=== PATIENT | female | born 1960 | race Caucasian/White ===

== ENCOUNTER → 2018-01-31 07:45 | Outpatient (CLI) | payer OTHER, SELFPAY ==
[2018-01-31 10:21] LABS: Alanine Aminotransferase 40 IU/L (9-52); Albumin 4.5 g/dL (3.5-5.0); Albumin Globulin Ratio 1.6 (1.0-2.8); Alkaline Phosphatase 101 U/L (38-126); Aspartate Aminotransferase 35 IU/L (14-36); BUN Creatinine Ratio 24.3 (6-22); Bilirubin Total 0.7 mg/dL (0.2-1.3); Blood Urea Nitrogen 17 mg/dL (7-17); Calcium 9.4 mg/dL (8.4-10.2); Carbon Dioxide 29 mmol/L (22-32); Chloride 104 mmol/L (98-107); Cholesterol 221 mg/dL (140-199); Estimated Glomerular Filt Rate > 60.0 mL/min (>60); Globulin 2.9 g/dL (1.7-4.1); Glucose 98 mg/dL (70-100); HDL Cholesterol 52 mg/dL (40-60); HEMOLYSIS < 15 (0-50); LDL Cholesterol Calculated 141 mg/dL (<100); Potassium 4.2 mmol/L (3.4-5.1); Sodium 144 mmol/L (137-145); Total Protein 7.4 g/dL (6.3-8.2); Triglycerides 140 mg/dL (35-150)
[2018-01-31 10:30] LABS: Free T4, Direct Thyroxine 1.08 ng/dL (0.78-2.19)
[2018-01-31 10:44] LABS: Thyroid Stimulating Hormone 2.18 uIU/mL (0.47-4.68)
== END ==
PROVIDERS: PCP Physician Assistant; Visit Provider Physician Assistant
DX: E78.2 Mixed hyperlipidemia (principal); I89.0 Lymphedema, not elsewhere classified; R53.83 Other fatigue
CPT/HCPCS: 36415; 80053; 80061; 84439; 84443

== ENCOUNTER → 2018-03-16 08:40 | Outpatient (CLI) | payer OTHER, SELFPAY | PROVIDERS: PCP Physician Assistant; Visit Provider Physician Assistant | DX: N30.91 Cystitis, unspecified with hematuria (principal) | CPT/HCPCS: 87077; 87086; 87186 ==

== ENCOUNTER → 2018-06-29 14:58 | Outpatient (CLI) | payer OTHER, SELFPAY ==
--- NOTE | 2018-06-29 15:00 | DI.MG.S_ITS ---
BILATERAL DIGITAL SCREENING MAMMOGRAM 3D/2D WITH CAD: 06/29/2018 CLINICAL: Routine screening. Comparison is made to exams dated: 01/31/2017 mammogram - [facility], 12/23/2014 mammogram, and 12/02/2013 mammogram - [facility]. There are scattered fibroglandular elements in both breasts. Current study was also evaluated with a Computer Aided Detection (CAD) system. There is a benign biopsy clip in the right breast. No significant masses, calcifications, or other findings are seen in either breast. There has been no significant interval change. IMPRESSION: NEGATIVE There is no mammographic evidence of malignancy. A 1 year screening mammogram is recommended. This exam was interpreted at Station ID: [id number]. NOTE: For mammograms, a report in lay terms will be sent to the patient. Approximately 15% of breast malignancies will not be visualized mammographically. In the management of a palpable breast mass, a negative mammogram must not discourage biopsy of a clinically suspicious lesion. Electronically Signed By: Simon oconnell/pro:06/29/2018 17:21:21 letter sent: Normal Exam ACR BI-RADS Category 1: Negative 3341F
== END ==
PROVIDERS: PCP Physician Assistant; Visit Provider Physician Assistant
DX: Z12.31 Encounter for screening mammogram for malignant neoplasm of breast (principal); M85.851 Other specified disorders of bone density and structure, right thigh; Z78.0 Asymptomatic menopausal state; Z82.62 Family history of osteoporosis
CPT/HCPCS: 77063; 77067; 77080

== ENCOUNTER → 2019-04-14 15:45 | Outpatient (CLI) | payer OTHER, SELFPAY ==
[2019-04-14 16:07] LABS: Bacteria Urine None Seen
[2019-04-14 16:19] LABS: Add Manual Diff / Slide Review NO; Basophils Absolute Auto 0 /uL (0-100); Basophils Percent Auto 0.5 % (0-2); Eosinophils Absolute Auto 100 /uL (0-450); Eosinophils Percent Auto 1.6 % (2-4); Hematocrit 44.7 % (36-46); Hemoglobin 15.3 g/dL (12.0-16.0); Lymphocytes Absolute Auto 1400 /uL (1100-4500); Lymphocytes Percent Auto 28.4 % (25-40); Mean Corpuscular HGB Conc 34.3 % (30-36); Mean Corpuscular Hemoglobin 31.1 PG (26-34); Mean Corpuscular Volume 90.6 fL (80-100); Monocytes Absolute Auto 400 /uL (0-900); Monocytes Percent Auto 8.2 % (3-14); Neutrophils Absolute Auto 3100 /uL (1500-7000); Neutrophils Percent Auto 61.3 % (50-75); Platelet Count 208 X10^3/uL (150-400); Red Blood Cell Count 4.93 X10^6/uL (4.0-5.2); Red Cell Distribution Width 12.5 % (11.6-14.8)
[2019-04-14 16:38] LABS: C-Reactive Protein Quant 0.8 mg/dL (<1.0)
[2019-04-14 16:49] LABS: Appearance Urine UA CLEAR; Bilirubin Urine UA NEGATIVE (NEGATIVE); Color Urine UA YELLOW; Glucose Urine UA NEGATIVE (Negative); Ketones Urine UA NEGATIVE (NEGATIVE); Leukocyte Esterase Urine UA TRACE (NEGATIVE); Nitrite Urine UA NEGATIVE (Negative); Occult Blood Urine UA NEGATIVE (Negative); Protein Urine UA NEGATIVE (Negative); Specific Gravity Urine UA <=1.005 (1.000-1.035); Urobilinogen Urine UA 0.2 E.U./dL (0.2)
[2019-04-14 17:04] LABS: TSH w/ Reflex to FT4 2.31 uIU/mL (0.47-4.68)
[2019-04-14 17:33] LABS: Culture Indicated Urine Cult Not Indicated; RBC Urine 0-1/HPF (0-5/HPF); Squamous Epithelial Cell Urine 0-1 /HPF (0-5/HPF); WBC Urine 0-1/HPF (0-5/HPF)
== END ==
PROVIDERS: Family Provider Physician Assistant; PCP Physician Assistant; Visit Provider Nurse Practitioner Family
DX: R19.7 Diarrhea, unspecified (principal); K52.9 Noninfective gastroenteritis and colitis, unspecified
CPT/HCPCS: 36415; 81001; 84443; 85025; 86140

== ENCOUNTER → 2019-04-17 11:30 | Outpatient (CLI) | payer OTHER, SELFPAY ==
[2019-04-17 13:40] LABS: Clostridium Difficile Tox PCR Negative for C. diff
[2019-04-22 22:30] LABS: Calprotectin, Stool < 15.6 mcg/g
== END ==
PROVIDERS: Family Provider Physician Assistant; PCP Physician Assistant; Visit Provider Nurse Practitioner Family
DX: R19.7 Diarrhea, unspecified (principal)
CPT/HCPCS: 83993; 87045; 87177; 87493; 87899

== ENCOUNTER → 2019-08-24 15:22 | Outpatient (CLI) | payer OTHER, SELFPAY ==
[2019-08-24 16:52] LABS: Add Manual Diff / Slide Review NO; Basophils Absolute Auto 0 /uL (0-100); Basophils Percent Auto 0.7 % (0-2); Eosinophils Absolute Auto 100 /uL (0-450); Hematocrit 44.4 % (36-46); Hemoglobin 15.4 g/dL (12.0-16.0); Lymphocytes Absolute Auto 1300 /uL (1100-4500); Lymphocytes Percent Auto 22.4 % (25-40); Mean Corpuscular HGB Conc 34.6 % (30-36); Mean Corpuscular Hemoglobin 31.6 PG (26-34); Mean Corpuscular Volume 91.2 fL (80-100); Monocytes Absolute Auto 400 /uL (0-900); Monocytes Percent Auto 7.8 % (3-14); Neutrophils Absolute Auto 3900 /uL (1500-7000); Neutrophils Percent Auto 68.1 % (50-75); Platelet Count 203 X10^3/uL (150-400); Red Blood Cell Count 4.87 X10^6/uL (4.0-5.2); Red Cell Distribution Width 12.6 % (11.6-14.8); White Blood Cell Count 5.7 X10^3/uL (4.5-11.0)
[2019-08-24 18:09] LABS: Alanine Aminotransferase 28 IU/L (<35); Albumin 4.7 g/dL (3.5-5.0); Albumin Globulin Ratio 1.5 (1.0-2.8); Alkaline Phosphatase 92 U/L (38-126); Aspartate Aminotransferase 33 IU/L (14-36); BUN Creatinine Ratio 18.5 (6-22); Bilirubin Total 0.6 mg/dL (0.2-1.3); Bilirubin Unconjugated 0.5 mg/dL (0.0-1.1); Blood Urea Nitrogen 17 mg/dL (7-17); Calcium 9.6 mg/dL (8.4-10.2); Carbon Dioxide 28 mmol/L (22-32); Chloride 102 mmol/L (98-107); Estimated Glomerular Filt Rate > 60.0 mL/min (>60); Globulin 3.1 g/dL (1.7-4.1); Glucose 80 mg/dL (80-110); HEMOLYSIS < 15 (0-50); Potassium 4.4 mmol/L (3.4-5.1); Sodium 140 mmol/L (137-145); Total Protein 7.8 g/dL (6.3-8.2)
== END ==
PROVIDERS: Family Provider Physician Assistant; PCP Physician Assistant; Referring Provider Podiatrist; Visit Provider Podiatrist
DX: B35.3 Tinea pedis (principal)
CPT/HCPCS: 36415; 80048; 80076; 85025

== ENCOUNTER → 2019-11-29 14:25 | Outpatient (CLI) | payer OTHER, SELFPAY ==
--- NOTE | 2019-12-23 09:31 | P.HOLT.S_ITS ---
Cat Scanner Operator Report Referral & Results Date Patient Seen: 11/29/19 Requesting provider: Avelino Rhodes Indication: Bradycardia Duration of monitoring (days): 14 Diary information: There were 10 patient triggered events and 10 patient diary entries Patient triggered events were variably associated (within 45 seconds of triggered event) with sinus rhythm, PACs, PVCs, and SVT Patient's recorded diary events were associated with sinus rhythm only Data: Minimum heart rate identified was 40 beats per minute at 12:10 on 12/09/2019 Maximum sinus heart rate was 91 beats per minute at 20:03 on 12/05/2019 Maximum overall heart rate was 160 beats per minute at 20:52 on 12/08/2019 during a 10 beat run of SVT Less than 1% of identified beats or either ventricular or supraventricular ectopic in origin Patient had 13 runs of SVT/atrial tachycardia the longest being 14 beats at a rate of 106 beats per minute which suggest atrial tachycardia. Overall patient was minimally bradycardic with heart rate between 50 and 60 a large % of the time Patient's overall minimum heart rate was relatively bradycardic as well as above Impression: This 14 day monitoring and evaluation advisor demonstrates perhaps mild bradycardia with absolute slowest heart rate being rather bradycardic at 40 beats per minute However patient's symptoms did not seem to correlate with any specific dysrhythmia Clinical correlation suggested
== END ==
PROVIDERS: Family Provider Family Medicine; PCP Family Medicine; Referring Provider Family Medicine; Visit Provider Family Medicine
DX: R00.1 Bradycardia, unspecified (principal)
CPT/HCPCS: 0296T; 0298T

== ENCOUNTER → 2019-12-30 09:53 | Outpatient (CLI) | payer OTHER, SELFPAY ==
[2019-12-30 10:28] LABS: Add Manual Diff / Slide Review NO; Basophils Absolute Auto 0 /uL (0-100); Basophils Percent Auto 0.7 % (0-2); Eosinophils Absolute Auto 0 /uL (0-450); Eosinophils Percent Auto 1.1 % (2-4); Hematocrit 42.2 % (36-46); Hemoglobin 14.4 g/dL (12.0-16.0); Lymphocytes Absolute Auto 900 /uL (1100-4500); Lymphocytes Percent Auto 21.2 % (25-40); Monocytes Absolute Auto 400 /uL (0-900); Monocytes Percent Auto 8.7 % (3-14); Neutrophils Absolute Auto 2900 /uL (1500-7000); Neutrophils Percent Auto 68.3 % (50-75); Platelet Count 167 X10^3/uL (150-400); Red Blood Cell Count 4.64 X10^6/uL (4.0-5.2); Red Cell Distribution Width 13.2 % (11.6-14.8); White Blood Cell Count 4.3 X10^3/uL (4.5-11.0)
[2019-12-30 10:34] LABS: Alanine Aminotransferase 34 IU/L (<35); Albumin 4.5 g/dL (3.5-5.0); Albumin Globulin Ratio 1.7 (1.0-2.8); Alkaline Phosphatase 111 U/L (38-126); Aspartate Aminotransferase 36 IU/L (14-36); BUN Creatinine Ratio 27.6 (6-22); Bilirubin Total 0.4 mg/dL (0.2-1.3); Bilirubin Unconjugated 0.3 mg/dL (0.0-1.1); Blood Urea Nitrogen 16 mg/dL (7-17); Estimated Glomerular Filt Rate > 60.0 mL/min (>60); Globulin 2.7 g/dL (1.7-4.1); HEMOLYSIS < 15 (0-50); Total Protein 7.2 g/dL (6.3-8.2)
== END ==
PROVIDERS: Family Provider Family Medicine; PCP Family Medicine; Referring Provider Podiatrist; Visit Provider Podiatrist
DX: B35.1 Tinea unguium (principal); B35.3 Tinea pedis
CPT/HCPCS: 36415; 80076; 82565; 84520; 85025

== ENCOUNTER → 2020-01-15 07:59 | Outpatient (CLI) | payer OTHER, SELFPAY ==
[2020-01-15 09:41] LABS: Cholesterol 227 mg/dL (140-199); HDL Cholesterol 45 mg/dL (40-60); LDL Cholesterol Calculated 149 mg/dL (<100); Triglycerides 165 mg/dL (35-150)
== END ==
PROVIDERS: Family Provider Family Medicine; PCP Family Medicine; Referring Provider Family Medicine; Visit Provider Family Medicine
DX: E78.5 Hyperlipidemia, unspecified (principal)
CPT/HCPCS: 36415; 80061

== ENCOUNTER → 2020-01-17 11:12 | Outpatient (CLI) | payer OTHER, SELFPAY ==
[2020-01-18 07:28] LABS: COVID19 Sendout Not Detected (Not Detect)
== END ==
PROVIDERS: Family Provider Family Medicine; PCP Family Medicine; Visit Provider Physician Assistant
DX: Z11.59 Encounter for screening for other viral diseases (principal)
CPT/HCPCS: 87635

== ENCOUNTER → 2020-01-20 13:12 | Outpatient (CLI) | payer OTHER, SELFPAY ==
--- NOTE | 2020-01-20 14:29 | PM.TREADMILL ---
Cardiac Stress Test Report Referral & Results Date Patient Seen: 01/20/20 Time Patient Seen: 14:15 Requesting provider: Avelino Rhodes Indication: Ischemia, sustained ventricular tachycardia Rest ECG: Normal sinus rhythm Procedure Note: Today following both written and verbal informed consent the patient was exercised according to a modified Jean protocol in which stage II was continued until the end of the test. Patient went for a total of 7 minutes 16 seconds achieving a maximum heart rate of 117 maximum systolic blood pressure of 170. This is approximately 7.0 METs. Exercise was terminated at this point because of fatigue. Patient was also given Cardiolite through a previously started Hep-Lock IV by the nuclear medicine pet ct technologist approximately 1 minute prior to the cessation of exercise. Slow hemodynamic response to exercise. Nadolol was held last night. Right leg pain and weakness limited exercise. Subjectively reduced exercise capacity, but not assessed with standard protocol. Diffuse ST changes that resolved rapidly with rest. No changes in rhythm. Presenting shortness of breath and atypical angina only minimally reproduced on exercise. Impression: Intermediate probability for ischemia. Will await perfusion imaging. Please note: Actual ECG tracings can be found in the PACS system.
--- NOTE | 2020-01-21 16:22 | DI.NM.S_ITS ---
DATE OF SERVICE: 01/20/2020 PROCEDURE PERFORMED: Exercise treadmill stress and rest myocardial perfusion imaging with gating to assess ejection fraction and regional wall motion. INDICATIONS: The patient is a 59-year-old female with palpitations and atypical chest pain. ORDERING PROVIDER: Dr. Juan Rhodes EXERCISE TREADMILL TESTING: The patient was able to complete 5 minutes of a Jean protocol with continued exercise at stage II for a total duration of 7 minutes 16 seconds, suggesting probable average exercise capacity. She had a somewhat blunted heart rate response to exercise, achieving a maximum heart rate of 117 BPM (73% of her predicted maximum). She had a normal blood pressure response. She apparently had dyspnea and atypical chest discomfort at rest that only slightly worsened with exercise. Her resting ECG showed sinus rhythm with normal ST segments. With exercise, there was minimal upsloping ST depression, but no concerning ST abnormalities. There were no arrhythmias. At 6 minutes 20 seconds of exercise at a heart rate of 115 BPM, 26.0 millicuries of technetium-99m Myoview was injected and the patient imaged 30 minutes later using a gated SPECT acquisition protocol. She returned the following day and was reinjected with an additional 25.4 millicuries of technetium-99m Myoview and was imaged 30 minutes later, again with a gated SPECT acquisition algorithm. FINDINGS: 1. Raw data: There are moderate breast shadows noted which could produce some attenuation. Lung/heart ratio was normal at 0.28. TID ratio is normal at 0.71. 2. Quantitated gated SPECT: Post-stress ejection fraction is estimated at 86% without any focal wall motion abnormality and, specifically, the anterior wall appears to have normal contractility. Resting ejection fraction is estimated at 80% with a normal end-diastolic volume of 98 mL. 3. Myocardial perfusion imaging: Post-stress supine images show a mild perfusion defect throughout the base of the left ventricle and in the mid to distal anterior wall in a pattern that would be consistent with breast attenuation artifact, supported by its complete resolution on the prone images, although a very slight distal anteroseptal defect is noted. The resting images show a similar perfusion pattern, although the base of the left ventricle has somewhat more tracer activity, but the defect is predominantly fixed. IMPRESSION: 1. Probable normal myocardial perfusion study although with reduced sensitivity because of a marginal heart rate response to exercise. 2. Mild fixed mid and distal anterior and anteroseptal defect that resolves on prone imaging, most consistent with breast attenuation artifact. While previous nontransmural myocardial infarction cannot be entirely excluded, it is unlikely given the vigorous left ventricular systolic function in this area. 3. Normal left ventricular systolic function without focal wall motion abnormality. 4. Probable fair exercise capacity apparently with atypical chest discomfort, present at rest with minimal worsening with stress but no ECG evidence of ischemia. Joan Drummond - TONY/crystal/siva doc#: [id number]/job#: [id number] dd: 01/21/2020 13:01:00 dt: 01/21/2020 16:08:00 DICTATING MD/COPIES TO: Andrew Coppola MD; Juan Rhodes M.D. COPIES MNE: KIERSTEN;
== END ==
PROVIDERS: Family Provider Family Medicine; PCP Family Medicine; Referring Provider Family Medicine; Visit Provider Family Medicine
DX: R00.2 Palpitations (principal); R07.89 Other chest pain; I47.1 Supraventricular tachycardia; I99.8 Other disorder of circulatory system; Z87.898 Personal history of other specified conditions
CPT/HCPCS: 78452; 93016; 93017; 93018; A9502

== ENCOUNTER → 2021-02-10 16:01 | Outpatient (CLI) | payer OTHER, SELFPAY ==
--- NOTE | 2021-02-10 16:02 | DI.MG.S_ITS ---
BILATERAL DIGITAL SCREENING MAMMOGRAM 3D/2D WITH CAD: 02/10/2021 CLINICAL: Routine screening. Comparison is made to exams dated: 06/29/2018 mammogram, 01/31/2017 mammogram - [facility], and 12/23/2014 mammogram - [facility]. There are scattered fibroglandular elements in both breasts. Current study was also evaluated with a Computer Aided Detection (CAD) system. There is a biopsy clip in the right breast. No significant masses, calcifications, or other findings are seen in either breast. There has been no significant interval change. IMPRESSION: NEGATIVE There is no mammographic evidence of malignancy. A 1 year screening mammogram is recommended. This exam was interpreted at Station ID: [id number]. NOTE: For mammograms, a report in lay terms will be sent to the patient. Approximately 15% of breast malignancies will not be visualized mammographically. In the management of a palpable breast mass, a negative mammogram must not discourage biopsy of a clinically suspicious lesion. Electronically Signed By: Johnathon mansfield/pro:02/13/2021 08:36:01 letter sent: Normal Exam ACR BI-RADS Category 1: Negative 3341F
== END ==
PROVIDERS: Family Provider Family Medicine; PCP Family Medicine; Referring Provider Family Medicine; Visit Provider Family Medicine
DX: Z12.31 Encounter for screening mammogram for malignant neoplasm of breast (principal)
CPT/HCPCS: 77063; 77067

== ENCOUNTER → 2021-02-16 15:02 | Outpatient (CLI) | payer OTHER, SELFPAY ==
--- NOTE | 2021-02-16 15:03 | DI.ECHO.S_ITS ---
[facility] +---------+ : : [address] : : : : [id number] : : : : Phone: [phone]+ Echocardiogram Report + + :Name: SONY MAGDALENO Study Date: 02/16/2021 Height: 67 in : :[facility] ReadingLocation: Weight: 240 lb : : Gender: Female BSA: 2.2 m2 : :: 1960 Age: 60 yrs BP: 130/78 mmHg: :Reason For Study: Palpitations : :Ordering Physician: NAY, : :MOOK Performed By: Jamal Beaver : :Referring: MOOK TEE : + + Interpretation Summary The left ventricle is normal in size and wall thickness. The ejection fraction is estimated to be 55-60%. The right ventricle is normal in size and function. There is mild aortic regurgitation. The IVC is of normal diameter and collapses greater than 50% with a sniff. This suggests a low right atrial pressure of 3 mm Hg. Procedure: A two-dimensional transthoracic echocardiogram with color flow and Doppler was performed. The study quality was technically adequate. There is no prior echocardiogram noted for this patient. The patient was in sinus bradycardia with heart rates between 50-57 bpm during the exam. Left Ventricle: The left ventricle is normal in size and wall thickness. There is no thrombus. A false chord is noted (normal variant). Left ventricular systolic function is normal. The ejection fraction is estimated to be 55-60%. There are no focal wall motion abnormalities. Diastolic function was not assessed however septal E velocity 9.4 cm/s within normal limit. Right Ventricle: The right ventricle is normal in size and function. Atria: Both atria are normal in size. There is no Doppler evidence for an interatrial shunt. Mitral Valve: The mitral valve is normal in structure and function. There is trace mitral regurgitation. Aortic Valve: The aortic valve is not well visualized. There is no aortic valve stenosis. There is mild aortic regurgitation. Tricuspid Valve: The tricuspid valve is normal in structure and function. Pulmonary artery pressures cannot be estimated because of the lack of a measurable TR jet velocity but the IVC suggests a CVP of around 3 mmHg. There is trace tricuspid regurgitation. Pulmonic Valve: The pulmonic valve is not well visualized. There is no pulmonic valvular regurgitation. Great Vessels: The aortic root is normal size. The dimensions of the ascending aorta are normal. The IVC is of normal diameter and collapses greater than 50% with a sniff. This suggests a low right atrial pressure of 3 mm Hg. Pericardium/ Pleura There is no pericardial effusion. There is an anterior echo-free space consistent with a fat pad. There is no pleural effusion. MMode/2D Measurements & Calculations LVIDd: 4.4 cm LVOT diam: 2.1 cm LVIDs: 2.8 cm Ao root diam: 3.2 cm FS: 35.8 % asc Aorta Diam: 3.6 cm IVSd: 0.90 cm LVPWd: 0.93 cm LV carranza. diameter/BSA (cm/m^2): 2.0 LV sys. diameter/BSA (cm/m^2): 1.3 LA A2 area: 18.7 cm2 RA long axis: 5.3 cm LA A4 area: 19.1 cm2 RA area: 15.9 cm2 LA length (vol): 5.5 cm RA vol: 40.8 ml LA vol: 54.6 ml RA : 18.7 ml/m2 LA vol index: 25.0 ml/m2 TAPSE: 2.4 cm Doppler Measurements & Calculations Ao V2 max: 171.1 cm/sec LVOT Max Christopher: 142.3 cm/sec Ao V2 mean: 115.7 cm/sec LV V1 max P.1 mmHg Ao max P.7 mmHg LV V1 VTI: 32.0 cm Ao mean P.1 mmHg MARTIN(I,D): 2.9 cm2 Ao V2 VTI: 39.4 cm MARTIN(V,D): 2.9 cm2 sev ratio: 0.81 MARTIN indexed to BSA (cm^2/m^2): 1.3 Med Peak E' Christopher: 9.4 cm/sec PA pr(Accel): 36.2 mmHg Lat Peak E' Christopher: 12.2 cm/sec SV(LVOT): 113.5 ml Reading Physician:05:20 PM
== END ==
PROVIDERS: Family Provider Family Medicine; PCP Family Medicine; Referring Provider Family Medicine; Visit Provider Family Medicine
DX: R00.2 Palpitations (principal); I20.1 Angina pectoris with documented spasm; I47.1 Supraventricular tachycardia; I35.1 Nonrheumatic aortic (valve) insufficiency; Z87.898 Personal history of other specified conditions
CPT/HCPCS: 93306

== ENCOUNTER → 2021-04-28 08:22 | Outpatient (CLI) | payer OTHER, SELFPAY ==
[2021-04-28 10:44] LABS: Cholesterol 254 mg/dL (140-199); HDL Cholesterol 55 mg/dL (40-60); LDL Cholesterol Calculated 171 mg/dL (<100); Triglycerides 142 mg/dL (35-150)
== END ==
PROVIDERS: Family Provider Family Medicine; PCP Family Medicine; Referring Provider Internal Medicine Cardiovascular Disease; Visit Provider Internal Medicine Cardiovascular Disease
DX: Z00.00 Encounter for general adult medical examination without abnormal findings (principal)
CPT/HCPCS: 36415; 80061

== ENCOUNTER → 2021-05-11 15:59 | Outpatient (CLI) | payer OTHER, SELFPAY ==
[2021-05-11 16:25] LABS: COVID19 -Nasal RAPID Negative (Negative)
== END ==
PROVIDERS: Family Provider Family Medicine; PCP Family Medicine; Visit Provider Nurse Practitioner Family
DX: Z20.822 Contact with and (suspected) exposure to COVID-19 (principal)
CPT/HCPCS: 87635

== ENCOUNTER → 2021-05-14 15:00 | Outpatient (CLI) | payer OTHER, SELFPAY ==
--- NOTE | 2021-05-15 18:10 | DI.NM.S_ITS ---
DATE OF SERVICE: PROCEDURE: Exercise stress test. DATE OF STUDY: May 14, 2021 INDICATIONS: Palpitation. EXERCISE STRESS TESTING: The patient underwent exercise stress test under the supervision of an attending staff. She walked on Jean protocol for 6 minutes and 05 seconds, achieved 79 percent of target heart rate with maximum heart rate of 126 beats per minute. Baseline blood pressure 120/68. Maximum blood pressure 152/64 with normal blood pressure response. Baseline rhythm was sinus with sinus bradycardia, rate about 52 beats per minute. During exercise, there was nonspecific upsloping depression, which was less than 1 mm in inferolateral leads with resolution in recovery. No convincing ischemic changes. In recovery, the patient has some isolated PVCs without any sustained ventricular tachycardia. Oxygen saturation 97 percent on room air. During peak exercise, the patient felt chest tightness, which was on a scale of 1-10, 5 in intensity and improved in recovery. CONCLUSION: Submaximal exercise stress test did not reveal any obvious convincing ischemic changes. Diminished exercise tolerance. CORINNE positive 10 percent and 7 METs of workload. Normal blood pressure response. Nonspecific EKG changes. Some isolated PVCs in recovery. Chest tightness at peak exercise, which got resolved during recovery. Consider repeating exercise stress test with imaging modality like exercise stress echo or exercise perfusion study. Joan Drummond - STEPHANIE/crystal/ellen doc#: [id number]/job#: [id number] dd: 05/15/2021 17:37:00 dt: 05/15/2021 17:59:00 DICTATING /COPIES TO: Ramona Judge MD COPIES MNE: MOISES;
== END ==
PROVIDERS: Family Provider Family Medicine; PCP Family Medicine; Referring Provider Internal Medicine Cardiovascular Disease; Visit Provider Internal Medicine Cardiovascular Disease
DX: R07.9 Chest pain, unspecified (principal); R00.2 Palpitations
CPT/HCPCS: 93017

== ENCOUNTER → 2021-06-22 11:55 | Outpatient (CLI) | payer OTHER, SELFPAY ==
[2021-06-22 19:39] LABS: COVID19 -Nasal RAPID Negative (Negative)
== END ==
PROVIDERS: Family Provider Family Medicine; PCP Family Medicine; Visit Provider Nurse Practitioner Family
DX: Z01.812 Encounter for preprocedural laboratory examination (principal); Z20.822 Contact with and (suspected) exposure to COVID-19
CPT/HCPCS: 87635

== ENCOUNTER → 2021-06-25 09:52 | Outpatient (CLI) | payer OTHER, SELFPAY ==
--- NOTE | 2021-06-26 11:57 | PM.TREADMILL ---
Cardiac Stress Test Report Referral & Results Date Patient Seen: 06/26/21 Time Patient Seen: 11:58 Requesting provider: Cece Delaney Indication: Chest pain Rest ECG: Sinus rhythm Procedure Note: Standard Jean protocol, 6:54, 6.9 MEtS Fair exercise capacity, CORINNE -2% Normal hemodynamic response to exercise No chest pain or anginal symptoms No significant ST changes at peak exercise Ocassional PVc Impression: Normal exercise stress test Please note: Actual ECG tracings can be found in the PACS system.
--- NOTE | 2021-06-26 18:07 | DI.NM.S_ITS ---
DATE OF SERVICE: 06/25/2021 PROCEDURE PERFORMED: Exercise treadmill stress and rest myocardial perfusion imaging study with gating to assess ejection fraction and regional wall motion. INDICATIONS: The patient is a 60-year-old female with atypical chest discomfort. EXERCISE TREADMILL TESTING: The patient was able to exercise for 6 minutes 54 seconds on a standard Jean protocol suggesting average exercise capacity with an CORINNE of -2%. She had a normal hemodynamic response to exercise, achieving a maximum heart rate of 144 BPM (91% of her predicted maximum). She had no chest pain or anginal symptoms with stress. Her resting ECG shows sinus rhythm with normal ST segments. There were no significant ST-segment shifts or arrhythmias with stress. At 6 minutes, 10 seconds of exercise at a heart rate of 139 BPM, 24.8 mCi of technetium-99m Myoview was injected and she was imaged 20 minutes later using a gated SPECT acquisition protocol. The day prior, she had been injected with 24.5 mCi of technetium-99m Myoview while at rest and was imaged 30 minutes later using a gated SPECT acquisition protocol. FINDINGS: 1. Raw Data: There appears to be fairly good myocardial tracer uptake with only slight breast attenuation artifact. The lung/heart ratio is normal at 0.32 with a normal TID ratio of 0.92. 2. Quantitated Gated SPECT: Post-stress ejection fraction is estimated at 89% without any focal wall motion abnormality and is likely an overestimate because of relatively small left ventricular volumes. Resting ejection fraction is estimated at 86%, again likely an overestimate, with a resting end-diastolic volume of 105 mL. 3. Myocardial perfusion imaging: Post-stress supine images show a fairly normal myocardial perfusion pattern with a very mild defect in the mid to distal anteroseptal segment that is consistent with breast attenuation artifact, supported by its complete resolution on the prone images. There are no other perfusion defects. The resting images show an identical perfusion pattern without any obvious areas of improvement. IMPRESSION: 1. Normal myocardial perfusion study. 2. Mild fixed mid to distal anteroseptal defect that resolves on prone imaging, consistent with breast attenuation artifact. There is no evidence for any myocardial ischemia or previous myocardial infarction. 3. High-normal left ventricular systolic function without any focal wall motion abnormality. 4. Average exercise capacity without angina or ECG evidence of ischemia. 5. Compared to her previous myocardial perfusion imaging study on 01/20/2020, an identical perfusion pattern was seen previously with a mild fixed defect in the mid to distal anterior septum that resolved on prone imaging. Previous ejection fraction was estimated in the 80-86% range as well. There has been no significant change since the previous study. Joan Drummond - TONY/crystal/SAPPHIRE doc#: [id number]/job#: [id number] dd: 06/26/2021 15:09:00 dt: 06/26/2021 17:19:00 DICTATING MD/COPIES TO: Andrew Coppola MD; Cece Delaney MD COPIES MNE: KIERSTEN;
== END ==
PROVIDERS: Family Provider Family Medicine; PCP Family Medicine; Referring Provider Internal Medicine Cardiovascular Disease; Visit Provider Internal Medicine Cardiovascular Disease
DX: R07.9 Chest pain, unspecified (principal); R94.39 Abnormal result of other cardiovascular function study
CPT/HCPCS: 78452; 93017; A9502

== ENCOUNTER 2021-11-19 08:36 | Observation (INO) | payer OTHER, SELFPAY ==
[2021-11-19] VITALS (25 sets, daily range): BP systolic 105–145; BP diastolic 56–92; PULSE 48–56; RESP 17–32; TEMP 36.3–36.6; O2SAT 95–99; BMI 37.5
--- NOTE | 2021-11-19 08:54 | DI.RAD.S_ITS ---
PROCEDURE: XR CHEST 1V INDICATIONS: chest pain TECHNIQUE: One view of the chest was acquired. COMPARISON: None. FINDINGS: Surgical changes and devices: None. Lungs and pleura: Lungs are clear. No pleural effusions or pneumothorax. Mediastinum: Mediastinal contours appear normal. Heart size is normal. Bones and chest wall: No suspicious bony lesions. Overlying soft tissues appear unremarkable. IMPRESSION: No acute cardiopulmonary disease process. Dictated by: Lucero Foley MD, PhD on 11/19/2021 at 9:34 Approved by: Lucero Foley MD, PhD on 11/19/2021 at 9:45
[2021-11-19 09:11] LABS: Add Manual Diff / Slide Review NO; Basophils Absolute Auto 100 /uL (0-100); Basophils Percent Auto 0.9 % (0-2); Eosinophils Absolute Auto 100 /uL (0-450); Eosinophils Percent Auto 1.1 % (2-4); Hematocrit 41.7 % (36-46); Hemoglobin 14.7 g/dL (12.0-16.0); Lymphocytes Absolute Auto 1200 /uL (1100-4500); Lymphocytes Percent Auto 17.1 % (25-40); Mean Corpuscular HGB Conc 35.2 % (30-36); Mean Corpuscular Hemoglobin 31.8 PG (26-34); Mean Corpuscular Volume 90.6 fL (80-100); Monocytes Absolute Auto 600 /uL (0-900); Monocytes Percent Auto 7.9 % (3-14); Neutrophils Absolute Auto 5300 /uL (1500-7000); Platelet Count 187 X10^3/uL (150-400); White Blood Cell Count 7.2 X10^3/uL (4.5-11.0)
[2021-11-19 09:23] LABS: Alanine Aminotransferase 30 IU/L (<35); Albumin 4.5 g/dL (3.5-5.0); Albumin Globulin Ratio 1.4 (1.0-2.8); Alkaline Phosphatase 88 U/L (38-126); Aspartate Aminotransferase 34 IU/L (14-36); BUN Creatinine Ratio 23.4 (6-22); Bilirubin Total 0.4 mg/dL (0.2-1.3); Blood Urea Nitrogen 22 mg/dL (7-17); Calcium 9.1 mg/dL (8.4-10.2); Carbon Dioxide 32 mmol/L (22-32); Chloride 103 mmol/L (98-107); Creatine Kinase 32 U/L (30-135); Estimated Glomerular Filt Rate > 60 mL/min (>60); Globulin 3.3 g/dL (1.7-4.1); Glucose 109 mg/dL (80-110); HEMOLYSIS < 15 (0-50); Lipase 111 U/L (23-300); Magnesium 1.9 mg/dL (1.6-2.3); Potassium 3.9 mmol/L (3.4-5.1); Sodium 141 mmol/L (137-145); Total Protein 7.8 g/dL (6.3-8.2)
[2021-11-19 09:34] LABS: Troponin I < 0.012 ng/mL (0.01-0.034)
[2021-11-19] MEDS: ASPIRIN 81 MG CHEW TAB 162 MG PO (10:07)
[2021-11-19] MEDS: NITROGLYCERIN 0.4 MG SL TAB SL (10:08)
--- NOTE | 2021-11-19 11:07 | ED.CHESTPAIN ---
HPI - Chest Pain General Chief Complaint: Chest Pain Stated Complaint: chest pains earlier Time Seen by Provider: 11/19/21 10:04 Source: patient Mode of arrival: Family Vehicle Limitations: no limitations History of Present Illness HPI narrative: This is a 62-year-old female with history of migraines, bradycardia, chronic peripheral edema. Patient had chest pain that was substernal radiated to her neck and went to her back about 6:00 a.m. this morning. She took a nitro sublingual 06/14/2039 it resolved, patient states he does not have any currently. She has had a couple prior episodes the last was about a year ago. She was short of breath with this episode. She was not diaphoretic. No nausea or vomiting. She did feel lightheaded. No passing out. She has chronic swelling in her lower extremities but was worse about 2 days ago. She has had a cardiac workup in the past had stress testing in May of 2021 which was nonspecific and recommended to consider repeat, a normal echo in February of 2021 and Holter in December of 2019 which showed bradycardia but no acute arrhythmias. Patient is on nadolol for migraines, oral progesterone and trazodone as well as a Lasix daily for chronic peripheral edema. She has had prior knee surgery and appendectomy. She does not use tobacco, rare alcohol, no illicit. She is unsure family history she does not have direct contact with her biological family but dad may have of heart attack unknown age, she has a half sister that is healthy as far she is aware. Related Data Home Medications Medication Instructions Recorded Confirmed magnesium oxide 400 mg PO BID 09/01/18 02/17/21 melatonin 10 mg capsule 25 mg PO BEDTIME 06/11/19 02/17/21 terbinafine HCl 250 mg tablet 250 mg PO DAILY 12/30/19 02/17/21 Previous Rx's Medication Instructions Recorded albuterol sulfate 90 mcg/actuation 2 puff inhalation Q4-6H PRN 02/03/19 aerosol inhaler shortness of breath or wheezing #18 grams Progesterone 75mg 75 mg PO .HS #90 caplets 01/31/20 nitroglycerin 0.4 mg sublingual 0.4 mg sublingual Q5M PRN chest 02/04/20 tablet (Nitrostat) pain #10 tabs nadolol 40 mg tablet See Rx Instructions .Route 02/02/21 .COMPLEX #90 tabs amlodipine 5 mg tablet See Rx Instructions .Route 05/01/21 .COMPLEX #90 tabs furosemide 20 mg tablet See Rx Instructions .Route 09/03/21 .COMPLEX #120 tabs trazodone 50 mg tablet See Rx Instructions .Route 11/08/21 .COMPLEX #180 tabs Allergies Allergy/AdvReac Type Severity Reaction Status Date / Time nickel [NICKEL] Allergy Severe SEVERE PAIN Verified 11/19/21 08:53 amoxicillin [AMOXICILLIN] Allergy Intermediate HIVES Verified 11/19/21 08:53 FROM HEAD TO TOE AND EVERY IN BETWEEN bupivacaine [From MARCAINE] Allergy Intermediate HIVES Verified 11/19/21 08:53 FROM HEAD TO TOE AND EVERYWHERE IN BETWEEN neomycin [NEOMYCIN] Allergy Intermediate HIVES Verified 11/19/21 08:53 FROM HEAD TO TOE AND EVERYWHERE IN BETWEEN hydroxyzine [HYDROXYZINE] AdvReac Intermediate dystonia Verified 11/19/21 08:53 Review of Systems Review of Systems ROS Unobtainable: All systems reviewed & are unremarkable except as noted in HPI and below Patient History Medical History Actinic keratosis of right side of forehead Acute pain of left shoulder Bilateral carpal tunnel syndrome Bilateral hand numbness Bilateral lower extremity edema BMI 38.0-38.9,adult Cervical somatic dysfunction Chronic diarrhea Cranial somatic dysfunction Greater trochanteric bursitis of left hip History of exertional chest pain Hot flashes Hyperlipidemia Iliotibial band syndrome of both sides Insomnia Left shoulder strain Lumbar region somatic dysfunction Migraines (Unknown) Neck stiffness Neurogenic thoracic outlet syndrome of both brachial plexuses Nocturnal hypoxia (Unknown) Nonsustained paroxysmal supraventricular tachycardia Osteopenia (04/2016) Palpitations with regular cardiac rhythm Pelvic somatic dysfunction Postmenopausal Prinzmetal angina Right knee pain Rosacea Seborrheic keratoses Segmental and somatic dysfunction of abdomen and other regions Segmental and somatic dysfunction of lumbar region Segmental and somatic dysfunction of rib cage Segmental and somatic dysfunction of sacral region Segmental and somatic dysfunction of upper extremity Strain of gluteus medius of right lower extremity Superficial laceration Thoracic region somatic dysfunction Thoracic region somatic dysfunction Vasomotor flushing Surgical History History of appendectomy History of loop electrical excision procedure (LEEP) S/P ACL reconstruction (1987) Status post cholecystectomy Family History Brother Age: 67 Diabetes mellitus Mother Smoker Social History household members: spouse Smoking Status: Never smoker second hand exposure: No alcohol intake: current substance use type: does not use Smoking Status: Never smoker alcohol intake frequency: 0-2 drinks per day Substance Use Type: does not use Exam Narrative Exam Narrative: GENERAL: Alert and oriented x three, female mild distress. HEENT: Head normocephalic, atraumatic, EOMI, pupils reactive, face symmetric, moist mucous membranes NECK: Supple, full range of motion CARDIOVASCULAR: Regular rate and rhythm without murmurs, rubs or gallops. No JVD. Bilateral lower extremity swelling. No rash or skin changes appreciated on the chest. RESPIRATORY: Breath sounds equal bilaterally, no wheezes rales or rhonchi. ABDOMEN: Soft, nontender. Normoactive bowel sounds all 4 quadrants. No guarding or rebound, rigidity, no mass : No CVA tenderness EXTREMITIES: Normal range of motion, no clubbing or edema. Neurovascularly intact NEUROLOGICAL: Cranial nerves II through XII grossly intact. Moving all extremities SKIN: Warm, dry, no petechiae, no rashes or lesions. Initial Vital Signs Initial Vital Signs: Vital Signs Temperature 97.3 F L 11/19/21 08:44 Pulse Rate 48 L 11/19/21 08:44 Respiratory Rate 11/19/21 08:44 Blood Pressure 117/92 H 11/19/21 08:44 Course Orders Ordered: ED Orders 11/19/21 11:11 Troponin I Stat 11/19/21 11:43 COVID19 -Nasal RAPID/Pre-Proc Stat 11/19/21 11:58 CT angio chest PE protocol Stat 11/19/21 14:12 Urine Culture Stat Urine Microscopic Stat Acetaminophen (Acetaminophen 325 Mg Tablet) 975 mg PO Q8HR PRN PRN Reason: Fever > 100.4 Aspirin (Aspirin Ec 81 Mg Tablet) 81 mg PO DAILY NANDO Atorvastatin Calcium (Atorvastatin 20 Mg Tablet) 40 mg PO BEDTIME NANDO Nitroglycerin (Nitroglycerin 0.4 Mg Sl Tab) 0.4 mg SL [id number] PRN PRN Reason: Chest Pain Last Admin: 11/19/21 10:08 Dose: 0.4 mg Documented By: ERICK Ondansetron HCl (Ondansetron 4 Mg/2 Ml Inj) 4 mg IV Q8HR PRN PRN Reason: Nausea And Vomiting Discontinued Medications Aspirin (Aspirin 81 Mg Chew Tab) 162 mg PO NOW ONE Stop: 11/19/21 09:47 Last Admin: 11/19/21 10:07 Dose: 162 mg Documented By: RLS Consultations Consultation #1: Dr. Reyes, note patient had a recent stress echo in June 6 months ago. 2 negative troponins. Consultation #2: Dr. Delaney, cardiology if patient highly suspicious on her history he would recommend repeat stress testing at this time. He is aware of the patient she is his own personal patient. Patient does not have active chest pain at this time. Consultation #3: Re-contacted Dr. Reyes, hospitalist, he kindly accepts with plan for repeat stress/echo and cardiology recommendations shared. Vital Signs Vital signs: Vital Signs - 8 hr 11/19/21 12:24 11/19/21 12:24 11/19/21 12:30 Pulse Rate 53 L 52 L Respiratory Rate 30 H 27 H Blood Pressure 145/63 H Pulse Oximetry 96 95 11/19/21 13:00 11/19/21 13:30 11/19/21 14:00 Pulse Rate 50 L 50 L 53 L Respiratory Rate 26 H 23 28 H Blood Pressure Pulse Oximetry 97 95 98 11/19/21 14:15 11/19/21 14:15 11/19/21 14:30 Pulse Rate 49 L Respiratory Rate 24 Blood Pressure 125/64 121/60 Pulse Oximetry 95 11/19/21 14:30 Pulse Rate 50 L Respiratory Rate 24 Blood Pressure Pulse Oximetry 96 MDM - Chest Pain Lab Data Result diagrams: 11/19/21 09:00 11/19/21 09:00 Labs: Lab Results 11/19/21 11/19/21 11/19/21 Range/Units 09:00 09:00 09:00 WBC 7.2 (4.5-11.0) X10^3/uL RBC 4.60 (4.0-5.2) X10^6/uL Hgb 14.7 (12.0-16.0) g/dL Hct 41.7 (36-46) % MCV 90.6 (80-100) fL MCH 31.8 (26-34) PG MCHC 35.2 (30-36) % RDW 13.0 (11.6-14.8) % Plt Count 187 (150-400) X10^3/uL Neut % (Auto) 73.0 (50-75) % Lymph % (Auto) 17.1 L (25-40) % [place] % (Auto) 7.9 (3-14) % Eos % (Auto) 1.1 L (2-4) % Baso % (Auto) 0.9 (0-2) % Neut # (Auto) 5300 (8654-3290) /uL Lymph # (Auto) 1200 (4171-5019) /uL [place] # (Auto) 600 (0-900) /uL Eos # (Auto) 100 (0-450) /uL Baso # (Auto) 100 (0-100) /uL D-Dimer 402 H (<230) ng/mL Sodium 141 (137-145) mmol/L Potassium 3.9 (3.4-5.1) mmol/L Chloride 103 (98-107) mmol/L Carbon Dioxide 32 (22-32) mmol/L BUN 22 H (7-17) mg/dL Creatinine 0.94 (0.52-1.04) mg/dL Estimated GFR > 60 (>60) mL/min BUN/Creatinine Ratio 23.4 H (6-22) Glucose 109 (80-110) mg/dL Calcium 9.1 (8.4-10.2) mg/dL Magnesium 1.9 (1.6-2.3) mg/dL Total Bilirubin 0.4 (0.2-1.3) mg/dL AST 34 (14-36) IU/L ALT 30 (<35) IU/L Alkaline Phosphatase 88 (38-126) U/L Total Creatine Kinase 32 (30-135) U/L CK-MB (CK-2) TNP CK-MB (CK-2) Rel Index TNP Troponin I < 0.012 (0.01-0.034) ng/mL Total Protein 7.8 (6.3-8.2) g/dL Albumin 4.5 (3.5-5.0) g/dL Globulin 3.3 (1.7-4.1) g/dL Albumin/Globulin Ratio 1.4 (1.0-2.8) Lipase 111 (23-300) U/L Urine RBC (0-5/HPF) Urine WBC (0-5/HPF) Ur Squamous Epith Cells (0-5/HPF) Urine Bacteria (None) Ur Culture Indicated? SARS-CoV-2 (PCR) (Negative) 11/19/21 11/19/21 11/19/21 Range/Units 11:11 11:43 14:12 WBC (4.5-11.0) X10^3/uL RBC (4.0-5.2) X10^6/uL Hgb (12.0-16.0) g/dL Hct (36-46) % MCV (80-100) fL MCH (26-34) PG MCHC (30-36) % RDW (11.6-14.8) % Plt Count (150-400) X10^3/uL Neut % (Auto) (50-75) % Lymph % (Auto) (25-40) % [place] % (Auto) (3-14) % Eos % (Auto) (2-4) % Baso % (Auto) (0-2) % Neut # (Auto) (4179-7242) /uL Lymph # (Auto) (2610-1454) /uL [place] # (Auto) (0-900) /uL Eos # (Auto) (0-450) /uL Baso # (Auto) (0-100) /uL D-Dimer (<230) ng/mL Sodium (137-145) mmol/L Potassium (3.4-5.1) mmol/L Chloride (98-107) mmol/L Carbon Dioxide (22-32) mmol/L BUN (7-17) mg/dL Creatinine (0.52-1.04) mg/dL Estimated GFR (>60) mL/min BUN/Creatinine Ratio (6-22) Glucose (80-110) mg/dL Calcium (8.4-10.2) mg/dL Magnesium (1.6-2.3) mg/dL Total Bilirubin (0.2-1.3) mg/dL AST (14-36) IU/L ALT (<35) IU/L Alkaline Phosphatase (38-126) U/L Total Creatine Kinase (30-135) U/L CK-MB (CK-2) CK-MB (CK-2) Rel Index Troponin I < 0.012 (0.01-0.034) ng/mL Total Protein (6.3-8.2) g/dL Albumin (3.5-5.0) g/dL Globulin (1.7-4.1) g/dL Albumin/Globulin Ratio (1.0-2.8) Lipase (23-300) U/L Urine RBC 5-10/hpf H (0-5/HPF) Urine WBC 5-10/hpf H (0-5/HPF) Ur Squamous Epith Cells 5-10 /hpf H (0-5/HPF) Urine Bacteria Few (2-10) H (None) Ur Culture Indicated? Culture not indicate SARS-CoV-2 (PCR) Negative (Negative) Urine Dip Bedside Urine Glucose Negative Bedside Urine Bilirubin - Negative Bedside Urine Ketone - Negative Urine Specific [place] 1.020 Bedside Urine Occult Blood - Negative Bedside Urine pH 5.5 Bedside Urine Protein - Negative Bedside Urine Urobilinogen - Negative Bedside Urine Nitrite - Negative Bedside Urine Leukocytes + 70 Esterase Imaging Data Chest x-ray: Radiologist's Impression: [place] [address] XRay Report Signed Patient: Joan Drummond MR#: [id number] : 1960 Acct:[id number] Age/Sex: 61 / F Date of Service: 11/19/21 Loc: Accession Number: [id number] ?? Procedure: XR chest 1V Ordering Provider: Michell Jackson D.O. PROCEDURE:? XR CHEST 1V ? INDICATIONS:? chest pain ? TECHNIQUE:? One view of the chest was acquired.? ? COMPARISON:? None. ? FINDINGS:? ? Surgical changes and devices:? None.? ? Lungs and pleura:? Lungs are clear.? No pleural effusions or pneumothorax.? ? Mediastinum:? Mediastinal contours appear normal.? Heart size is normal.? ? Bones and chest wall:? No suspicious bony lesions.? Overlying soft tissues appear unremarkable.? ? IMPRESSION:? No acute cardiopulmonary disease process. ? ? Dictated by: Lucero Foley MD, PhD on 11/19/2021 at 9:34 ? ? Approved by: Lucero Foley MD, PhD on 11/19/2021 at 9:45?? CT scan - chest: Radiologist's Impression: [address] [address] [address] Scan Report Signed Patient: Joan Drummond MR#: [id number] : 1960 Acct:[id number] Age/Sex: 61 / F Date of Service: 11/19/21 Loc: ED Accession Number: [id number] ?? Procedure: CT angio chest PE protocol Ordering Provider: Michell Jackson D.O. PROCEDURE:? CT ANGIO CHEST PE PROTOCOL ? INDICATIONS:? chest pain, sob, on esterogen. ? TECHNIQUE:? After the administration of intravenous contrast, 2 mm thick sections acquired from the pulmonary apices to the posterior costophrenic angles.? 3-dimensional maximum intensity projection (MIP) coronal and sagittal reformats were then acquired through the thorax.? For radiation dose reduction, the following was used:? automated exposure control, adjustment of mA and/or kV according to patient size.? ? COMPARISON:? [facility], CT, PE STUDY (CTA CHEST), 06/26/2017, 17:07.? [facility], CR, XR CHEST 1V, 11/19/2021, 9:01. ? FINDINGS:? Image quality:? Excellent.? ? Pulmonary arteries:? Pulmonary arteries are normal in size, and demonstrate no intraluminal filling defects to suggest central pulmonary embolism.? ? Lungs and pleura:? Linear subsegmental scarring or atelectasis is seen in both lungs.? No acute consolidation.? No pleural effusions or pneumothorax.? Central and peripheral airways are patent.? ? Mediastinum:? Heart size is mildly enlarged, without pericardial effusion.? No mediastinal or hilar adenopathy.? Thoracic aorta is normal in caliber and enhancement.? Esophagus is normal in caliber, without hiatal hernia.? ? Bones and chest wall:? No suspicious bony lesions.? Ribs and thoracic spine appear intact throughout.? Thyroid is unremarkable.? No axillary or supraclavicular adenopathy.? ? Abdomen:? Visualized upper abdominal solid organs appear normal in the early arterial phase of enhancement.? ? IMPRESSION:? 1. No acute pulmonary embolism.? No acute abnormality is seen in the chest. 2. Mild cardiomegaly.? ? ? Dictated by: Johnathon Castro M.D. on 11/19/2021 at 12:32 ? ? Approved by: Johnathon Castro M.D. on 11/19/2021 at 12:42?? ECG Data Attestation: I personally reviewed and interpreted this ECG as follows: Prior ECG tracings: available for review Interpretation: EKG 1 sinus bradycardia first-degree AV block, rate of 47 AK 218 QRS 88 QTC 430. Patient does not have any other acute EKG changes appreciated. Patient has prior from 01/13/2017 with no acute changes. EKG 2 shows sinus bradycardia first-degree AV block rate of 48 AK 210, QRS 86 and QTC 432. Patient prior EKG has AK interval of 192 from 2017. No acute changes ST segments for today or from prior. MDM Narrative Medical decision making narrative: This is a 61-year-old female comes in complaint of chest pain with typical symptoms with shortness of breath radiation to the jaw and back. Patient took a sublingual nitro which resolved. She has had stress testing over year and half ago which was recommended to consider repeat as it was nonspecific. Patient's initial EKG showed AV block and bradycardia but no acute ST changes no noted on repeat initial troponin and lab work is otherwise negative. Repeat troponin and D-dimer show negative troponin, D-dimer elevated, CT PE shows some cardiomegaly but no other acute changes or causes of her symptoms. Patient was offered observation and stress testing, hospitalist noted she had repeat stress testing in June which was negative. At this time they would defer hospitalization here, spoke with cardiology who recommends repeat stress testing. We discussed she is currently on her aspirin, statin but is not on amlodipine she is on naldolol migraines. Patient is not felt to necessitate transfer but discussed she does seem high risk based on her recent episode of symptoms. Discussed recommendations from Cardiology and Dr. Reyes kindly accepts with current plan from Cardiology. We did discuss trying to transfer the patient to some placement in house Cardiology but there is no bed available regionally at this time and would likely take several days with so far negative EKGs and troponins and no active chest pain. Discharge Plan Departure Patient Disposition: Admitted as Observation Clinical Impression: Chest pain Admit Date/Time: 11/19/21 14:35 Admit Provider: Armando Reyes
[2021-11-19 11:40] LABS: Troponin I < 0.012 ng/mL (0.01-0.034)
[2021-11-19 11:41] LABS: D Dimer 402 ng/mL (<230)
--- NOTE | 2021-11-19 11:58 | DI.CT.S_ITS ---
PROCEDURE: CT ANGIO CHEST PE PROTOCOL INDICATIONS: chest pain, sob, on esterogen. TECHNIQUE: After the administration of intravenous contrast, 2 mm thick sections acquired from the pulmonary apices to the posterior costophrenic angles. 3-dimensional maximum intensity projection (MIP) coronal and sagittal reformats were then acquired through the thorax. For radiation dose reduction, the following was used: automated exposure control, adjustment of mA and/or kV according to patient size. COMPARISON: [facility], CT, PE STUDY (CTA CHEST), 06/26/2017, 17:07. [facility], CR, XR CHEST 1V, 11/19/2021, 9:01. FINDINGS: Image quality: Excellent. Pulmonary arteries: Pulmonary arteries are normal in size, and demonstrate no intraluminal filling defects to suggest central pulmonary embolism. Lungs and pleura: Linear subsegmental scarring or atelectasis is seen in both lungs. No acute consolidation. No pleural effusions or pneumothorax. Central and peripheral airways are patent. Mediastinum: Heart size is mildly enlarged, without pericardial effusion. No mediastinal or hilar adenopathy. Thoracic aorta is normal in caliber and enhancement. Esophagus is normal in caliber, without hiatal hernia. Bones and chest wall: No suspicious bony lesions. Ribs and thoracic spine appear intact throughout. Thyroid is unremarkable. No axillary or supraclavicular adenopathy. Abdomen: Visualized upper abdominal solid organs appear normal in the early arterial phase of enhancement. IMPRESSION: 1. No acute pulmonary embolism. No acute abnormality is seen in the chest. 2. Mild cardiomegaly. Dictated by: Johnathon Castro M.D. on 11/19/2021 at 12:32 Approved by: Johnathon Castro M.D. on 11/19/2021 at 12:42
[2021-11-19 12:03] LABS: COVID19 -Nasal RAPID Negative (Negative)
[2021-11-19 14:38] LABS: Bacteria Urine Few (2-10); RBC Urine 5-10/HPF (0-5/HPF); Squamous Epithelial Cell Urine 5-10 /HPF (0-5/HPF); WBC Urine 5-10/HPF (0-5/HPF)
--- NOTE | 2021-11-19 15:41 | PC.NURSE ---
Pt sent her wallet and her rings (that were in specimen cup) home with her .
--- NOTE | 2021-11-19 16:43 | P.HP_ITS ---
History of Present Illness History of Present Illness Date Patient Seen: 11/19/21 Chief complaint: chest pains earlier Narrative: This is a 61-year-old female with a past medical history hypertension, hyperlipidemia, obesity, [place], insomnia who presented to the ER with chest pain 10/10, substernal, pressure like radiation into her neck and back. She states this started at 6:10 a.m. this morning suddenly, where she felt severe chest pressure that radiated into her neck and back. It was associated with some mild confusion but she thinks this was due to the pain. There was someone with her and she did not have any slurred speech or unilateral weakness. She did note some visual changes but these resolved. This lasted for about 30 minutes before she realized that she had some nitroglycerin her purse. This helped her pain but did not fully alleviated so she came to the emergency room. He received another dose of nitroglycerin in the emergency room with improvement. She lelo es any recent fevers, chills, cough, nausea, vomiting, abdominal pain, or diarrhea. She does report right leg pain with ambulation that lasts for anywhere between 3-10 minutes that improves with rest. She has not had any evaluation for claudication as an outpatient that she is aware of. She has c hronic dyspnea on exertion that is unchanged recently, but the patient is unable to go up a flight of stairs without shortness of breath, struggles with inclines, and cannot walk flat for more than may be 50 ft without getting short of breath. In the emergency room, the patient's vital signs were unremarkable other than a sinus bradycardia. EKG showed no evidence of acute ischemia. Initial labo ratory evaluation reveal an unremarkable CBC, D-dimer was mildly elevated at 402, though given the patient's history CT angiogram was performed which did not show any evidence of acute dissection, pulmonary embolus, or acute pulmonary pathologies. Chemistry panel was unremarkable, and troponins were negative x2. Urinalysis was contaminated with squamous cells, but the patient denies any urinary symptoms. COVID-19 testing was negative. The patient had recent stress testing in June of 2021 which was deemed low risk at that time. The ER provider reviewed the case with Cardiology, and given her concerning story she was recommended for repeat stress testing and echocardiogram. She was admitted for further management to the hospitalist service. Patient History Medical History Actinic keratosis of right side of forehead Acute pain of left shoulder Bilateral carpal tunnel syndrome Bilateral hand numbness Bilateral lower extremity edema BMI 38.0-38.9,adult Cervical somatic dysfunction Chronic diarrhea Cranial somatic dysfunction Greater trochanteric bursitis of left hip History of exertional chest pain Hot flashes Hyperlipidemia Iliotibial band syndrome of both sides Insomnia Left shoulder strain Lumbar region somatic dysfunction Migraines (Unknown) Neck stiffness Neurogenic thoracic outlet syndrome of both brachial plexuses Nocturnal hypoxia (Unknown) Nonsustained paroxysmal supraventricular tachycardia Osteopenia (04/2016) Palpitations with regular cardiac rhythm Pelvic somatic dysfunction Postmenopausal Prinzmetal angina Right knee pain Rosacea Seborrheic keratoses Segmental and somatic dysfunction of abdomen and other regions Segmental and somatic dysfunction of lumbar region Segmental and somatic dysfunction of rib cage Segmental and somatic dysfunction of sacral region Segmental and somatic dysfunction of upper extremity Strain of gluteus medius of right lower extremity Superficial laceration Thoracic region somatic dysfunction Thoracic region somatic dysfunction Vasomotor flushing Surgical History History of appendectomy History of loop electrical excision procedure (LEEP) S/P ACL reconstruction (1987) Status post cholecystectomy Family & Social History Family History Brother Age: 67 Diabetes mellitus Mother Smoker Social History: household members spouse Prior Living Arrangements House Safety & Behavioral: Feels Safe in Current Yes Environment Been Physically Hurt or No Threatened By a Person Tobacco & Substance use: Smoking Status Never smoker alcohol intake current alcohol intake frequency 0-2 drinks per day Substance Use Type does not use Meds Home Medications and Allergies Home Medications Medication Instructions Recorded Confirmed Type magnesium oxide 400 mg PO BID 09/01/18 02/17/21 History albuterol sulfate 90 mcg/actuation 2 puff inhalation Q4-6H PRN 02/03/19 02/17/21 Rx aerosol inhaler shortness of breath or wheezing #18 grams melatonin 10 mg capsule 25 mg PO BEDTIME 06/11/19 02/17/21 History terbinafine HCl 250 mg tablet 250 mg PO DAILY 12/30/19 02/17/21 History Progesterone 75mg 75 mg PO .HS #90 caplets 01/31/20 02/17/21 Rx nitroglycerin 0.4 mg sublingual 0.4 mg sublingual Q5M PRN chest 02/04/20 02/17/21 Rx tablet (Nitrostat) pain #10 tabs nadolol 40 mg tablet See Rx Instructions .Route 02/02/21 02/17/21 Rx .COMPLEX #90 tabs amlodipine 5 mg tablet See Rx Instructions .Route 05/01/21 Rx .COMPLEX #90 tabs furosemide 20 mg tablet See Rx Instructions .Route 09/03/21 Rx .COMPLEX #120 tabs trazodone 50 mg tablet See Rx Instructions .Route 11/08/21 Rx .COMPLEX #180 tabs Allergies Allergy/AdvReac Type Severity Reaction Status Date / Time nickel [NICKEL] Allergy Severe SEVERE PAIN Verified 11/19/21 08:53 amoxicillin [AMOXICILLIN] Allergy Intermediate HIVES Verified 11/19/21 08:53 FROM HEAD TO TOE AND EVERY IN BETWEEN bupivacaine [From MARCAINE] Allergy Intermediate HIVES Verified 11/19/21 08:53 FROM HEAD TO TOE AND EVERYWHERE IN BETWEEN neomycin [NEOMYCIN] Allergy Intermediate HIVES Verified 11/19/21 08:53 FROM HEAD TO TOE AND EVERYWHERE IN BETWEEN hydroxyzine [HYDROXYZINE] AdvReac Intermediate dystonia Verified 11/19/21 08:53 Review of Systems Review of Systems Narrative: All other systems reviewed with the patient and are negative unless otherwise stated. Exam Vital Signs (past 8 hours): - 11/19/21 08:44 11/19/21 08:50 11/19/21 09:00 Temperature 97.3 F L Pulse Rate 48 L 48 L Respiratory Rate 22 26 H Blood Pressure 117/92 H 113/59 L Pulse Oximetry Oxygen Flow Rate 11/19/21 09:00 11/19/21 09:30 11/19/21 09:31 Temperature Pulse Rate 49 L 52 L Respiratory Rate 25 H 23 Blood Pressure 110/56 L Pulse Oximetry 98 97 Oxygen Flow Rate 11/19/21 09:31 11/19/21 10:08 11/19/21 10:00 Temperature Pulse Rate 50 L 51 L Respiratory Rate 23 Blood Pressure 110/56 L 110/56 L Pulse Oximetry 97 Oxygen Flow Rate 11/19/21 10:00 11/19/21 10:30 11/19/21 10:30 Temperature Pulse Rate 49 L 51 L Respiratory Rate 24 22 Blood Pressure 108/58 L Pulse Oximetry 96 95 Oxygen Flow Rate 11/19/21 11:00 11/19/21 11:00 11/19/21 11:30 Temperature Pulse Rate 52 L Respiratory Rate 22 Blood Pressure 106/56 L 112/58 L Pulse Oximetry 95 Oxygen Flow Rate 11/19/21 11:30 11/19/21 12:00 11/19/21 12:24 Temperature Pulse Rate 50 L 52 L Respiratory Rate 27 H 32 H Blood Pressure 145/63 H Pulse Oximetry 95 96 Oxygen Flow Rate 11/19/21 12:24 11/19/21 12:30 11/19/21 13:00 Temperature Pulse Rate 53 L 52 L 50 L Respiratory Rate 30 H 27 H 26 H Blood Pressure Pulse Oximetry 96 95 97 Oxygen Flow Rate 11/19/21 13:30 11/19/21 14:00 11/19/21 14:15 Temperature Pulse Rate 50 L 53 L Respiratory Rate 23 28 H Blood Pressure 125/64 Pulse Oximetry 95 98 Oxygen Flow Rate 11/19/21 14:15 11/19/21 14:30 11/19/21 14:30 Temperature Pulse Rate 49 L 50 L Respiratory Rate 24 24 Blood Pressure 121/60 Pulse Oximetry 95 96 Oxygen Flow Rate 11/19/21 15:00 11/19/21 15:00 11/19/21 15:30 Temperature 97.3 F L Pulse Rate 49 L 49 L Respiratory Rate 22 17 Blood Pressure 120/58 L 135/70 Pulse Oximetry 95 99 Oxygen Flow Rate 0 Oxygen Flow Rate 0 Narrative Exam Narrative: General:? Patient is well developed and well nourished, in no distress at this time. HEENT:? Normocephalic, atraumatic, extraocular muscles intact, oral pharynx is clear and mucous membranes are moist. Neck: supple and symmetric, trachea is midline, no cervical adenopathy. Negative for JVD Chest:? Normal AP diameter and contour without kyphoscoliosis, no tachypnea, equal chest rise bilaterally. Lungs:? CTA b/l no wheezing rhonchi or rales. Cardio:?RRR no m/r/g. Abdomen: S NT ND. No CVA tenderness. Musculoskeletal:? Muscle strength and tone are equal within normal limits, no deformity. Extremities: No edema or joint effusions. No cyanosis or clubbing. Skin:? Pale,? Warm to touch,dry and intact without rashes, ulcerations or petechiae.? Neuro:? Alert and orientated x3,? sensation to touch intact in all extremities, no gross deficits noted of cranial nerves. Psych:? Patient has a well-kept appearance, appropriate affect, mental status attitude thought context and judgment are appropriate for age. Objective ECG Impression: Sinus bradycardia with 1st degree AV block, no evidence of acute ischemia as interpreted by me Labs Result Diagrams: 11/19/21 09:00 11/19/21 09:00 Labs: Laboratory Results - last 24 hr 11/19/21 11/19/21 11/19/21 09:00 09:00 09:00 WBC 7.2 RBC 4.60 Hgb 14.7 Hct 41.7 MCV 90.6 MCH 31.8 MCHC 35.2 RDW 13.0 Plt Count 187 Neut % (Auto) 73.0 Lymph % (Auto) 17.1 L Jennings % (Auto) 7.9 Eos % (Auto) 1.1 L Baso % (Auto) 0.9 Neut # (Auto) 5300 Lymph # (Auto) 1200 Jennings # (Auto) 600 Eos # (Auto) 100 Baso # (Auto) 100 D-Dimer 402 H Sodium 141 Potassium 3.9 Chloride 103 Carbon Dioxide 32 BUN 22 H Creatinine 0.94 Estimated GFR > 60 BUN/Creatinine Ratio 23.4 H Glucose 109 Calcium 9.1 Magnesium 1.9 Total Bilirubin 0.4 AST 34 ALT 30 Alkaline Phosphatase 88 Total Creatine Kinase 32 CK-MB (CK-2) TNP CK-MB (CK-2) Rel Index TNP Troponin I < 0.012 Total Protein 7.8 Albumin 4.5 Globulin 3.3 Albumin/Globulin Ratio 1.4 Lipase 111 Urine RBC Urine WBC Ur Squamous Epith Cells Urine Bacteria Ur Culture Indicated? SARS-CoV-2 (PCR) 11/19/21 11/19/21 11/19/21 11:11 11:43 14:12 WBC RBC Hgb Hct MCV MCH MCHC RDW Plt Count Neut % (Auto) Lymph % (Auto) Jennings % (Auto) Eos % (Auto) Baso % (Auto) Neut # (Auto) Lymph # (Auto) Jennings # (Auto) Eos # (Auto) Baso # (Auto) D-Dimer Sodium Potassium Chloride Carbon Dioxide BUN Creatinine Estimated GFR BUN/Creatinine Ratio Glucose Calcium Magnesium Total Bilirubin AST ALT Alkaline Phosphatase Total Creatine Kinase CK-MB (CK-2) CK-MB (CK-2) Rel Index Troponin I < 0.012 Total Protein Albumin Globulin Albumin/Globulin Ratio Lipase Urine RBC 5-10/hpf H Urine WBC 5-10/hpf H Ur Squamous Epith Cells 5-10 /hpf H Urine Bacteria Few (2-10) H Ur Culture Indicated? Culture not indicate SARS-CoV-2 (PCR) Negative Assessment & Plan Assessment & Plan narrative: 1. Chest pain - concerning for possible ACS, will continue to follow troponins. - stress testing recommended by cardiology. Negative stress 06/2021. Will obtain echocardiogram as well. - continue telemetry. - start asa and statin - TSH, A1c, lipids for risk stratification - hold beta wally prior to stress testing. 2. Claudication, possible PAD - check ARINA, would recommmend follow up with PCP for further management. - depending on results consider cilostazol or referral to vascular surgery. 3. HTN - continue home medications 4. Insomnia - can continue home trazodone. Code: Full, surrogate decision maker is her . DVT: low risk patient, ambulatory will hold chemical prophylaxis. Dispo: observation admission, probable discharge home tomorrow if stress testing negative. I have utilized all available immediate resources to obtain, update, or review the patient's current medications. Time Spent With Patient Critical Care time: I spent a total of [] minutes of critical care time on this patient's care today; this time is exclusive of procedural time. Quality VTE Deep Vein Thrombosis/Pulmonary Embolism Present on Admission: No MIPS - Admit I confirm the patient?s Advance Care Plan is present, Code status is documented, Surrogate decision maker is in patient?s record [If Yes, STOP here]: Yes
--- NOTE | 2021-11-19 17:14 | PC.NURSE ---
Pt arrived to unit at approx 1530 from ED. A&O x3, Independant in room. Pt is in no distress and denies any pain. She is resting comfortably. TELE shows bradycardia. SPO2 96% on RA. Pt is NPO at Midnight as stress test tomorrow morning, no caffeine or chocolate. Her spouse is bringing in her CPAP for this evening. Heart Healthy Diet. Elevated d-dimer at 402, pt advised physician of intermittent claudication in right LE, Arterial duplex study of right leg will be ordered.
[2021-11-19 21:02] LABS: Troponin I < 0.012 ng/mL (0.01-0.034)
[2021-11-19] MEDS: ATORVASTATIN 20 MG TABLET 40 MG PO (21:04)
[2021-11-19] MEDS: MELATONIN 3 MG TABLET 12 MG PO (22:46)
[2021-11-19] MEDS: TRAZODONE 100 MG TABLET PO (22:46)
[2021-11-20] VITALS (9 sets, daily range): BP systolic 109–130; BP diastolic 53–62; PULSE 54–61; RESP 16–18; TEMP 36.1–36.6; O2SAT 94–98
[2021-11-20 06:37] LABS: Add Manual Diff / Slide Review NO; Basophils Absolute Auto 0 /uL (0-100); Basophils Percent Auto 0.6 % (0-2); Eosinophils Absolute Auto 100 /uL (0-450); Eosinophils Percent Auto 1.8 % (2-4); Hemoglobin 14.3 g/dL (12.0-16.0); Lymphocytes Absolute Auto 1000 /uL (1100-4500); Lymphocytes Percent Auto 20.5 % (25-40); Mean Corpuscular Hemoglobin 31.5 PG (26-34); Monocytes Absolute Auto 400 /uL (0-900); Monocytes Percent Auto 8.8 % (3-14); Neutrophils Absolute Auto 3300 /uL (1500-7000); Neutrophils Percent Auto 68.3 % (50-75); Platelet Count 169 X10^3/uL (150-400); Red Blood Cell Count 4.55 X10^6/uL (4.0-5.2); Red Cell Distribution Width 12.7 % (11.6-14.8); White Blood Cell Count 4.8 X10^3/uL (4.5-11.0)
[2021-11-20 06:39] LABS: BUN Creatinine Ratio 27.1 (6-22); Blood Urea Nitrogen 16 mg/dL (7-17); Carbon Dioxide 26 mmol/L (22-32); Chloride 105 mmol/L (98-107); Estimated Glomerular Filt Rate > 60 mL/min (>60); Glucose 126 mg/dL (80-110); HEMOLYSIS < 15 (0-50); Magnesium 1.9 mg/dL (1.6-2.3); Potassium 4.1 mmol/L (3.4-5.1); Sodium 139 mmol/L (137-145)
[2021-11-20 06:48] LABS: Hemoglobin A1C% w Est Avg Glu 5.7 % (4.0-6.0)
[2021-11-20 07:06] LABS: Cholesterol 172 mg/dL (140-199); HDL Cholesterol 51 mg/dL (40-60); LDL Cholesterol Calculated 87 mg/dL (<100); Triglycerides 172 mg/dL (35-150)
[2021-11-20 07:09] LABS: TSH w/ Reflex to FT4 2.87 uIU/mL (0.47-4.68)
[2021-11-20] MEDS: ASPIRIN EC 81 MG TABLET PO (08:13)
--- NOTE | 2021-11-20 10:21 | CM.DANOTE ---
Initial Discharge Plan Assessment: Case received, EMR reviewed and met with patient. Introduced self and role. 61 year old female Admitted yesterday afternoon to care of hospitalist team. PCP: Dr Avelino Rhodes Payer: [facility] and self pay Patient admitted with chest pain and bradycardia. Stress test pending, LE doppler pending. Patient lives in her own home with supportive . Works for [employer]. P: When stable patient diesires to return home with her previous home arrangement. Spouse will transport. Stefanie Babin RN/BOZENAP Discharge Planning/Care Management Advanced directive, confirm from FAMILY Start: 11/19/21 16:36 Freq: Q24H Status: Active Protocol: Document 11/19/21 19:25 AGW (Rec: 11/19/21 19:50 AGW [id number]) Advance Directive, confirm on record Time 19:25 Person contacted spouse Copy received No CM Discharge Assessment Start: 11/20/21 10:19 Freq: Status: Active Protocol: Document 11/20/21 10:20 (Rec: 11/20/21 10:21 [id number]) Discharge Planning Assessment Assigned Parts Advisor Stefanie Babin RN/BOZENAP Advance Directives? No Advance Directives on File No History Provided By Patient Prior Living Arrangements House Household Members spouse Type of transporation used prior to Drives own vehicle admit Independent with ADL's Yes Is patient alert and oriented? Yes Caregiver for Another No Transportation Arrangement Spouse to transport home via private vehicle. Referrals Initiated None needed Whiteboard Updated in Patient Room with Yes name and ext. # of Parts Advisor Review Status In Process Next Review Type Continued Stay Review
--- NOTE | 2021-11-20 10:30 | DI.US.S_ITS ---
PROCEDURE: US ARTERIAL DUPLEX LE RT INDICATIONS: PAIN TECHNIQUE: Color and pulse Doppler interrogation was performed of the right lower extremity arterial system, with image documentation. COMPARISON: None. FINDINGS: Common femoral artery: 116 cm/sec, with triphasic flow. Deep femoral artery: 64 cm/sec, with triphasic flow. Proximal superficial femoral artery: 98 cm/sec, with triphasic flow. Mid superficial femoral artery: 81 cm/sec, with triphasic flow. Distal superficial femoral artery: 60 cm/sec, with triphasic flow. Popliteal artery: 70 cm/sec, with triphasic flow. Posterior tibial artery: 93 cm/sec, with biphasic flow. Anterior tibial artery/dorsalis pedis: 83 cm/sec, with biphasic flow. Batres-scale imaging description: No hemodynamically significant stenosis. IMPRESSION: No hemodynamically significant stenosis. Dictated by: Felicita Rosenbaum M.D. on 11/20/2021 at 12:16 Approved by: Felicita Rosenbaum M.D. on 11/20/2021 at 12:18
--- NOTE | 2021-11-20 17:52 | P.DS_ITS ---
History of Present Illness History of Present Illness Date Patient Seen: 11/20/21 Chief complaint: chest pains earlier Narrative: This is a 61-year-old female with a past medical history hypertension, hyperlipidemia, obesity, [place], insomnia who presented to the ER with chest pain 10/10, substernal, pressure like radiation into her neck and back. She states this started at 6:10 a.m. this morning suddenly, where she felt severe chest pressure that radiated into her neck and back. It was associated with some mild confusion but she thinks this was due to the pain. There was someone with her and she did not have any slurred speech or unilateral weakness. She did note some visual changes but these resolved. This lasted for about 30 minutes before she realized that she had some nitroglycerin her purse. This helped her pain but did not fully alleviated so she came to the emergency room. He received another dose of nitroglycerin in the emergency room with improvement. She lelo es any recent fevers, chills, cough, nausea, vomiting, abdominal pain, or diarrhea. She does report right leg pain with ambulation that lasts for anywhere between 3-10 minutes that improves with rest. She has not had any evaluation for claudication as an outpatient that she is aware of. She has c hronic dyspnea on exertion that is unchanged recently, but the patient is unable to go up a flight of stairs without shortness of breath, struggles with inclines, and cannot walk flat for more than may be 50 ft without getting short of breath. In the emergency room, the patient's vital signs were unremarkable other than a sinus bradycardia. EKG showed no evidence of acute ischemia. Initial labo ratory evaluation reveal an unremarkable CBC, D-dimer was mildly elevated at 402, though given the patient's history CT angiogram was performed which did not show any evidence of acute dissection, pulmonary embolus, or acute pulmonary pathologies. Chemistry panel was unremarkable, and troponins were negative x2. Urinalysis was contaminated with squamous cells, but the patient denies any urinary symptoms. COVID-19 testing was negative. The patient had recent stress testing in June of 2021 which was deemed low risk at that time. The ER provider reviewed the case with Cardiology, and given her concerning story she was recommended for repeat stress testing and echocardiogram. She was admitted for further management to the hospitalist service. Discharge Providers Provider Date of admission: 11/19/21 14:35 Discharge Date: 11/20/21 Primary care physician: Avelino Rhodes DO Discharge provider: Armando Reyes DO Summary Hospital Course Discharge Diagnosis: 1. Chest pain 2. Claudication, possible PAD 3. HTN 4. Insomnia 5. Obesity, BMI 37.6 6. Pre-diabetes, A1c 5.7% Hospital Course: Patient is a 61-year-old female that was admitted for further evaluation of chest pain/pressure. She had negative troponins and a reassuring EKG. Stress testing had been performed 5 months ago, but given her clinical story, and consultation with Cardiology in the emergency room, she was recommended for stress testing. She also related symptoms of unilateral claudication of her right leg. She had arterial duplex testing, as no ARINA is available at [facility], which was unremarkable. Stress testing was also performed and the stress portion was deemed a low risk study by Cardiology. Over the phone, the hostess cashier recommended initiation of a PPI given her symptoms. Given this low risk study, and negative troponins, the patient was discharged home. I do recommend medical management for possible mild coronary artery disease with an aspirin and a statin. Her A1c was also slightly elevated from prior and consistent with prediabetes, lifestyle changes are recommended at this time. The patient has a follow-up planned with her primary care provider next week for further discussion of her symptoms and for possible further evaluation. I would recommend that she also follow up with Cardiology as an outpatient if her symptoms continue despite initiation of the above medications. Other considerations as an outpatient would be a sleep study given her obesity Exam Vital Signs (past 8 hours): - 11/20/21 11:00 11/20/21 12:25 11/20/21 15:00 Temperature 97.7 F Pulse Rate 61 Respiratory Rate 16 Blood Pressure 127/58 L Pulse Oximetry 98 94 94 Oxygen Delivery Method Room Air Room Air 11/20/21 16:14 Temperature 96.9 F L Pulse Rate 57 L Respiratory Rate 16 Blood Pressure 130/62 Pulse Oximetry 98 Oxygen Delivery Method Oxygen Delivery Method Room Air Oxygen Flow Rate 0 Narrative Exam Narrative: General:? Patient is well developed and well nourished, in no distress at this time. HEENT:? Normocephalic, atraumatic, extraocular muscles intact, oral pharynx is clear and mucous membranes are moist. Neck: supple and symmetric, trachea is midline, no cervical adenopathy. Negative for JVD Chest:? Normal AP diameter and contour without kyphoscoliosis, no tachypnea, equal chest rise bilaterally. Lungs:? CTA b/l no wheezing rhonchi or rales. Cardio:?RRR no m/r/g. Abdomen: S NT ND. No CVA tenderness. Musculoskeletal:? Muscle strength and tone are equal within normal limits, no deformity. Extremities: No edema or joint effusions. No cyanosis or clubbing. Skin:? Pale,? Warm to touch,dry and intact without rashes, ulcerations or petechiae.? Neuro:? Alert and orientated x3,? sensation to touch intact in all extremities, no gross deficits noted of cranial nerves. Psych:? Patient has a well-kept appearance, appropriate affect, mental status attitude thought context and judgment are appropriate for age. Objective Labs Result Diagrams: 11/20/21 06:02 11/20/21 06:02 Labs: Laboratory Results - last 24 hr 11/19/21 11/20/21 11/20/21 20:07 06:02 06:02 WBC RBC Hgb Hct MCV MCH MCHC RDW Plt Count Neut % (Auto) Lymph % (Auto) Newton % (Auto) Eos % (Auto) Baso % (Auto) Neut # (Auto) Lymph # (Auto) Newton # (Auto) Eos # (Auto) Baso # (Auto) Sodium Potassium Chloride Carbon Dioxide BUN Creatinine Estimated GFR BUN/Creatinine Ratio Glucose Hemoglobin A1c 5.7 Calcium Magnesium Troponin I < 0.012 Triglycerides 172 H Cholesterol 172 LDL Cholesterol, Calc 87 HDL Cholesterol 51 TSH 11/20/21 11/20/21 11/20/21 06:02 06:02 06:02 WBC 4.8 RBC 4.55 Hgb 14.3 Hct 41.0 MCV 90.0 MCH 31.5 MCHC 35.0 RDW 12.7 Plt Count 169 Neut % (Auto) 68.3 Lymph % (Auto) 20.5 L Newton % (Auto) 8.8 Eos % (Auto) 1.8 L Baso % (Auto) 0.6 Neut # (Auto) 3300 Lymph # (Auto) 1000 L Newton # (Auto) 400 Eos # (Auto) 100 Baso # (Auto) 0 Sodium 139 Potassium 4.1 Chloride 105 Carbon Dioxide 26 BUN 16 Creatinine 0.59 Estimated GFR > 60 BUN/Creatinine Ratio 27.1 H Glucose 126 H Hemoglobin A1c Calcium 9.0 Magnesium 1.9 Troponin I Triglycerides Cholesterol LDL Cholesterol, Calc HDL Cholesterol TSH 2.87 [facility] Medical History Actinic keratosis of right side of forehead Acute pain of left shoulder Bilateral carpal tunnel syndrome Bilateral hand numbness Bilateral lower extremity edema BMI 38.0-38.9,adult Cervical somatic dysfunction Chronic diarrhea Cranial somatic dysfunction Greater trochanteric bursitis of left hip History of exertional chest pain Hot flashes Hyperlipidemia Iliotibial band syndrome of both sides Insomnia Left shoulder strain Lumbar region somatic dysfunction Migraines (Unknown) Neck stiffness Neurogenic thoracic outlet syndrome of both brachial plexuses Nocturnal hypoxia (Unknown) Nonsustained paroxysmal supraventricular tachycardia Osteopenia (04/2016) Palpitations with regular cardiac rhythm Pelvic somatic dysfunction Postmenopausal Prinzmetal angina Right knee pain Rosacea Seborrheic keratoses Segmental and somatic dysfunction of abdomen and other regions Segmental and somatic dysfunction of lumbar region Segmental and somatic dysfunction of rib cage Segmental and somatic dysfunction of sacral region Segmental and somatic dysfunction of upper extremity Strain of gluteus medius of right lower extremity Superficial laceration Thoracic region somatic dysfunction Thoracic region somatic dysfunction Vasomotor flushing Surgical History History of appendectomy History of loop electrical excision procedure (LEEP) S/P ACL reconstruction (1987) Status post cholecystectomy Family History Brother Age: 67 Diabetes mellitus Mother Smoker Social History household members: spouse Smoking Status: Never smoker second hand exposure: No alcohol intake: current substance use type: does not use Discharge Plan Discharge Plan Patient Disposition: Home Provider Discharge Comment: You were admitted to the hospital with chest pain. Your stress testing was reassuring. You also had arterial studies of your legs which were also normal. I recommend medical management of your symptoms currently with aspirin, statin. Cardiology recommended starting a PPI for possible reflux. Please follow up with Dr. Rhodes, if no improvement consider outpatient evaluation with hostess cashier. Discharge orders & Medications Prescriptions: New aspirin 81 mg Tablet,Delayed Release (Dr/Ec) 81 mg PO DAILY 30 Days Qty: 30 0RF pantoprazole 20 mg tablet,delayed release (DR/EC) 20 mg PO DAILY 14 Days Qty: 14 0RF atorvastatin 40 mg tablet 40 mg PO BEDTIME 30 Days Qty: 30 0RF Continued magnesium oxide 400 mg capsule 750 mg PO BEDTIME amlodipine 5 mg tablet See Rx Instructions .ROUTE .COMPLEX Qty: 90 0RF Dose Instruction: TAKE 1 TABLET BY MOUTH DAILY Rx Instructions: TAKE 1 TABLET BY MOUTH DAILY furosemide 20 mg tablet See Rx Instructions .ROUTE .COMPLEX Qty: 120 0RF Dose Instruction: TAKE 1 TABLET BY MOUTH BY MOUTH DAILY-- MAY TAKE ONE ADDITONAL TABLET NEEDED Rx Instructions: TAKE 1 TABLET BY MOUTH BY MOUTH DAILY-- MAY TAKE ONE ADDITONAL TABLET NEEDED trazodone 50 mg tablet See Rx Instructions .ROUTE .COMPLEX Qty: 180 3RF Dose Instruction: TAKE 1 TO 2 TABLETS BY MOUTH DAILY AT BEDTIME NEEDED FOR SLEEP Rx Instructions: TAKE 1 TO 2 TABLETS BY MOUTH DAILY AT BEDTIME NEEDED FOR SLEEP albuterol sulfate 90 mcg/actuation HFA aerosol inhaler 2 puff INHALATION Q4-6H PRN (Reason: shortness of breath or wheezing) Qty: 18 0RF Rx Instructions: Dispense with spacer terbinafine HCl 250 mg tablet 250 mg PO DAILY nitroglycerin [Nitrostat] 0.4 mg tablet, sublingual 0.4 mg SL Q5M PRN (Reason: chest pain) Qty: 10 4RF Rx Instructions: do not exceed 3 doses per episode nadolol 40 mg tablet 40 mg PO BEDTIME Progesterone 75mg capsule 75 mg PO .HS melatonin 10 mg capsule 25 mg PO BEDTIME Discontinued rosuvastatin 5 mg tablet 5 mg PO BEDTIME Follow up/Referrals: Avelino Rhodes DO [Primary Care Provider] - Diet/Activity/Treatments Diet: Diet as Tolerated Diet comment: As tolerated Activity: As tolerated Discharge Data Primary Care Provider: Avelino Rhodes Attending Provider: Armando Reyes VTE Deep Vein Thrombosis/Pulmonary Embolism Present on Admission: No
--- NOTE | 2021-11-20 18:14 | PC.NURSE ---
Pt discharged in stable condition via wheelchair with all belongings including CPAP machine at 1812. VSS, pt understood discharge instructions and to follow up with primary care physician and cardiology referral. Tele was stable with Sinus bradycardia. Pt agreed to return if chest pain symptoms return. New medications sent to [facility] in [place].
--- NOTE | 2021-11-20 18:56 | DI.NM.S_ITS ---
DATE OF SERVICE: PROCEDURE: Perfusion scan. INDICATION: Chest pain with underlying hypertension hyperlipidemia, obesity, and sleep apnea. RADIOPHARMACEUTICAL: 25.4 mCi technetium-99m Myoview IV was injected at stress. This is a stress test study only. CARDIAC STRESS: Initially, the patient walked on Jean protocol under the supervision of an attending staff. She walked on Jean protocol for 6 minutes and achieved 75 percent of target heart rate. Baseline blood pressure 122/72 mmHg. Maximum blood pressure 182/96 mmHg. As she could not keep up with treadmill and achieved only 75 percent of target heart rate, exercise stress test was discontinued. Intravenous Lexiscan was given as per protocol. During stress test, as well as during Lexiscan infusion, there were no convincing ischemic changes. Baseline rhythm was sinus. The patient developed chest tightness, on a scale of 1-10, four in intensity during exercise as well as during Lexiscan. No significant arrhythmias seen.-the patient achieved 7 METs of workload. Functional aerobic impairment positive 9 percent. RAW DATA: Breast shadow was seen. GATED STUDY: The stress left ventricular ejection fraction was 94 percent without any obvious wall motion abnormalities. Transient ischemic dilation ratio 1.05. Lung/heart ratio 0.28, which is within normal limits. MYOCARDIAL PERFUSION SCAN: The stress supine images revealed a small- to moderate-size, mildly decreased perfusion of mid to distal anterior wall and mid to distal anterior septum which got resolved during stress prone images, suggestive of breast tissue attenuation artifact. No convincing ischemia or infarction. The patient had an exercise perfusion study in June,; at that time also, she had similar perfusion defect. No convincing ischemia or infarction. CONCLUSION: I will call this study likely a normal myocardial perfusion study with evidence of breast tissue attenuation artifact which got resolved during the stress prone images. Breast shadow seen during raw images. Poor exercise tolerance. Mild chest discomfort during exercise and Lexiscan. However, no ischemic electrocardiographic changes. Preserved left ventricular function. As far as perfusion scan is concerned, this is a low-risk myocardial perfusion scan. Consider alternative etiology of chest pain like gastrointestinal etiologies. Joan Drummond - Rachel/SAPPHIRE doc#: [id number]/job#: [id number] dd: 11/20/2021 17:36:00 dt: 11/20/2021 18:34:00 DICTATING MD/COPIES TO: Ramona Judge MD COPIES MNE: MOISES;
== END 2021-11-20 18:15 | disposition home or self-care (01) ==
LOC: ED 14:23 → AC 14:35
PROVIDERS: Admitting Provider Internal Medicine; Emergency Provider Emergency Medicine; Family Provider Family Medicine; PCP Family Medicine; Referring Provider Emergency Medicine; Visit Provider Internal Medicine
DX: R07.9 Chest pain, unspecified (principal); I10 Essential (primary) hypertension; G47.00 Insomnia, unspecified; I73.9 Peripheral vascular disease, unspecified; E66.9 Obesity, unspecified; Z68.37 Body mass index [BMI] 37.0-37.9, adult; R73.03 Prediabetes; Z20.822 Contact with and (suspected) exposure to COVID-19
CPT/HCPCS: 36415; 71045; 71275; 78451; 80048; 80053; 80061; 81003; 81015; 82550; 83036; 83690; 83735; 84443; 84484; 85025; 85379; 87086; 87635; 93005; 93010; 93017; 93926; 94760; 99284; C9803; G0378; A9502; Q9967

== ENCOUNTER 2022-01-15 21:01 | Emergency (ER) | payer OTHER, SELFPAY ==
[2021-11-19 16:03] VITALS: BMI 37.5
[2022-01-15 21:51] VITALS: BP 140/80; PULSE 62; RESP 18; TEMP 36.6; O2SAT 97
--- NOTE | 2022-01-15 21:57 | DI.RAD.S_ITS ---
PROCEDURE: XR SHOULDER LT MIN 2V INDICATIONS: fell injuring shoulder TECHNIQUE: 3 views of the shoulder were acquired. COMPARISON: None. FINDINGS: Bones: No fractures or dislocations. There is mild acromioclavicular joint degeneration. No suspicious bony lesions. Visualized ribs appear intact. Soft tissues: No suspicious soft tissue calcifications. Multiple external punctate densities are demonstrated projecting over the left chest wall. IMPRESSION: 1. No fracture or dislocation. Dictated by: Simon Bro M.D. on 01/15/2022 at 23:51 Approved by: Simon Bro M.D. on 01/15/2022 at 23:54
--- NOTE | 2022-01-15 21:58 | DI.RAD.S_ITS ---
PROCEDURE: XR WRIST LT MIN 3V INDICATIONS: fall TECHNIQUE: 4 views of the wrist were acquired. COMPARISON: None. FINDINGS: Bones: No fractures or dislocations. No suspicious bony lesions. Scaphoid view: The scaphoid appears intact. Soft tissues: No suspicious soft tissue calcifications. IMPRESSION: 1. No fracture or dislocation. Dictated by: Simon Bro M.D. on 01/15/2022 at 23:49 Approved by: Simon Bro M.D. on 01/15/2022 at 23:51
--- NOTE | 2022-01-16 01:14 | ED_ITS ---
HPI - Extremity Injury (Upper) General Chief Complaint: Extremity Injury, Upper Stated Complaint: left shoulder and wrist injury s/p fall Time Seen by Provider: 01/16/22 01:04 Source: patient Mode of arrival: Ambulatory History of Present Illness HPI narrative: Patient here with . 6 hours ago she was trying to take pictures for family outside, she stumbled on some rocks and fell forward fell on outstretched hand on the left. Complains of left wrist and left shoulder pain. Denies any other injury. Has not taken any medication for pain. Ice pack given to patient. No skin injury Related Data Home Medications Medication Instructions Recorded Confirmed magnesium oxide 750 mg PO BEDTIME 09/01/18 11/20/21 melatonin 10 mg capsule 25 mg PO BEDTIME 06/11/19 11/20/21 terbinafine HCl 250 mg tablet 250 mg PO DAILY 12/30/19 11/20/21 Progesterone 75mg 75 mg PO .HS 11/20/21 11/20/21 Previous Rx's Medication Instructions Recorded albuterol sulfate 90 mcg/actuation 2 puff inhalation Q4-6H PRN 02/03/19 aerosol inhaler shortness of breath or wheezing #18 grams amlodipine 5 mg tablet See Rx Instructions .Route 05/01/21 .COMPLEX #90 tabs furosemide 20 mg tablet See Rx Instructions .Route 09/03/21 .COMPLEX #120 tabs trazodone 50 mg tablet See Rx Instructions .Route 11/08/21 .COMPLEX #180 tabs nitroglycerin 0.4 mg sublingual 0.4 mg sublingual Q5M PRN chest 11/30/21 tablet (Nitrostat) pain #10 tabs nadolol 40 mg tablet See Rx Instructions .Route 12/03/21 .COMPLEX #90 tabs Allergies Allergy/AdvReac Type Severity Reaction Status Date / Time nickel [NICKEL] Allergy Severe SEVERE PAIN Verified 11/19/21 08:53 amoxicillin [AMOXICILLIN] Allergy Intermediate HIVES Verified 11/19/21 08:53 FROM HEAD TO TOE AND EVERY IN BETWEEN bupivacaine [From MARCAINE] Allergy Intermediate HIVES Verified 11/19/21 08:53 FROM HEAD TO TOE AND EVERYWHERE IN BETWEEN neomycin [NEOMYCIN] Allergy Intermediate HIVES Verified 11/19/21 08:53 FROM HEAD TO TOE AND EVERYWHERE IN BETWEEN hydroxyzine [HYDROXYZINE] AdvReac Intermediate dystonia Verified 11/19/21 08:53 Review of Systems Review of Systems Narrative: GENERAL: Denies chills, fatigue, malaise, fever, sweats. HEENT: Denies sinus pain, ear pain, sore throat RESPIRATORY: Denies dyspnea, cough CARDIOVASCULAR: Denies chest pain, palpitations GASTROINTESTINAL: Denies nausea, vomiting, abdominal pain : Denies dysuria, frequency, hematuria MUSCULOSKELETAL: Positive for muscle or bony pain SKIN: Denies rash, skin lesions NEUROLOGIC: Denies weakness, numbness ROS Unobtainable: All systems reviewed & are unremarkable except as noted in HPI and below Patient History Medical History Actinic keratosis of right side of forehead Acute pain of left shoulder Bilateral carpal tunnel syndrome Bilateral hand numbness Bilateral lower extremity edema BMI 38.0-38.9,adult Body posture problem Cervical radiculopathy Cervical somatic dysfunction Chronic diarrhea Cranial somatic dysfunction Greater trochanteric bursitis of left hip History of exertional chest pain Hot flashes Hyperlipidemia Iliotibial band syndrome of both sides Insomnia Left shoulder strain Lumbar region somatic dysfunction Migraines (Unknown) Neck stiffness Neurogenic thoracic outlet syndrome of both brachial plexuses Nocturnal hypoxia (Unknown) Nonsustained paroxysmal supraventricular tachycardia Osteopenia (04/2016) Palpitations with regular cardiac rhythm Pelvic somatic dysfunction Postmenopausal Prinzmetal angina Right knee pain Rosacea Seborrheic keratoses Segmental and somatic dysfunction of abdomen and other regions Segmental and somatic dysfunction of lumbar region Segmental and somatic dysfunction of rib cage Segmental and somatic dysfunction of sacral region Segmental and somatic dysfunction of upper extremity Strain of gluteus medius of right lower extremity Superficial laceration Thoracic region somatic dysfunction Thoracic region somatic dysfunction Vasomotor flushing Surgical History History of appendectomy History of loop electrical excision procedure (LEEP) S/P ACL reconstruction (1987) Status post cholecystectomy Family History Brother Age: 67 Diabetes mellitus Mother Smoker Social History household members: spouse Smoking Status: Never smoker second hand exposure: No alcohol intake: current substance use type: does not use Smoking Status: Never smoker alcohol intake frequency: 0-2 drinks per day Substance Use Type: does not use Exam Narrative Exam Narrative: GENERAL: in no distress, not toxic not dyspneic HEAD: Normocephalic. EYES: Pupils equal round No scleral icterus. EXTREMITIES: No gross deformities. Left shoulder and wrist and hand exposed. No gross deformity of the left shoulder or wrist. Elbow is nontender. There is tenderness to the anterior shoulder. Able to abduct adduct forward flex of the shoulder. Pain with attempted raised hand above the head. Hand is warm soft and pink. Strong radial pulse with light touch intact to thumb and fingers. Able to make a pound keeper. Able to supinate pronate flex and extend and ulnar deviate and radial deviate with the wrist. No gross deformities of the wrist. No snuffbox tenderness. NEURO: AOx4. SKIN: Warm and dry PSYCH: Not anxious, is cooperative Initial Vital Signs Initial Vital Signs: Vital Signs Temperature 98 F 01/15/22 21:51 Pulse Rate 62 01/15/22 21:51 Respiratory Rate 18 01/15/22 21:51 Blood Pressure 140/80 01/15/22 21:51 Pulse Oximetry 97 01/15/22 21:51 Oxygen Delivery Method 01/15/22 21:51 Procedures Orthopedic Splinting/Casting Injury #1: Time of procedure: 01:19 Side: left Upper Extremity Injury Location: wrist Upper Extremity Immobilizer: wrist splint Post splinting neuro exam: no change Post splinting vascular exam: no change Placed by: Nursing Course Course Course Narrative: No new issues during course of stay Orders Ordered: ED Orders 01/15/22 21:57 XR shoulder LT min 2V Stat 01/15/22 21:58 XR wrist LT min 3V Stat Discontinued Medications Hydrocodone Bitart/Acetaminophen (Hydrocodone/Acet 5/325 Tablet) 2 tab PO NOW ONE Stop: 01/16/22 01:14 Last Admin: 01/16/22 01:20 Dose: 2 tab Documented By: THERNO Ondansetron HCl (Ondansetron 4 Mg Odt) 4 mg SL NOW ONE Stop: 01/16/22 01:14 Last Admin: 01/16/22 01:20 Dose: 4 mg Documented By: THERON Reevaluation(s) Reevaluation #1: Reviewed results with patient and . At this time could be a occult fracture however if not improving in 7-10 days may need repeat x-ray or MRI. They do understand on day 1 May not show x-ray evidence of fracture. They do agree with splinting and sling. Time: 01:22 Vital Signs Vital signs: Vital Signs - 8 hr 01/15/22 21:51 Temperature 98 F Pulse Rate 62 Respiratory Rate 18 Blood Pressure 140/80 Pulse Oximetry 97 Oxygen Delivery Method Room Air MDM - Extremity Injury (Upper) Differential Diagnosis Differential diagnosis: Likely sprain and strain of wrist, fracture of wrist, dislocation of shoulder and fracture of humerus Imaging Data Extremity x-ray #1: Radiologist's Impression: [address] [id number] XRay Report Signed Patient: Joan Drummond MR#: [id number] : 1960 Acct:[id number] Age/Sex: 61 / F Date of Service: 01/15/22 Loc: ED Accession Number: [id number] ?? Procedure: XR shoulder LT min 2V Ordering Provider: Jhonny Casarez MD PROCEDURE:? XR SHOULDER LT MIN 2V ? INDICATIONS:? fell injuring shoulder ? TECHNIQUE:? 3 views of the shoulder were acquired.? ? COMPARISON:? None. ? FINDINGS:? ? Bones:? No fractures or dislocations.? There is mild acromioclavicular joint degeneration.? No suspicious bony lesions.? Visualized ribs appear intact.? ? Soft tissues:? No suspicious soft tissue calcifications.? Multiple external punctate densities are demonstrated projecting over the left chest wall. ? IMPRESSION:? ? 1. No fracture or dislocation.? ? ? Dictated by: Simon Bro M.D. on 01/15/2022 at 23:51 ? ? Approved by: Simon Bro M.D. on 01/15/2022 at 23:54 ? Extremity x-ray #2: Radiologist's Impression: [address] [id number] XRay Report Signed Patient: Joan Drummond MR#: [id number] : 1960 Acct:[id number] Age/Sex: 61 / F Date of Service: 01/15/22 Loc: ED Accession Number: [id number] ?? Procedure: XR wrist LT min 3V Ordering Provider: Jhonny Casarez MD PROCEDURE:? XR WRIST LT MIN 3V ? INDICATIONS: fall ? TECHNIQUE:? 4 views of the wrist were acquired.? ? COMPARISON:? None. ? FINDINGS:? ? Bones:? No fractures or dislocations.? No suspicious bony lesions.? ? Scaphoid view:? The scaphoid appears intact. ? Soft tissues:? No suspicious soft tissue calcifications.? ? IMPRESSION:? ? 1. No fracture or dislocation.? ? ? Dictated by: Simon Bro M.D. on 01/15/2022 at 23:49 ? ? Approved by: Simon Bro M.D. on 01/15/2022 at 23:51 ? MDM Narrative Medical decision making narrative: Appropriate for discharge home. Exam and imaging otherwise reassuring. Could be occult fracture of the wrist or shoulder and return precautions reviewed with patient and . Tolerated splinting very well. Pain control at time of discharge. Referral for Orthopedics given. They desire discharge home. Discharge Plan Departure Patient Disposition: Home Clinical Impression: Left wrist sprain, Left shoulder strain Instructions: DI for Wrist Sprain, DI for Shoulder Sprain Activity Restrictions/Additional Instructions: Call provided orthopedic office tomorrow for office recheck in a week. You may need repeat x-ray or imaging or MRI if pain not improving 7 or 10 days. Use wrist splint and sling for comfort. No driving or operating machinery tonight. May continue tomorrow with Tylenol or ibuprofen for pain. Use provided ice pack 20 minutes at a time for pain or swelling. Return if worse if any questions or concerns Prescriptions: No Action magnesium oxide 400 mg capsule 750 mg PO BEDTIME amlodipine 5 mg tablet See Rx Instructions .ROUTE .COMPLEX Qty: 90 0RF Dose Instruction: TAKE 1 TABLET BY MOUTH DAILY Rx Instructions: TAKE 1 TABLET BY MOUTH DAILY furosemide 20 mg tablet See Rx Instructions .ROUTE .COMPLEX Qty: 120 0RF Dose Instruction: TAKE 1 TABLET BY MOUTH BY MOUTH DAILY-- MAY TAKE ONE ADDITONAL TABLET NEEDED Rx Instructions: TAKE 1 TABLET BY MOUTH BY MOUTH DAILY-- MAY TAKE ONE ADDITONAL TABLET NEEDED trazodone 50 mg tablet See Rx Instructions .ROUTE .COMPLEX Qty: 180 3RF Dose Instruction: TAKE 1 TO 2 TABLETS BY MOUTH DAILY AT BEDTIME NEEDED FOR SLEEP Rx Instructions: TAKE 1 TO 2 TABLETS BY MOUTH DAILY AT BEDTIME NEEDED FOR SLEEP nitroglycerin [Nitrostat] 0.4 mg tablet, sublingual 0.4 mg SL Q5M PRN (Reason: chest pain) Qty: 10 4RF Rx Instructions: do not exceed 3 doses per episode nadolol 40 mg tablet See Rx Instructions .ROUTE .COMPLEX Qty: 90 3RF Dose Instruction: TAKE 1 TABLET BY MOUTH DAILY Rx Instructions: TAKE 1 TABLET BY MOUTH DAILY albuterol sulfate 90 mcg/actuation HFA aerosol inhaler 2 puff INHALATION Q4-6H PRN (Reason: shortness of breath or wheezing) Qty: 18 0RF Rx Instructions: Dispense with spacer terbinafine HCl 250 mg tablet 250 mg PO DAILY Progesterone 75mg capsule 75 mg PO .HS melatonin 10 mg capsule 25 mg PO BEDTIME Referrals: Donnie Douglas MD [Physician] - Avelino Rhodes DO [Primary Care Provider] - Visit Report Forms: Patient Portal/API
[2022-01-16] MEDS: HYDROCODONE/ACET 5/325 TABLET 2 TAB PO (01:20)
[2022-01-16] MEDS: ONDANSETRON 4 MG ODT SL (01:20)
== END 2022-01-16 01:34 | disposition home or self-care (01) ==
PROVIDERS: Emergency Provider Emergency Medicine; Family Provider Family Medicine; PCP Family Medicine
DX: S63.502A Unspecified sprain of left wrist, initial encounter (principal); S46.912A Strain of unspecified muscle, fascia and tendon at shoulder and upper arm level, left arm, initial encounter; W19.XXXA Unspecified fall, initial encounter
CPT/HCPCS: 73030; 73110; 99283

== ENCOUNTER 2022-04-23 13:01 | Emergency (ER) | payer OTHER, SELFPAY ==
[2021-11-19 16:03] VITALS: BMI 37.5
[2022-04-23] VITALS (9 sets, daily range): BP systolic 121–146; BP diastolic 56–71; PULSE 49–56; RESP 15–21; TEMP 35.9–37.2; O2SAT 96–99; BMI 41.1
--- NOTE | 2022-04-23 14:47 | DI.RAD.S_ITS ---
PROCEDURE: XR CHEST 1V INDICATIONS: chest pain TECHNIQUE: One view of the chest was acquired. COMPARISON: [facility], CR, XR CHEST 1V, 11/19/2021, 9:01. FINDINGS: Surgical changes and devices: None. Lungs and pleura: Lungs are clear. No pleural effusions or pneumothorax. Mediastinum: Mediastinal contours appear normal. Heart size is normal. Bones and chest wall: No suspicious bony lesions. Overlying soft tissues appear unremarkable. Postsurgical changes involving the distal right clavicle are stable. IMPRESSION: No acute cardiopulmonary disease process. Dictated by: Lucero Foley MD, PhD on 04/23/2022 at 15:26 Approved by: Lucero Foley MD, PhD on 04/23/2022 at 15:26
[2022-04-23 14:59] LABS: Alanine Aminotransferase 38 IU/L (<35); Albumin 4.3 g/dL (3.5-5.0); Albumin Globulin Ratio 1.3 (1.0-2.8); Alkaline Phosphatase 94 U/L (38-126); Aspartate Aminotransferase 33 IU/L (14-36); BUN Creatinine Ratio 18.8 (6-22); Bilirubin Total 0.7 mg/dL (0.2-1.3); Blood Urea Nitrogen 13 mg/dL (7-17); Calcium 8.7 mg/dL (8.4-10.2); Carbon Dioxide 30 mmol/L (22-32); Chloride 100 mmol/L (98-107); Creatine Kinase 40 U/L (30-135); Estimated Glomerular Filt Rate > 60 mL/min (>60); Globulin 3.2 g/dL (1.7-4.1); Glucose 105 mg/dL (80-110); HEMOLYSIS < 15 (0-50); Lipase 111 U/L (23-300); Magnesium 2.4 mg/dL (1.6-2.3); Potassium 3.8 mmol/L (3.4-5.1); Sodium 137 mmol/L (137-145); Total Protein 7.5 g/dL (6.3-8.2)
[2022-04-23 15:01] LABS: Add Manual Diff / Slide Review NO; Basophils Absolute Auto 0 /uL (0-100); Basophils Percent Auto 0.4 % (0-2); Eosinophils Absolute Auto 100 /uL (0-450); Eosinophils Percent Auto 1.8 % (2-4); Hematocrit 43.2 % (36-46); Hemoglobin 14.5 g/dL (12.0-16.0); Lymphocytes Absolute Auto 1000 /uL (1100-4500); Lymphocytes Percent Auto 18.1 % (25-40); Mean Corpuscular HGB Conc 33.7 % (30-36); Mean Corpuscular Hemoglobin 30.8 PG (26-34); Mean Corpuscular Volume 91.4 fL (80-100); Monocytes Absolute Auto 500 /uL (0-900); Monocytes Percent Auto 8.4 % (3-14); Neutrophils Absolute Auto 4100 /uL (1500-7000); Neutrophils Percent Auto 71.3 % (50-75); Platelet Count 176 X10^3/uL (150-400); Red Blood Cell Count 4.72 X10^6/uL (4.0-5.2); Red Cell Distribution Width 13.1 % (11.6-14.8); White Blood Cell Count 5.8 X10^3/uL (4.5-11.0)
[2022-04-23 15:10] LABS: Troponin I < 0.012 ng/mL (0.01-0.034)
--- NOTE | 2022-04-23 18:19 | ED.CHESTPAIN ---
HPI - Chest Pain General Chief Complaint: Chest Pain Stated Complaint: chest pain 11:30am Time Seen by Provider: 04/23/22 18:11 History of Present Illness HPI narrative: Sara Medina is a 61-year-old woman with chest pain today. 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 She said it radiated to her neck and jaw and lasted about 30 minutes. About 15 minutes after the onset of the symptoms she took some nitroglycerin which dramatically improved the symptoms until they were resolved. She also had nausea and some breathlessness but no sweats. She does not have coronary disease as far she knows. In November of this year she had a negative myocardial perfusion test. She does not smoke cigarettes. Her older brother suddenly of apparent cardiac disease at 67 years old. She does not have hypertension or diabetes but she does take cholesterol medication. She has no other lung disease or cancer history or pulmonary embolism or DVT history. No recent URI, no cough or fever or congestion. Related Data Home Medications Medication Instructions Recorded Confirmed magnesium oxide 750 mg PO BEDTIME 09/01/18 03/10/22 melatonin 10 mg capsule 25 mg PO BEDTIME 06/11/19 03/10/22 terbinafine HCl 250 mg tablet 250 mg PO DAILY 12/30/19 03/10/22 Progesterone 75mg 75 mg PO .HS 11/20/21 03/10/22 Previous Rx's Medication Instructions Recorded albuterol sulfate 90 mcg/actuation 2 puff inhalation Q4-6H PRN 02/03/19 aerosol inhaler shortness of breath or wheezing #18 grams amlodipine 5 mg tablet See Rx Instructions .Route 05/01/21 .COMPLEX #90 tabs trazodone 50 mg tablet See Rx Instructions .Route 11/08/21 .COMPLEX #180 tabs nitroglycerin 0.4 mg sublingual 0.4 mg sublingual Q5M PRN chest 11/30/21 tablet (Nitrostat) pain #10 tabs nadolol 40 mg tablet See Rx Instructions .Route 12/03/21 .COMPLEX #90 tabs hydroxyzine HCl 10 mg tablet See Rx Instructions PO BEDTIME #60 02/05/22 tabs furosemide 20 mg tablet See Rx Instructions .Route 02/12/22 .COMPLEX #120 tabs tacrolimus 0.1 % topical ointment 1 applic topical DAILY #30 grams 03/10/22 triamcinolone acetonide 0.1 % 1 applic topical DAILY #80 grams 03/10/22 topical ointment gabapentin 100 mg capsule 300 mg PO TID #90 caps 04/05/22 Allergies Allergy/AdvReac Type Severity Reaction Status Date / Time nickel [NICKEL] Allergy Severe SEVERE PAIN Verified 03/10/22 09:11 amoxicillin [AMOXICILLIN] Allergy Intermediate HIVES Verified 03/10/22 09:11 FROM HEAD TO TOE AND EVERY IN BETWEEN bupivacaine [From MARCAINE] Allergy Intermediate HIVES Verified 03/10/22 09:11 FROM HEAD TO TOE AND EVERYWHERE IN BETWEEN neomycin [NEOMYCIN] Allergy Intermediate HIVES Verified 03/10/22 09:11 FROM HEAD TO TOE AND EVERYWHERE IN BETWEEN hydroxyzine [HYDROXYZINE] AdvReac Intermediate dystonia Verified 03/10/22 09:11 Review of Systems Review of Systems Narrative: Complete review of systems is negative other than as noted above. Patient History Medical History Actinic keratosis of right side of forehead Acute pain of left shoulder Bilateral carpal tunnel syndrome Bilateral hand numbness Bilateral lower extremity edema BMI 38.0-38.9,adult Body posture problem Cervical radiculopathy Cervical somatic dysfunction Chronic diarrhea Cranial somatic dysfunction Facial eczema Greater trochanteric bursitis of left hip History of exertional chest pain Hot flashes Hyperlipidemia Iliotibial band syndrome of both sides Insomnia Left shoulder strain Lumbar region somatic dysfunction Migraines (Unknown) Neck stiffness Neurogenic thoracic outlet syndrome of both brachial plexuses Nocturnal hypoxia (Unknown) Nonsustained paroxysmal supraventricular tachycardia Osteopenia (04/2016) Palpitations with regular cardiac rhythm Pelvic somatic dysfunction Postmenopausal Prinzmetal angina Right knee pain Rosacea Seborrheic keratoses Segmental and somatic dysfunction of abdomen and other regions Segmental and somatic dysfunction of lumbar region Segmental and somatic dysfunction of rib cage Segmental and somatic dysfunction of sacral region Segmental and somatic dysfunction of upper extremity Strain of gluteus medius of right lower extremity Superficial laceration Thoracic region somatic dysfunction Thoracic region somatic dysfunction Vasomotor flushing Surgical History History of appendectomy History of loop electrical excision procedure (LEEP) S/P ACL reconstruction (1987) Status post cholecystectomy Family History Brother Age: 68 Diabetes mellitus Mother Smoker Social History household members: spouse Smoking Status: Never smoker second hand exposure: No alcohol intake: current substance use type: does not use Smoking Status: Never smoker alcohol intake frequency: 0-2 drinks per day Substance Use Type: does not use Exam Narrative Exam Narrative: GENERAL: Alert, cooperative and in no distress. HEAD: Atraumatic. Normocephalic. EYES: Sclera are clear without icterus. Extraocular movements are full. ENT: No rhinorrhea. Oropharynx is moist. Mouth exam is benign. NECK: Supple. Full range of motion. CARDIOVASCULAR: Normal rate and rhythm without murmur gallop or rub. RESPIRATORY: Clear to auscultation. Breath sounds equal bilaterally. No wheezes, rales, or rhonchi. GASTROINTESTINAL: Abdomen soft, non-tender, nondistended. EXTREMITIES: Minimal edema, full range of motion. No obvious trauma. BACK: Normal inspection, no CVA tenderness. NEURO: Nonfocal examination, normal speech, normal gait. SKIN: No rash or erythema of visible areas PSYCH: Normally oriented. Normal range of affect. Appropriate behavior Initial Vital Signs Initial Vital Signs: Vital Signs Temperature 96.7 F L 04/23/22 13:12 Pulse Rate 50 L 04/23/22 13:12 Respiratory Rate 15 04/23/22 13:12 Blood Pressure 133/68 04/23/22 13:12 Pulse Oximetry 97 04/23/22 13:12 Oxygen Delivery Method 04/23/22 13:12 Scores HEART Score Heart Score history: Moderately Suspicious Heart Score EKG: Normal Heart Score Age: 45-64 years old Heart Score risk factors: > 3 risk factors or hx of atherosclerotic disease Heart Score troponin: < or = to normal limit Heart Score Total: 4 Course Orders Ordered: ED Orders 04/23/22 13:24 Complete Blood Count AUTO DIFF Stat Comprehensive Metabolic Panel Stat Lipase Stat Magnesium Stat Troponin & CK Cardiac Panel Stat 04/23/22 14:47 XR chest 1V Stat EKG-12 Lead Stat 04/23/22 18:29 Trop I [Troponin I] Stat Vital Signs Vital signs: Vital Signs - 8 hr 04/23/22 13:12 11/15/22 15:42 04/23/22 18:00 Temperature 96.7 F L 99.0 F Pulse Rate 50 L 53 L 52 L Respiratory Rate 15 21 Blood Pressure 133/68 128/64 Pulse Oximetry 97 99 96 Oxygen Delivery Method Room Air Room Air 04/23/22 18:15 04/23/22 18:15 04/23/22 18:30 Temperature Pulse Rate 56 L Respiratory Rate 21 Blood Pressure 146/66 H 135/71 Pulse Oximetry 97 Oxygen Delivery Method 04/23/22 18:30 04/23/22 18:45 04/23/22 18:45 Temperature Pulse Rate 52 L 49 L Respiratory Rate Blood Pressure 128/61 Pulse Oximetry 98 97 Oxygen Delivery Method MDM - Chest Pain Lab Data Result diagrams: 04/23/22 13:24 04/23/22 13:24 Labs: Lab Results 04/23/22 04/23/22 04/23/22 Range/Units 13:24 13:24 18:29 WBC 5.8 (4.5-11.0) X10^3/uL RBC 4.72 (4.0-5.2) X10^6/uL Hgb 14.5 (12.0-16.0) g/dL Hct 43.2 (36-46) % MCV 91.4 (80-100) fL MCH 30.8 (26-34) PG MCHC 33.7 (30-36) % RDW 13.1 (11.6-14.8) % Plt Count 176 (150-400) X10^3/uL Neut % (Auto) 71.3 (50-75) % Lymph % (Auto) 18.1 L (25-40) % Garvin % (Auto) 8.4 (3-14) % Eos % (Auto) 1.8 L (2-4) % Baso % (Auto) 0.4 (0-2) % Neut # (Auto) 4100 (2624-4863) /uL Lymph # (Auto) 1000 L (9757-5094) /uL Garvin # (Auto) 500 (0-900) /uL Eos # (Auto) 100 (0-450) /uL Baso # (Auto) 0 (0-100) /uL Sodium 137 (137-145) mmol/L Potassium 3.8 (3.4-5.1) mmol/L Chloride 100 (98-107) mmol/L Carbon Dioxide 30 (22-32) mmol/L BUN 13 (7-17) mg/dL Creatinine 0.69 (0.52-1.04) mg/dL Estimated GFR > 60 (>60) mL/min BUN/Creatinine Ratio 18.8 (6-22) Glucose 105 (80-110) mg/dL Calcium 8.7 (8.4-10.2) mg/dL Magnesium 2.4 H (1.6-2.3) mg/dL Total Bilirubin 0.7 (0.2-1.3) mg/dL AST 33 (14-36) IU/L ALT 38 H (<35) IU/L Alkaline Phosphatase 94 (38-126) U/L Total Creatine Kinase 40 (30-135) U/L CK-MB (CK-2) TNP CK-MB (CK-2) Rel Index TNP Troponin I < 0.012 < 0.012 (0.01-0.034) ng/mL Total Protein 7.5 (6.3-8.2) g/dL Albumin 4.3 (3.5-5.0) g/dL Globulin 3.2 (1.7-4.1) g/dL Albumin/Globulin Ratio 1.3 (1.0-2.8) Lipase 111 (23-300) U/L Imaging Data Chest x-ray: Radiologist's Impression: IMPRESSION:? No acute cardiopulmonary disease process. ? ? Dictated by: Lucero Foley MD, PhD on 04/23/2022 at 15:26 ? ? Approved by: Lucero Foley MD, PhD on 04/23/2022 at 15:26 ? ECG Data Interpretation: ECG obtained at 1:09 p.m. reveals a sinus rhythm at a rate of 51. No acute ST or T-wave changes seen. QTC is 440. MDM Narrative Medical decision making narrative: Patient had complete resolution of her symptoms prior to arrival. She has had no recurrence since then. Will check a 2nd troponin but initial workup is completely reassuring. Heart score is 4. Shared decision-making with the patient regarding the risks of going home versus staying in the hospital for further evaluation is detailed. I told him that the risk of major cardiac event in the next 30 days is approximately 15%. Given the recent workup and recent similar symptoms with no specific or definitive coronary artery disease diagnosis made, they choose to go home understanding that there is some risk with doing so. They have arranged for outpatient follow-up with her hose inspector and patcher in the coming days. I do not believe this woman has pulmonary embolism, aortic dissection or acute coronary ischemia. Second troponin now is normal. Discharge Plan Departure Patient Disposition: Home Clinical Impression: Chest pain Activity Restrictions/Additional Instructions: No immediately dangerous cause for your chest pain is identified. However, I definitely think that follow-up with your hose inspector and patcher as warranted. There is some small chance that this does represent acute coronary syndrome and so if you develop any recurrent chest pain I strongly encouraged her to come back to the ER right away. We also talked about the possibility of hospitalization which you have declined and I believe is reasonable at this time. All the tests we have done to this point are reassuring though your symptoms are moderately concerning. Prescriptions: No Action magnesium oxide 400 mg capsule 750 mg PO BEDTIME triamcinolone acetonide 0.1 % ointment 1 applic topical DAILY Qty: 80 0RF Rx Instructions: Daily for 5 days and take a holiday for the weekend tacrolimus 0.1 % ointment 1 applic topical DAILY Qty: 30 0RF Rx Instructions: For around the eyes, use on week days for longer-term as needed amlodipine 5 mg tablet See Rx Instructions .ROUTE .COMPLEX Qty: 90 0RF Dose Instruction: TAKE 1 TABLET BY MOUTH DAILY Rx Instructions: TAKE 1 TABLET BY MOUTH DAILY trazodone 50 mg tablet See Rx Instructions .ROUTE .COMPLEX Qty: 180 3RF Dose Instruction: TAKE 1 TO 2 TABLETS BY MOUTH DAILY AT BEDTIME NEEDED FOR SLEEP Rx Instructions: TAKE 1 TO 2 TABLETS BY MOUTH DAILY AT BEDTIME NEEDED FOR SLEEP nitroglycerin [Nitrostat] 0.4 mg tablet, sublingual 0.4 mg SL Q5M PRN (Reason: chest pain) Qty: 10 4RF Rx Instructions: do not exceed 3 doses per episode nadolol 40 mg tablet See Rx Instructions .ROUTE .COMPLEX Qty: 90 3RF Dose Instruction: TAKE 1 TABLET BY MOUTH DAILY Rx Instructions: TAKE 1 TABLET BY MOUTH DAILY furosemide 20 mg tablet See Rx Instructions .ROUTE .COMPLEX Qty: 120 1RF Dose Instruction: TAKE 1 TABLET BY MOUTH BY MOUTH DAILY-- MAY TAKE ONE ADDITONAL TABLET NEEDED Rx Instructions: TAKE 1 TABLET BY MOUTH BY MOUTH DAILY-- MAY TAKE ONE ADDITONAL TABLET NEEDED gabapentin 100 mg capsule 300 mg PO TID Qty: 90 5RF Rx Instructions: Start with 100 mg daily and add another capsule every day up to the highest tolerated dose with maximum of 300 mg 3 times a day albuterol sulfate 90 mcg/actuation HFA aerosol inhaler 2 puff INHALATION Q4-6H PRN (Reason: shortness of breath or wheezing) Qty: 18 0RF Rx Instructions: Dispense with spacer terbinafine HCl 250 mg tablet 250 mg PO DAILY hydroxyzine HCl 10 mg tablet See Rx Instructions PO BEDTIME Qty: 60 1RF Rx Instructions: Take 1/2, 1, or 2 tablets as best tolerated orally at bedtime; Progesterone 75mg capsule 75 mg PO .HS melatonin 10 mg capsule 25 mg PO BEDTIME Referrals: Juan Rhodes DO [Primary Care Provider] -
[2022-04-23 19:11] LABS: Troponin I < 0.012 ng/mL (0.01-0.034)
== END 2022-04-23 19:48 | disposition home or self-care (01) ==
PROVIDERS: Emergency Medicine; Emergency Provider Family Medicine Addiction Medicine; Family Provider Family Medicine; PCP Family Medicine
DX: R07.9 Chest pain, unspecified (principal)
CPT/HCPCS: 36415; 71045; 80053; 82550; 83690; 83735; 84484; 85025; 93005; 99283; 99284

== ENCOUNTER → 2022-06-15 08:17 | Outpatient (CLI) | payer OTHER, SELFPAY ==
[2021-11-19 16:03] VITALS: BMI 37.5
--- NOTE | 2022-06-15 08:19 | DI.MG.S_ITS ---
BILATERAL DIGITAL SCREENING MAMMOGRAM 3D/2D WITH CAD: 06/15/2022 CLINICAL: Routine screening. Comparison is made to exams dated: 02/10/2021 mammogram, 06/29/2018 mammogram, and 01/31/2017 mammogram - [facility]. There are scattered areas of fibroglandular density in both breasts (category b / 25%-50% glandular tissue). Current study was also evaluated with a Computer Aided Detection (CAD) system. There is a biopsy clip in the right breast. No significant masses, calcifications, or other findings are seen in either breast. There has been no significant interval change. IMPRESSION: BENIGN There is no mammographic evidence of malignancy. A 1 year screening mammogram is recommended. Based on the Tyrer Cuzick model (a risk assessment model) the patient's lifetime risk is 6.4% and her 10 year risk is 2.7%. According to the ACR, ACS, and NCCN guidelines, an annual breast MRI exam along with mammogram is recommended if the patient's lifetime risk is 20% or greater. This exam was interpreted at Station ID: [id number]. NOTE: For mammograms, a report in lay terms will be sent to the patient. Approximately 15% of breast malignancies will not be visualized mammographically. In the management of a palpable breast mass, a negative mammogram must not discourage biopsy of a clinically suspicious lesion. Electronically Signed By: Benja paniagua/pro:06/17/2022 08:13:30 letter sent: Normal Exam ACR BI-RADS Category 2: Benign Finding(s) 3342F
== END ==
PROVIDERS: Family Provider Family Medicine; PCP Family Medicine; Referring Provider Family Medicine; Visit Provider Family Medicine
DX: Z12.31 Encounter for screening mammogram for malignant neoplasm of breast (principal)
CPT/HCPCS: 77063; 77067

== ENCOUNTER → 2022-06-21 15:27 | Outpatient (CLI) | payer OTHER, SELFPAY ==
[2021-11-19 16:03] VITALS: BMI 37.5
--- NOTE | 2022-06-21 15:29 | DI.RAD.S_ITS ---
PROCEDURE: XR CERVICAL SPINE 2V OR 3V INDICATIONS: pain TECHNIQUE: Three view(s) of the cervical spine were acquired. COMPARISON: None. FINDINGS: Bones: No fractures or dislocations to the T1 level. There is severe disc degeneration and moderate anterior endplate spurring at C4-5 and moderate degenerative disc height loss and endplate changes at C5-6 and C6-7. There is straightening of the normal cervical lordosis. The lateral masses of C1 appear intact on the odontoid view. No suspicious bony lesions. Soft tissues: No prevertebral soft tissue swelling. IMPRESSION: 1. Moderate to severe disc and endplate degeneration, most significant at C4-5. Dictated by: Margarita Aviles M.D. on 06/23/2022 at 20:08 Approved by: Margarita Aviles M.D. on 06/23/2022 at 20:12
--- NOTE | 2022-06-21 15:29 | DI.RAD.S_ITS ---
PROCEDURE: XR HIP W PEL IF DONE ALFONSO MIN 4V INDICATIONS: pain TECHNIQUE: AP pelvis with lateral view(s) of the bilateral hip(s). COMPARISON: None. FINDINGS: Bones: No fractures or dislocations. Mild symmetric hip joint degeneration. Pelvic ring appears intact. No suspicious bony lesions. Soft tissues: The visualized bowel gas pattern is normal. Small amorphous calcification adjacent to the left ischial tuberosity may be calcific tendinitis of the hamstrings tendon. No other unusual soft tissue calcifications. IMPRESSION: 1. Mild, symmetric and joint degeneration. 2. Small calcification suggesting possible left hamstrings calcific tendinitis. Dictated by: Margarita Aviles M.D. on 06/23/2022 at 20:31 Approved by: Margartia vAiles M.D. on 06/23/2022 at 20:35
--- NOTE | 2022-06-21 15:29 | DI.RAD.S_ITS ---
PROCEDURE: XR LUMBAR SPINE 2-3V INDICATIONS: pain TECHNIQUE: 3 views of the lumbar spine were acquired. COMPARISON: None. FINDINGS: Bones: 5 [id number] vertebrae are present. There is normal bony alignment. There is severe, near complete disc height loss at L5-S1. No significant degenerative endplate changes. No vertebral body compression fractures. No suspicious bony lesions. Soft tissues: Overlying bowel gas pattern is normal. No suspicious soft tissue calcifications. Cholecystectomy clips. IMPRESSION: 1. Severe L5-S1 disc height loss without significant endplate spurring. Dictated by: Margarita Aviles M.D. on 06/23/2022 at 20:26 Approved by: Margarita Aviles M.D. on 06/23/2022 at 20:30
--- NOTE | 2022-06-21 15:29 | DI.RAD.S_ITS ---
PROCEDURE: XR THORACIC SPINE 2V INDICATIONS: pain TECHNIQUE: 2 views of the thoracic spine were acquired. COMPARISON: None. FINDINGS: Bones: No fractures or dislocations. No suspicious bony lesions. 12 pairs of ribs are noted, and appear intact where visualized. Soft tissues: No paravertebral stripe thickening. Cholecystectomy clips. IMPRESSION: Normal thoracic spine. Dictated by: Margarita Aviles M.D. on 06/23/2022 at 20:12 Approved by: Margarita Aviles M.D. on 06/23/2022 at 20:25
== END ==
PROVIDERS: Family Provider Family Medicine; PCP Family Medicine; Referring Provider Family Medicine; Visit Provider Family Medicine
DX: M50.121 Cervical disc disorder at C4-C5 level with radiculopathy (principal); M43.6 Torticollis; M54.6 Pain in thoracic spine; M16.0 Bilateral primary osteoarthritis of hip; R20.0 Anesthesia of skin; M54.50 Low back pain, unspecified; G89.29 Other chronic pain
CPT/HCPCS: 72040; 72070; 72100; 73522

== ENCOUNTER → 2022-10-03 07:00 | Outpatient (CLI) | payer OTHER, SELFPAY ==
[2021-11-19 16:03] VITALS: BMI 37.5
[2022-10-03 08:57] LABS: Add Manual Diff / Slide Review NO; Basophils Absolute Auto 0 /uL (0-100); Basophils Percent Auto 0.6 % (0-2); Eosinophils Absolute Auto 100 /uL (0-450); Eosinophils Percent Auto 2.4 % (2-4); Hematocrit 41.7 % (36-46); Hemoglobin 14.3 g/dL (12.0-16.0); Lymphocytes Absolute Auto 1100 /uL (1100-4500); Lymphocytes Percent Auto 25.4 % (25-40); Mean Corpuscular HGB Conc 34.4 % (30-36); Mean Corpuscular Hemoglobin 30.7 PG (26-34); Mean Corpuscular Volume 89.4 fL (80-100); Monocytes Absolute Auto 400 /uL (0-900); Neutrophils Absolute Auto 2700 /uL (1500-7000); Neutrophils Percent Auto 61.6 % (50-75); Platelet Count 189 X10^3/uL (150-400); Red Blood Cell Count 4.66 X10^6/uL (4.0-5.2); Red Cell Distribution Width 13.4 % (11.6-14.8); White Blood Cell Count 4.3 X10^3/uL (4.5-11.0)
[2022-10-03 09:08] LABS: Alanine Aminotransferase 34 IU/L (<35); Albumin 4.3 g/dL (3.5-5.0); Albumin Globulin Ratio 1.4 (1.0-2.8); Alkaline Phosphatase 96 U/L (38-126); Aspartate Aminotransferase 29 IU/L (14-36); BUN Creatinine Ratio 23.1 (6-22); Bilirubin Total 0.6 mg/dL (0.2-1.3); Blood Urea Nitrogen 15 mg/dL (7-17); Calcium 8.8 mg/dL (8.4-10.2); Carbon Dioxide 27 mmol/L (22-32); Chloride 103 mmol/L (98-107); Cholesterol 184 mg/dL (140-199); Estimated Glomerular Filt Rate > 60 mL/min (>60); Globulin 3.1 g/dL (1.7-4.1); Glucose 113 mg/dL (80-110); HDL Cholesterol 55 mg/dL (40-60); HEMOLYSIS < 15 (0-50); LDL Cholesterol Calculated 103 mg/dL (<100); Potassium 3.8 mmol/L (3.4-5.1); Sodium 138 mmol/L (137-145); Total Protein 7.4 g/dL (6.3-8.2); Triglycerides 130 mg/dL (35-150)
[2022-10-03 10:13] LABS: Vitamin D 25 Hydroxy (D3) 35.8 ng/mL (30.0-100.0)
== END ==
PROVIDERS: Family Provider Family Medicine; PCP Family Medicine; Referring Provider Family Medicine; Visit Provider Family Medicine
DX: E78.2 Mixed hyperlipidemia (principal); I20.1 Angina pectoris with documented spasm; I47.1 Supraventricular tachycardia; I89.0 Lymphedema, not elsewhere classified; M85.80 Other specified disorders of bone density and structure, unspecified site; R00.2 Palpitations; Z87.898 Personal history of other specified conditions; Z68.38 Body mass index [BMI] 38.0-38.9, adult
CPT/HCPCS: 36415; 80053; 80061; 82306; 84443; 85025

== ENCOUNTER → 2022-10-31 13:44 | Outpatient (CLI) | payer OTHER, SELFPAY ==
[2021-11-19 16:03] VITALS: BMI 37.5
--- NOTE | 2022-10-31 13:45 | DI.MRI.S_ITS ---
PROCEDURE: MR LUMBAR SPINE WO CON INDICATIONS: radiculopathy TECHNIQUE: Noncontrast sagittal T1 spin echo and T2 fast echo, sagittal STIR, and T2 fast spin echo through the lumbar spine. In cases with scoliosis, additional coronal T2 fast spin echo may be performed. COMPARISON: [facility], CR, XR LUMBAR SPINE 2-3V, 06/21/2022, 15:34. FINDINGS: Image quality: Excellent. Alignment and Curvature: There is normal bony alignment. Bone Marrow: Marrow is of normal overall signal. No acute vertebral body compression fractures. Spinal Cord: Conus medullaris terminates at the L1 level. Visualized cord demonstrates normal signal and size. Paraspinous Soft Tissues: No paravertebral masses. Discs: Moderate to severe desiccation L5-S1. T12-L1: No disc bulge, spinal stenosis or foraminal narrowing. L1-L2: No disc bulge, spinal stenosis or foraminal narrowing. L2-L3: No disc bulge, spinal stenosis or foraminal narrowing. L3-L4: No disc bulge, spinal stenosis or foraminal narrowing. L4-L5: Minimal disc bulge without spinal stenosis or foraminal narrowing. Epidural lipomatosis as well as facet and ligamentum flavum hypertrophy are present. L5-S1: No disc bulge, spinal stenosis or foraminal narrowing. IMPRESSION: Minimal disc bulge at L4-5. No spinal stenosis or foraminal narrowing. Dictated by: Felicita Rosenbaum M.D. on 10/31/2022 at 16:51 Approved by: Felicita Rosenbaum M.D. on 10/31/2022 at 16:53
== END ==
PROVIDERS: Family Provider Family Medicine; PCP Family Medicine; Referring Provider Orthopaedic Surgery Orthopaedic Surgery of the Spine; Visit Provider Orthopaedic Surgery Orthopaedic Surgery of the Spine
DX: M54.10 Radiculopathy, site unspecified (principal)
CPT/HCPCS: 72148

== ENCOUNTER → 2022-11-20 09:27 | Outpatient (CLI) | payer OTHER, SELFPAY ==
[2021-11-19 16:03] VITALS: BMI 37.5
--- NOTE | 2022-11-20 09:28 | DI.MG.S_ITS ---
UNILATERAL LEFT DIGITAL DIAGNOSTIC MAMMOGRAM 3D/2D: 11/20/2022 CLINICAL: Paiin and Stinging. Comparison is made to exams dated: 06/15/2022 mammogram, 02/10/2021 mammogram, and 06/29/2018 mammogram - [facility]. There are scattered areas of fibroglandular density in the left breast (category b / 25%-50% glandular tissue). No significant masses, calcifications, or other findings are seen in the breast. IMPRESSION: NEGATIVE There is no abnormality seen in the left breast to correspond with the diffuse pain in the lateral aspect, however, clinical followup is recommended. There is no mammographic evidence of malignancy. Return to annual mammogram screening schedule is recommended. Future imaging is recommended as follows: 06/16/2023 screening mammogram. Based on the Tyrer Cuzick model (a risk assessment model) the patient's lifetime risk is 6.2% and her 10 year risk is 2.7%. According to the ACR, ACS, and NCCN guidelines, an annual breast MRI exam along with mammogram is recommended if the patient's lifetime risk is 20% or greater. This exam was interpreted at Station ID: [id number]. NOTE: For mammograms, a report in lay terms will be sent to the patient. Approximately 15% of breast malignancies will not be visualized mammographically. In the management of a palpable breast mass, a negative mammogram must not discourage biopsy of a clinically suspicious lesion. Electronically Signed By: Johnathon mansfield/pro:11/20/2022 12:43:04 letter sent: Clinical Evaluation ACR BI-RADS Category 1: Negative 3341F
== END ==
PROVIDERS: Family Provider Family Medicine; PCP Family Medicine; Referring Provider Family Medicine; Visit Provider Family Medicine
DX: R92.8 Other abnormal and inconclusive findings on diagnostic imaging of breast (principal); N64.4 Mastodynia
CPT/HCPCS: 77065; G0279

== ENCOUNTER → 2023-01-02 08:39 | Outpatient (CLI) | payer OTHER, SELFPAY ==
[2021-11-19 16:03] VITALS: BMI 37.5
[2023-01-02 09:24] LABS: Alanine Aminotransferase 40 IU/L (<35); Albumin 4.2 g/dL (3.5-5.0); Albumin Globulin Ratio 1.6 (1.0-2.8); Alkaline Phosphatase 112 U/L (38-126); Aspartate Aminotransferase 31 IU/L (14-36); Bilirubin Total 0.5 mg/dL (0.2-1.3); Bilirubin Unconjugated 0.4 mg/dL (0.0-1.1); Globulin 2.7 g/dL (1.7-4.1); HEMOLYSIS < 15 (0-50); Total Protein 6.9 g/dL (6.3-8.2)
== END ==
PROVIDERS: Family Provider Family Medicine; PCP Family Medicine; Referring Provider Internal Medicine; Visit Provider Internal Medicine
DX: E78.5 Hyperlipidemia, unspecified (principal)
CPT/HCPCS: 36415; 80076

== ENCOUNTER → 2023-03-11 11:05 | Outpatient (CLI) | payer OTHER, SELFPAY ==
[2021-11-19 16:03] VITALS: BMI 37.5
--- NOTE | 2023-03-11 11:14 | DI.RAD.S_ITS ---
PROCEDURE: XR CHEST 2V INDICATIONS: Cough x 7 days TECHNIQUE: 2 views of the chest were acquired. COMPARISON: [facility], CR, XR CHEST 1V, 04/23/2022, 15:01. [facility], CR, XR CHEST 1V, 11/19/2021, 9:01. FINDINGS: Surgical changes and devices: Cholecystectomy clips. Lungs and pleura: Lungs appear clear. No pleural effusions or pneumothorax. Mediastinum: Mediastinal contours are unchanged. Heart size is within normal limits. Bones and chest wall: No suspicious bony abnormalities. Soft tissues appear unremarkable. IMPRESSION: No acute cardiopulmonary abnormality. Dictated by: Sathish Kohler M.D. on 03/11/2023 at 13:26 Approved by: Sathish Kohler M.D. on 03/11/2023 at 13:27
[2023-03-11 11:49] LABS: COVID-19 CEPHEID 4-PLEX PCR Negative (Negative); Influenza A - CEPHEID Flu A NEGATIVE (NEGATIVE); Influenza B - CEPHEID Flu B NEGATIVE (NEGATIVE); Respiratory Syncytial Virus Negative (Negative)
== END ==
PROVIDERS: Family Provider Family Medicine; PCP Family Medicine; Referring Provider Physician Assistant; Visit Provider Physician Assistant
DX: R05.1 Acute cough (principal); R05.9 Cough, unspecified
CPT/HCPCS: 0241U; 71046

== ENCOUNTER → 2023-05-17 09:14 | Outpatient (CLI) | payer OTHER, SELFPAY ==
[2021-11-19 16:03] VITALS: BMI 37.5
[2023-05-17 09:47] LABS: Cholesterol 154 mg/dL (140-199); HDL Cholesterol 49 mg/dL (40-60); LDL Cholesterol Calculated 75 mg/dL (<100); Triglycerides 152 mg/dL (35-150)
== END ==
PROVIDERS: Family Provider Family Medicine; PCP Family Medicine; Referring Provider Internal Medicine; Visit Provider Internal Medicine
DX: E78.5 Hyperlipidemia, unspecified (principal)
CPT/HCPCS: 36415; 80061

== ENCOUNTER → 2023-06-21 07:46 | Outpatient (CLI) | payer OTHER, SELFPAY ==
[2021-11-19 16:03] VITALS: BMI 37.5
--- NOTE | 2023-06-21 | DI.MG.S_ITS ---
BILATERAL DIGITAL SCREENING MAMMOGRAM 3D/2D WITH CAD: 06/21/2023 CLINICAL: Routine screening. Comparison is made to exams dated: 11/20/2022 mammogram, 06/15/2022 mammogram, 02/10/2021 mammogram, and 06/29/2018 mammogram - [facility]. There are scattered areas of fibroglandular density in both breasts (category b / 25%-50% glandular tissue). Current study was also evaluated with a Computer Aided Detection (CAD) system. No significant masses, calcifications, or other findings are seen in either breast. There has been no significant interval change. IMPRESSION: NEGATIVE There is no mammographic evidence of malignancy. A 1 year screening mammogram is recommended. Based on the Tyrer Cuzick model (a risk assessment model) the patient's lifetime risk is 6.2% and her 10 year risk is 2.7%. According to the ACR, ACS, and NCCN guidelines, an annual breast MRI exam along with mammogram is recommended if the patient's lifetime risk is 20% or greater. This exam was interpreted at Station ID: [id number]. NOTE: For mammograms, a report in lay terms will be sent to the patient. Approximately 15% of breast malignancies will not be visualized mammographically. In the management of a palpable breast mass, a negative mammogram must not discourage biopsy of a clinically suspicious lesion. Electronically Signed By: Benja paniagua/pro:06/23/2023 09:42:46 letter sent: Normal Exam ACR BI-RADS Category 1: Negative [id number]
== END ==
LOC: MAMMO 07:48
PROVIDERS: Family Provider Family Medicine; PCP Family Medicine; Referring Provider Family Medicine; Visit Provider Family Medicine
DX: Z12.31 Encounter for screening mammogram for malignant neoplasm of breast (principal); R92.323 Mammographic fibroglandular density, bilateral breasts
CPT/HCPCS: 77063; 77067

== ENCOUNTER 2023-06-26 09:25 | Emergency (ER) | payer OTHER, SELFPAY ==
[2021-11-19 16:03] VITALS: BMI 37.5
[2023-06-26 09:27] VITALS: BP 122/69; PULSE 68; RESP 14; TEMP 36.3; O2SAT 96; BMI 38.0
--- NOTE | 2023-06-26 09:33 | DI.RAD.S_ITS ---
PROCEDURE: XR SHOULDER RT MIN 2V INDICATIONS: shoulder pain TECHNIQUE: 3 views of the shoulder were acquired. COMPARISON: [facility], CR, XR SHOULDER LT MIN 2V, 01/15/2022, 22:01. FINDINGS: Bones: No acute fracture. Normal glenohumeral alignment. Clavicle is 1 shaft width superiorly displaced with respect to the acromion. Coracoclavicular interval measures 1.9 cm. No suspicious bony lesions. Visualized ribs appear intact. Soft tissues: No suspicious soft tissue calcifications. IMPRESSION: 1. No acute fracture. 2. Clavicle is 1 shaft width superiorly displaced with respect to the acromion. Coracoclavicular interval measures 19 mm. Findings are suggestive of an acromioclavicular/coracoclavicular ligamentous injury (Aledo type 3) Dictated by: Lakshmi Brandon M.D. on 06/26/2023 at 9:43 Approved by: Lakshmi Brandon M.D. on 06/26/2023 at 9:46
--- NOTE | 2023-06-26 09:48 | ED_ITS ---
HPI - Extremity Problem General Chief complaint: Extremity Problem,Nontraumatic Stated complaint: Right shoulder pain Time Seen by Provider: 06/26/23 09:26 Source: patient Mode of arrival: Ambulatory History of Present Illness HPI Narrative: 62yoF presents by private vehicle from home for right shoulder pain since waking up this morning. Patient states that she has a remote history of AC joint separation and is concerned that she either may have dislocated her shoulder or it further. She denies trauma or other injury. Related Data Home Medications Medication Instructions Recorded Confirmed magnesium oxide 750 mg PO BEDTIME 09/01/18 04/30/23 melatonin 10 mg capsule 25 mg PO BEDTIME 06/11/19 04/30/23 clobetasol 0.05 % scalp solution 1 applic topical itch 01/02/23 04/30/23 clobetasol 0.05 % topical cream 1 applic topical BID 01/02/23 04/30/23 ketoconazole 2 % shampoo topical 01/02/23 04/30/23 rosuvastatin 5 mg tablet 5 mg PO DAILY 01/02/23 04/30/23 Previous Rx's Medication Instructions Recorded nitroglycerin 0.4 mg sublingual 0.4 mg sublingual Q5M PRN chest 11/30/21 tablet (Nitrostat) pain #10 tabs tacrolimus 0.1 % topical ointment 1 applic topical DAILY #30 grams 03/10/22 amlodipine 5 mg tablet See Rx Instructions .Route 09/17/22 .COMPLEX #90 tabs cyclobenzaprine 10 mg tablet 10 mg PO TID PRN muscle spasm #90 02/12/23 tabs hydroxyzine HCl 10 mg tablet 20 mg (2 x 10 mg) PO BEDTIME #180 02/12/23 tabs nadolol 40 mg tablet 40 mg PO DAILY #90 tabs 02/12/23 trazodone 50 mg tablet See Rx Instructions .Route 02/12/23 .COMPLEX #180 tabs triamcinolone acetonide 0.1 % 1 applic topical BID PRN rash #30 02/21/23 topical cream grams fluticasone propionate 50 1 spray intranasal DAILY #16 grams 03/20/23 mcg/actuation nasal spray,suspension (Flonase Allergy Relief) chlorthalidone 25 mg tablet 12.5 mg (1/2 x 25 mg) PO DAILY 04/30/23 blood pressure/swelling #45 tabs dextroamphetamine-amphetamine 5 mg See Rx Instructions PO BID #120 06/17/23 tablet tabs Allergies Allergy/AdvReac Type Severity Reaction Status Date / Time nickel [NICKEL] Allergy Severe SEVERE PAIN Verified 06/26/23 09:29 amoxicillin [AMOXICILLIN] Allergy Intermediate HIVES Verified 06/26/23 09:29 FROM HEAD TO TOE AND EVERY IN BETWEEN bupivacaine [From MARCAINE] Allergy Intermediate HIVES Verified 06/26/23 09:29 FROM HEAD TO TOE AND EVERYWHERE IN BETWEEN neomycin [NEOMYCIN] Allergy Intermediate HIVES Verified 06/26/23 09:29 FROM HEAD TO TOE AND EVERYWHERE IN BETWEEN linalool AdvReac Intermediate Rash Uncoded 04/30/23 09:10 Review of Systems Review of Systems Narrative: Negative except as noted above Patient History Medical History ADHD (attention deficit hyperactivity disorder), combined type Irritable bowel syndrome with alternating bowel habits Skin lesions Breast pain, left Lumbar radiculopathy, chronic Chronic thoracic back pain Facial eczema Cervical radiculopathy Body posture problem Seborrheic keratoses Actinic keratosis of right side of forehead Acute pain of left shoulder Greater trochanteric bursitis of left hip Lumbar region somatic dysfunction Thoracic region somatic dysfunction Iliotibial band syndrome of both sides Bilateral lower extremity edema Neurogenic thoracic outlet syndrome of both brachial plexuses Strain of gluteus medius of right lower extremity Right knee pain Left shoulder strain Prinzmetal angina Hyperlipidemia History of exertional chest pain Nonsustained paroxysmal supraventricular tachycardia Palpitations with regular cardiac rhythm Postmenopausal Insomnia Vasomotor flushing Thoracic region somatic dysfunction Hot flashes Rosacea Superficial laceration Segmental and somatic dysfunction of upper extremity Bilateral carpal tunnel syndrome Pelvic somatic dysfunction Segmental and somatic dysfunction of sacral region Segmental and somatic dysfunction of lumbar region Segmental and somatic dysfunction of rib cage Segmental and somatic dysfunction of abdomen and other regions Cervical somatic dysfunction Cranial somatic dysfunction Neck stiffness Bilateral hand numbness Chronic diarrhea BMI 38.0-38.9,adult Osteopenia (04/2016) Nocturnal hypoxia (Unknown) Migraines (Unknown) Surgical History History of loop electrical excision procedure (LEEP) History of loop electrical excision procedure (LEEP) History of appendectomy S/P ACL reconstruction (1987) Status post cholecystectomy Family History Brother Age: 69 Diabetes mellitus Mother Smoker Social History household members: spouse Smoking Status: Never smoker second hand exposure: No alcohol intake: current substance use type: does not use Smoking Status: Never smoker alcohol intake frequency: 0-2 drinks per day Substance Use Type: does not use Exam Initial Vital Signs Initial Vital Signs: Vital Signs Temperature 97.3 F L 06/26/23 09:27 Pulse Rate 68 06/26/23 09:27 Respiratory Rate 14 06/26/23 09:27 Blood Pressure 122/69 06/26/23 09:27 Pulse Oximetry 96 06/26/23 09:27 Oxygen Delivery Method Room Air 06/26/23 09:27 Const: Awake, alert, no acute distress, nontoxic appearing Cardiac: regular rate, regular rhythm RESP: unlabored, clear bilaterally, no wheezing GI: Atraumatic, soft, nontender, nondistended, no rebound, no guarding MSK: Generalized tenderness to palpation over the right biceps, especially with extension Skin: Warm, Dry, intact, no rashes Neuro: AO x3, CN II-XII grossly intact, moves all extremities Psych: affect normal, mood normal, not suicidal, not homicidal Course Orders Ordered: ED Orders 06/26/23 09:33 XR shoulder RT min 2V Stat Vital Signs Vital signs: Vital Signs - 8 hr 06/26/23 09:27 Temperature 97.3 F L Pulse Rate 68 Respiratory Rate 14 Blood Pressure 122/69 Pulse Oximetry 96 Oxygen Delivery Method Room Air MDM - Extremity (Nontraumatic) MDM Narrative Medical decision making narrative: Well-appearing patient with atraumatic right shoulder pain. X-rays show AC separation, which is known to the patient. Patient likely slept incorrectly or had occult injury that is now becoming more painful. Patient was informed of x- ray imaging results, placed in sling for comfort. Counseled that she should continue to use the joint to avoid stiffening the joint, recommended Tylenol and Motrin as needed for pain. Ortho referral provided. Discharge Plan Departure Patient Disposition: Home Clinical Impression: AC separation Qualifiers: Encounter type: initial encounter Laterality: right Qualified Code(s): S43.101A - Unspecified dislocation of right acromioclavicular joint, initial encounter Instructions: DI for AC Joint Separation Activity Restrictions/Additional Instructions: Use Tylenol and Motrin as needed for pain. You may also use Voltaren gel which can be found [id number] for pain control. Ice as needed for comfort. I highly recommend that you follow up with Orthopedic surgery to see if any further interventions need to be done. Prescriptions: No Action magnesium oxide 400 mg capsule 750 mg PO BEDTIME tacrolimus 0.1 % ointment 1 applic topical DAILY Qty: 30 0RF Rx Instructions: For around the eyes, use on week days for longer-term as needed fluticasone propionate [Flonase Allergy Relief] 50 mcg/actuation spray,suspension 1 spray intranasal DAILY Qty: 16 0RF Rx Instructions: administer into each nostril nitroglycerin [Nitrostat] 0.4 mg tablet, sublingual 0.4 mg SL Q5M PRN (Reason: chest pain) Qty: 10 4RF Rx Instructions: do not exceed 3 doses per episode amlodipine 5 mg tablet See Rx Instructions .ROUTE .COMPLEX Qty: 90 3RF Dose Instruction: TAKE 1 TABLET BY MOUTH DAILY Rx Instructions: TAKE 1 TABLET BY MOUTH DAILY cyclobenzaprine 10 mg tablet 10 mg PO TID PRN (Reason: muscle spasm) Qty: 90 1RF hydroxyzine HCl 10 mg tablet 20 mg PO BEDTIME Qty: 180 1RF nadolol 40 mg tablet 40 mg PO DAILY Qty: 90 1RF trazodone 50 mg tablet See Rx Instructions .ROUTE .COMPLEX MDD 2 Qty: 180 1RF Dose Instruction: TAKE 1 TO 2 TABLETS BY MOUTH DAILY AT BEDTIME NEEDED FOR SLEEP Rx Instructions: TAKE 1 TO 2 TABLETS BY MOUTH DAILY AT BEDTIME NEEDED FOR SLEEP dextroamphetamine-amphetamine 5 mg tablet See Rx Instructions PO BID Qty: 120 0RF Rx Instructions: Start with 1 tab daily, and increase as needed every 3 days up to max of 10mg BID, administer doses at least 4-6 hours apart rosuvastatin 5 mg tablet 5 mg PO DAILY clobetasol 0.05 % solution 1 applic topical clobetasol 0.05 % cream 1 applic topical BID ketoconazole 2 % shampoo topical triamcinolone acetonide 0.1 % cream 1 applic topical BID PRN (Reason: rash) Qty: 30 11RF Rx Instructions: apply to affected areas for a 2 weeks if needed then stop for 1-2 weeks. can repeat as needed. chlorthalidone 25 mg tablet 12.5 mg PO DAILY Qty: 45 3RF melatonin 10 mg capsule 25 mg PO BEDTIME Referrals: Paul Byrd MD [Physician] - Juan Rhodes DO [Primary Care Provider] - Stand Alone Forms: Patient Portal/API
== END 2023-06-26 10:04 | disposition home or self-care (01) ==
PROVIDERS: Emergency Provider Emergency Medicine; Family Provider Family Medicine; PCP Family Medicine
DX: S43.101A Unspecified dislocation of right acromioclavicular joint, initial encounter (principal)
CPT/HCPCS: 73030; 99283

== ENCOUNTER → 2023-07-29 16:33 | Outpatient (CLI) | payer OTHER, SELFPAY ==
[2021-11-19 16:03] VITALS: BMI 37.5
[2023-07-29 18:03] LABS: Add Manual Diff / Slide Review NO; Basophils Absolute Auto 0 /uL (0-100); Basophils Percent Auto 0.5 % (0-2); Eosinophils Absolute Auto 100 /uL (0-450); Hematocrit 45.6 % (36-46); Hemoglobin 15.7 g/dL (12.0-16.0); Lymphocytes Absolute Auto 1300 /uL (1100-4500); Mean Corpuscular HGB Conc 34.5 % (30-36); Mean Corpuscular Hemoglobin 30.4 PG (26-34); Mean Corpuscular Volume 88.1 fL (80-100); Monocytes Absolute Auto 600 /uL (0-900); Monocytes Percent Auto 8.5 % (3-14); Neutrophils Absolute Auto 4600 /uL (1500-7000); Platelet Count 201 X10^3/uL (150-400); Red Blood Cell Count 5.17 X10^6/uL (4.0-5.2); Red Cell Distribution Width 13.3 % (11.6-14.8); White Blood Cell Count 6.6 X10^3/uL (4.5-11.0)
[2023-07-29 18:29] LABS: BUN Creatinine Ratio 27.3 (6-22); Blood Urea Nitrogen 18 mg/dL (7-17); Calcium 9.3 mg/dL (8.4-10.2); Carbon Dioxide 27 mmol/L (22-32); Chloride 100 mmol/L (98-107); Estimated Glomerular Filt Rate > 60 mL/min (>60); Glucose 98 mg/dL (80-110); HEMOLYSIS < 15 (0-50); Potassium 3.1 mmol/L (3.4-5.1); Sodium 138 mmol/L (137-145)
== END ==
LOC: LAB 16:34
PROVIDERS: Family Provider Family Medicine; PCP Family Medicine; Referring Provider Orthopaedic Surgery Orthopaedic Surgery of the Spine; Visit Provider Orthopaedic Surgery Orthopaedic Surgery of the Spine
DX: M54.16 Radiculopathy, lumbar region (principal)
CPT/HCPCS: 36415; 80048; 85025

== ENCOUNTER → 2023-07-31 13:44 | Outpatient (CLI) | payer OTHER, SELFPAY ==
[2021-11-19 16:03] VITALS: BMI 37.5
--- NOTE | 2023-07-31 13:45 | DI.MRI.S_ITS ---
PROCEDURE: MR SHOULDER RT WO CON INDICATIONS: ROTATOR CUFF SYNDROME OF RT SHOULDER TECHNIQUE: Noncontrast oblique coronal T2 fast spin echo with fat saturation, oblique sagittal T1 spin echo and T2 fast spin echo with fat saturation, axial T1 spin echo and T2 fast spin echo with fat saturation through the shoulder. COMPARISON: [facility], CR, XR SHOULDER RT MIN 2V, 06/26/2023, 9:35. FINDINGS: Image quality: Excellent. Rotator cuff: There is intermediate grade partial-thickness tear of the supraspinatus tendon involving the bursal surface. No tendon retraction or supraspinatus muscle atrophy. There is moderate infraspinatus. Mild interstitial tear of the infraspinatus tendon. No infraspinatus muscle atrophy. Mild subscapularis tendinosis without tendon tear or muscle atrophy. Bones and bursae: No bone marrow contusions or fractures. There is partial resection of the distal clavicle. The acromion demonstrates conventional anatomy, without an os acromiale. No pathologic subacromial-subdeltoid or subcoracoid bursal fluid is present. Capsule and soft tissues: Labrum appears intact. There is moderate tendinosis involving the intra-articular segment of the long head of the biceps. The rotator interval appears normal, without fibrosis. The coracohumeral ligament is normal in thickness. IMPRESSION: 1. Intermediate-grade partial-thickness tear of the supraspinatus tendon. 2. Low-grade interstitial tear of the infraspinatus tendon and moderate tendinosis. 3. Mild subscapularis tendinosis. 4. Moderate tendinosis of the proximal long head of the biceps. 5. Partial resection of the distal clavicle. Dictated by: Amirah Conde M.D. on 07/31/2023 at 17:09 Approved by: Amirah Conde M.D. on 08/01/2023 at 23:52
== END ==
PROVIDERS: Family Provider Family Medicine; PCP Family Medicine; Referring Provider Orthopaedic Surgery; Visit Provider Orthopaedic Surgery
DX: M75.111 Incomplete rotator cuff tear or rupture of right shoulder, not specified as traumatic (principal)
CPT/HCPCS: 73221

== ENCOUNTER 2023-08-17 17:20 | Emergency (ER) | payer OTHER, SELFPAY ==
[2021-11-19 16:03] VITALS: BMI 37.5
[2023-08-17 17:25] VITALS: BP 152/77; PULSE 78; RESP 16; TEMP 36.6; O2SAT 97; BMI 38.3
--- NOTE | 2023-08-17 17:53 | ED.WOUNDLAC ---
HPI - Wound/Laceration <FRANC Duffy - Last Filed: 08/17/23 17:59> General Chief Complaint: Wound/Laceration Stated Complaint: hand laceration Time Seen by Provider: 08/17/23 17:29 Source: patient Mode of arrival: Ambulatory History of Present Illness HPI narrative: 63-year-old female, never smoker, presents to the emergency department with left index finger laceration after cutting it with a electric fabric tremor approximately 45 minutes ago. Patient states that it bled profusely and she was able to rinse it in the seek and apply a pressure dressing. Patient endorses that her last tetanus shot was within the last 5 years. Related Data Home Medications Medication Instructions Recorded Confirmed magnesium oxide 750 mg PO BEDTIME 09/01/18 08/05/23 melatonin 10 mg capsule 25 mg PO BEDTIME 06/11/19 08/05/23 clobetasol 0.05 % scalp solution 1 applic topical itch 01/02/23 08/05/23 clobetasol 0.05 % topical cream 1 applic topical BID 01/02/23 08/05/23 ketoconazole 2 % shampoo topical 01/02/23 08/05/23 rosuvastatin 5 mg tablet 5 mg PO DAILY 01/02/23 08/05/23 Previous Rx's Medication Instructions Recorded nitroglycerin 0.4 mg sublingual 0.4 mg sublingual Q5M PRN chest 11/30/21 tablet (Nitrostat) pain #10 tabs tacrolimus 0.1 % topical ointment 1 applic topical DAILY #30 grams 03/10/22 amlodipine 5 mg tablet See Rx Instructions .Route 09/17/22 .COMPLEX #90 tabs cyclobenzaprine 10 mg tablet 10 mg PO TID PRN muscle spasm #90 02/12/23 tabs hydroxyzine HCl 10 mg tablet 20 mg (2 x 10 mg) PO BEDTIME #180 02/12/23 tabs nadolol 40 mg tablet 40 mg PO DAILY #90 tabs 02/12/23 trazodone 50 mg tablet See Rx Instructions .Route 02/12/23 .COMPLEX #180 tabs triamcinolone acetonide 0.1 % 1 applic topical BID PRN rash #30 02/21/23 topical cream grams chlorthalidone 25 mg tablet 25 mg PO DAILY blood 08/05/23 pressure/swelling #90 tabs dextroamphetamine-amphetamine 5 mg 10 mg (2 x 5 mg) PO BID #120 tabs 08/05/23 tablet Allergies Allergy/AdvReac Type Severity Reaction Status Date / Time nickel [NICKEL] Allergy Severe SEVERE PAIN Verified 08/17/23 17:27 amoxicillin [AMOXICILLIN] Allergy Intermediate HIVES Verified 08/17/23 17:27 FROM HEAD TO TOE AND EVERY IN BETWEEN bupivacaine [From MARCAINE] Allergy Intermediate HIVES Verified 08/17/23 17:27 FROM HEAD TO TOE AND EVERYWHERE IN BETWEEN neomycin [NEOMYCIN] Allergy Intermediate HIVES Verified 08/17/23 17:27 FROM HEAD TO TOE AND EVERYWHERE IN BETWEEN linalool AdvReac Intermediate Rash Uncoded 08/17/23 17:27 Review of Systems <FRANC Duffy - Last Filed: 08/17/23 17:59> Review of Systems Narrative: Narrative: See HPI. GENERAL: Denies chills, fatigue, fever, sweats. HEENT: Denies sinus pain, ear pain, sore throat, difficulty swallowing, dizziness. RESPIRATORY: Denies dyspnea, cough, wheezing, sputum. CARDIOVASCULAR: Denies chest pain, palpitations, edema. GASTROINTESTINAL: Denies nausea, vomiting, abdominal pain, diarrhea, constipation. MSK: Denies weakness, joint pain, or bony pain. SKIN: Denies rash, skin lesions, or pruritis. Endorses laceration of left index finger. NEUROLOGIC: Denies weakness, dizziness, headache, numbness, confusion. Patient History <FRANC Duffy - Last Filed: 08/17/23 17:59> Medical History ADHD (attention deficit hyperactivity disorder), combined type Irritable bowel syndrome with alternating bowel habits Skin lesions Breast pain, left Lumbar radiculopathy, chronic Chronic thoracic back pain Facial eczema Cervical radiculopathy Body posture problem Seborrheic keratoses Actinic keratosis of right side of forehead Acute pain of left shoulder Greater trochanteric bursitis of left hip Lumbar region somatic dysfunction Thoracic region somatic dysfunction Iliotibial band syndrome of both sides Bilateral lower extremity edema Neurogenic thoracic outlet syndrome of both brachial plexuses Strain of gluteus medius of right lower extremity Right knee pain Left shoulder strain Prinzmetal angina Hyperlipidemia History of exertional chest pain Nonsustained paroxysmal supraventricular tachycardia Palpitations with regular cardiac rhythm Postmenopausal Insomnia Vasomotor flushing Thoracic region somatic dysfunction Hot flashes Rosacea Superficial laceration Segmental and somatic dysfunction of upper extremity Bilateral carpal tunnel syndrome Pelvic somatic dysfunction Segmental and somatic dysfunction of sacral region Segmental and somatic dysfunction of lumbar region Segmental and somatic dysfunction of rib cage Segmental and somatic dysfunction of abdomen and other regions Cervical somatic dysfunction Cranial somatic dysfunction Neck stiffness Bilateral hand numbness Chronic diarrhea BMI 38.0-38.9,adult Osteopenia (04/2016) Nocturnal hypoxia (Unknown) Migraines (Unknown) Surgical History History of loop electrical excision procedure (LEEP) History of loop electrical excision procedure (LEEP) History of appendectomy S/P ACL reconstruction (1987) Status post cholecystectomy Family History Brother Age: 69 Diabetes mellitus Mother Smoker Social History household members: spouse Smoking Status: Never smoker second hand exposure: No alcohol intake: current substance use type: does not use Smoking Status: Never smoker alcohol intake frequency: 0-2 drinks per day Substance Use Type: does not use Exam <FRANC Duffy - Last Filed: 08/17/23 17:59> Narrative Exam Narrative: Exam Narrative: GENERAL: This is a well-nourished, well-developed patient, in no acute distress. HEAD: Atraumatic. Normocephalic. RESPIRATORY: Normal respiratory rate and effort. MSK: Moves all extremities. Normal range of motion, no clubbing or edema. Neurovascularly intact. NEURO: A&O x 3. SKIN: Warm, dry, no rashes or lesions noted. 1.5 cm laceration of left index finger distal phalanx. Site was anesthetized, cleansed and closed with 3 sutures. Patient tolerated procedure well. Initial Vital Signs Initial Vital Signs: Vital Signs Temperature 97.9 F 08/17/23 17:25 Pulse Rate 78 08/17/23 17:25 Respiratory Rate 16 08/17/23 17:25 Blood Pressure 152/77 H 08/17/23 17:25 Pulse Oximetry 97 08/17/23 17:25 Oxygen Delivery Method Room Air 08/17/23 17:25 Reviewed <Sunil Pratt DO - Last Filed: 08/21/23 07:00> Initial Vital Signs Initial Vital Signs: Vital Signs Temperature 97.9 F 08/17/23 17:25 Pulse Rate 78 08/17/23 17:25 Respiratory Rate 16 08/17/23 17:25 Blood Pressure 152/77 H 08/17/23 17:25 Pulse Oximetry 97 08/17/23 17:25 Oxygen Delivery Method Room Air 08/17/23 17:25 Procedures <FRANC Duffy - Last Filed: 08/17/23 17:59> Laceration Repair Laceration 1: Time of procedure: 17:56 Site: other (Left index finger) Side (If applicable): left Size (cm): 1.5 Description: linear Depth: simple, single layer Local Anesthetic: lidocaine 1% Amount of anesthesia used (mL): 2 Skin layer closed with: nylon Skin layer suture size: 5-0 Number of sutures: 3 Technique: simple, interrupted Course <FRANC Duffy - Last Filed: 08/17/23 17:59> Orders Ordered: Discontinued Medications Bacitracin (Bacitracin Oint 0.9 Gm Pckt) 1 applic TOP NOW ONE Stop: 08/17/23 17:49 Last Admin: 08/17/23 18:00 Dose: 1 applic Documented By: NEENA Vital Signs Vital signs: Vital Signs - 8 hr 08/17/23 17:25 Temperature 97.9 F Pulse Rate 78 Respiratory Rate 16 Blood Pressure 152/77 H Pulse Oximetry 97 Oxygen Delivery Method Room Air <Sunil Pratt DO - Last Filed: 08/21/23 07:00> Orders Ordered: Discontinued Medications Bacitracin (Bacitracin Oint 0.9 Gm Pckt) 1 applic TOP NOW ONE Stop: 08/17/23 17:49 Last Admin: 08/17/23 18:00 Dose: 1 applic Documented By: NEENA Vital Signs Vital signs: Vital Signs - 8 hr 08/17/23 17:25 Temperature 97.9 F Pulse Rate 78 Respiratory Rate 16 Blood Pressure 152/77 H Pulse Oximetry 97 Oxygen Delivery Method Room Air MDM - Wound/Laceration <FRANC Duffy - Last Filed: 08/17/23 17:59> Differential Diagnosis Differential diagnosis: Likely laceration MDM Narrative Medical decision making narrative: 63-year-old female with left index finger laceration. Site was anesthetized, irrigated, cleansed, closed with 3 sutures and dressed with antibiotic ointment and Band-Aid. Patient tolerated procedure well. Tetanus is up-to-date. Instructed patient and to follow up with family doctor or walk-in clinic 10-14 days for suture removal. Discussed proper wound care and signs and symptoms that would necessitate a return visit for possible antibiotic therapy. Patient and verbalized understanding and were agreeable with course of. Discharge Plan Departure Patient Disposition: Home Clinical Impression: Laceration Instructions: DI for Laceration Repair, DI for Wound Infection Activity Restrictions/Additional Instructions: *You have been diagnosed with finger laceration. We are able to close the laceration with 3 sutures. Please follow up with your family doctor or the walk-in clinic in 10-14 days for suture removal. Please watch for signs of infection that include increased redness, swelling, warmth or yellow discharge. If this occurs, please go to your family doctor walk-in clinic for possible antibiotic therapy. For any worsening symptoms, feel free to return to the emergency department. *What to do: *Please continue to take your regular medications as directed. [ ] New medication prescriptions sent to your pharmacy: [ ] [ ] New medication written as a paper prescription [ x] No new medications given *Please follow up with your primary care provider in 2-3 days, call for an appointment. Let them know you were seen in the Emergency Department and that we ask that you be seen in follow up. We will electronically transmit a record of today's note if your PCP is in our system *If you do not have a primary care provider please contact the [facility] Resource line at [phone]. They will ask some questions about your medical history and help get you set up with a doctor in the community. ? Return to ER if you should have any new, worsening or concerning symptoms, such as worsening pain, severe headache, confusion, chest pain, difficulty breathing, fever greater than 101 F, shaking chills, persistent vomiting to the point that you cannot drink fluids, or other new or worsening symptoms. Prescriptions: No Action magnesium oxide 400 mg capsule 750 mg PO BEDTIME tacrolimus 0.1 % ointment 1 applic topical DAILY Qty: 30 0RF Rx Instructions: For around the eyes, use on week days for longer-term as needed nitroglycerin [Nitrostat] 0.4 mg tablet, sublingual 0.4 mg SL Q5M PRN (Reason: chest pain) Qty: 10 4RF Rx Instructions: do not exceed 3 doses per episode amlodipine 5 mg tablet See Rx Instructions .ROUTE .COMPLEX Qty: 90 3RF Dose Instruction: TAKE 1 TABLET BY MOUTH DAILY Rx Instructions: TAKE 1 TABLET BY MOUTH DAILY cyclobenzaprine 10 mg tablet 10 mg PO TID PRN (Reason: muscle spasm) Qty: 90 1RF hydroxyzine HCl 10 mg tablet 20 mg PO BEDTIME Qty: 180 1RF nadolol 40 mg tablet 40 mg PO DAILY Qty: 90 1RF trazodone 50 mg tablet See Rx Instructions .ROUTE .COMPLEX MDD 2 Qty: 180 1RF Dose Instruction: TAKE 1 TO 2 TABLETS BY MOUTH DAILY AT BEDTIME NEEDED FOR SLEEP Rx Instructions: TAKE 1 TO 2 TABLETS BY MOUTH DAILY AT BEDTIME NEEDED FOR SLEEP rosuvastatin 5 mg tablet 5 mg PO DAILY clobetasol 0.05 % solution 1 applic topical clobetasol 0.05 % cream 1 applic topical BID ketoconazole 2 % shampoo topical triamcinolone acetonide 0.1 % cream 1 applic topical BID PRN (Reason: rash) Qty: 30 11RF Rx Instructions: apply to affected areas for a 2 weeks if needed then stop for 1-2 weeks. can repeat as needed. dextroamphetamine-amphetamine 5 mg tablet 10 mg PO BID Qty: 120 0RF Rx Instructions: Take 2 tabs twice daily for ADHD chlorthalidone 25 mg tablet 25 mg PO DAILY Qty: 90 3RF melatonin 10 mg capsule 25 mg PO BEDTIME Referrals: Juan Rhodes DO [Primary Care Provider] - Stand Alone Forms: Patient Portal/API ED Sign-out <Sunil Pratt DO - Last Filed: 08/21/23 07:00> [facility] Dr Pratt Co-Sign Statement: I was available for consultation during this patient's emergency department visit. This chart is signed by myself for administrative purposes only. I did not have direct contact with this patient during this visit. They were seen independently by the APC.
[2023-08-17 17:58] VITALS: BP 140/74; PULSE 76; RESP 16; TEMP 36.6; O2SAT 98
[2023-08-17] MEDS: BACITRACIN OINT 0.9 GM PCKT 1 APPLIC TOP (18:00)
== END 2023-08-17 18:02 | disposition home or self-care (01) ==
PROVIDERS: Emergency Provider Registered Nurse; Family Provider Family Medicine; PCP Family Medicine
DX: S61.211A Laceration without foreign body of left index finger without damage to nail, initial encounter (principal); W26.8XXA Contact with other sharp object(s), not elsewhere classified, initial encounter
CPT/HCPCS: 12001; 99282; 99283

== ENCOUNTER → 2023-09-22 09:09 | Outpatient (CLI) | payer OTHER, SELFPAY ==
[2021-11-19 16:03] VITALS: BMI 37.5
[2023-09-22 09:39] LABS: Appearance Urine UA CLOUDY; Bilirubin Urine UA NEGATIVE (NEGATIVE); Color Urine UA BROWN; Glucose Urine UA NEGATIVE (Negative); Ketones Urine UA NEGATIVE (NEGATIVE); Leukocyte Esterase Urine UA TRACE (NEGATIVE); Nitrite Urine UA POSITIVE (Negative); Occult Blood Urine UA 3+ (Negative); Protein Urine UA 2+ (Negative); Specific Gravity Urine UA 1.025 (1.000-1.035)
[2023-09-22 09:40] LABS: pH Urine UA 5.5 (4.5-8.0)
[2023-09-22 09:41] LABS: Urine Volume 10mL (spun)
[2023-09-22 09:42] LABS: RBC Urine 30-100/HPF (0-5/HPF)
[2023-09-22 09:43] LABS: Bacteria Urine Many (>30); Culture Indicated Urine Specimen Cultured; Squamous Epithelial Cell Urine 0-1 /HPF (0-5/HPF); WBC Urine 10-30/HPF (0-5/HPF)
== END ==
PROVIDERS: Family Provider Family Medicine; PCP Family Medicine; Visit Provider Registered Nurse
DX: R39.9 Unspecified symptoms and signs involving the genitourinary system (principal)
CPT/HCPCS: 81001; 87077; 87086; 87186

== ENCOUNTER → 2023-11-13 12:59 | Outpatient (CLI) | payer OTHER, SELFPAY ==
[2021-11-19 16:03] VITALS: BMI 37.5
== END ==
PROVIDERS: Family Provider Family Medicine; PCP Family Medicine; Visit Provider Nurse Practitioner Family
DX: R30.0 Dysuria (principal)
CPT/HCPCS: 87086

== ENCOUNTER → 2023-11-19 12:06 | Outpatient (CLI) | payer OTHER, SELFPAY ==
[2023-11-17 11:04] VITALS: BMI 37.5
--- NOTE | 2023-11-19 12:07 | DI.US.S_ITS ---
PROCEDURE: US PELVIC COMPLETE INDICATIONS: PMB TECHNIQUE: Real-time scanning was performed of the pelvic organs, with image documentation. Additional endovaginal scanning was necessary due to incomplete visualization of the adnexal and endometrial structures by transabdominal scanning. COMPARISON: None. FINDINGS: Uterus: Uterus is anteverted and normal in size at 5.4 x 2.3 x 3.5 cm. The myometrium is homogeneous. The endometrium measures 4.6 mm combined thickness. A homogeneous isoechoic mass is present within the anterior wall of the cervix which measures 1.6 x 1.4 x 2.2 cm. Ovaries: The ovaries are not visualized. Other: No pathologic free abdominal or pelvic fluid. IMPRESSION: 1. Isoechoic, vascular cervical mass. Further characterization is warranted with direct visualization and/or gynecologic protocol MRI. Neoplasm cannot be excluded. 2. No thickening of the endometrial complex to suggest endometrial hyperplasia or neoplasm. We strive to produce accurate, complete, and clear reports of imaging services. To assist us in improving patient care, this report was composed using standard report templates and voice recognition software. Therefore, it may contain abnormal punctuation, insertions and/or omissions. Occasional wrong-word or sound-alike substitutions may occur. Though we review the report and make efforts to correct it, we do recommend that the report be read carefully in proper context to recognize any text inaccuracies. Dictated by: Madison Brooks M.D. on 11/19/2023 at 13:33 Approved by: Madison Brooks M.D. on 11/19/2023 at 13:40
== END ==
LOC: US 12:06
PROVIDERS: Family Provider Family Medicine; PCP Family Medicine; Referring Provider Obstetrics & Gynecology; Visit Provider Obstetrics & Gynecology
DX: N95.0 Postmenopausal bleeding (principal); N88.9 Noninflammatory disorder of cervix uteri, unspecified
CPT/HCPCS: 76830; 76856

== ENCOUNTER 2023-12-04 06:42 | Day surgery (SDC) | payer OTHER, SELFPAY ==
[2023-11-25 16:04] VITALS: BMI 37.5
[2023-12-03 10:44] VITALS: BMI 40.4
[2023-12-04 07:19] VITALS: BP 130/79; PULSE 63; RESP 16; TEMP 36.5; O2SAT 94; BMI 39.1
[2023-12-04] MEDS: LACTATED RINGERS 1,000 ML 42 ML IV (07:25)
[2023-12-04] MEDS: ACETAMINOPHEN 325 MG TABLET 975 MG PO (07:27)
--- NOTE | 2023-12-04 07:34 | SUR.OPER ---
Lithotomy on padded OR bed, head on pillow, arms secured on padded arm boards at <90 degrees abduction. Legs secured in padded yellow fins stirrups.
--- NOTE | 2023-12-04 07:57 | PM.PREOP ---
Pre-operative Note COVID-19 COVID-19 status: Not tested Interval Note History & Physical reviewed/Exam performed by Physician: Yes Changes to H&P: No
[2023-12-04] MEDS: FERRIC SUBSULFATE 8 ML SOLUTION 2 ML TOP (08:43)
[2023-12-04 08:50] VITALS: BP 121/65; PULSE 90; RESP 26; TEMP 36.7; O2SAT 93
[2023-12-04 08:55] VITALS: BP 121/65; PULSE 59; RESP 24; O2SAT 93
[2023-12-04 09:00] VITALS: BP 123/60; PULSE 60; RESP 12; O2SAT 95
[2023-12-04 09:05] VITALS: BP 130/60; PULSE 54; RESP 14; TEMP 36.7; O2SAT 95
--- NOTE | 2023-12-04 09:07 | PM.GYNOP.1 ---
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 Patient has been having symptoms suggestive of a UTI but urinalyses/cultures have been negative for UTI. She was discovered to have some red cells in her urine and given her symptoms of pelvic ultrasound was obtained. In addition, patient states that for the last several months she has noted with Valsalva or even a strong cough that she passes a small amount of blood per vagina and even occasionally passes small clots. Pelvic ultrasound performed 11/19/2023 shows: FINDINGS: Uterus: Uterus is anteverted and normal in size at 5.4 x 2.3 x 3.5 cm. The myometrium is homogeneous. The endometrium measures 4.6 mm combined thickness. A homogeneous isoechoic mass is present within the anterior wall of the cervix which measures 1.6 x 1.4 x 2.2 cm. Ovaries: The ovaries are not visualized. Other: No pathologic free abdominal or pelvic fluid. IMPRESSION: 1. Isoechoic, vascular cervical mass. Further characterization is warranted with direct visualization and/or gynecologic protocol MRI. Neoplasm cannot be excluded. 2. No thickening of the endometrial complex to suggest endometrial hyperplasia or neoplasm. 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 Patient has marked cervical stenosis which precludes in-office ECC to evaluate the endocervical canal and is instead now undergoing LEEP procedure with fractional dilation and curettage. She presents today for her scheduled surgery. Surgeon: Moisés Holloway Anesthesia Type: General Operative Notes Findings: The vagina and portio of the cervix are atrophic. The external cervical os is closed and can not be dilated even with the smallest available dilators/probes. The surface of the portio is contiguous with the skin of the fornices therefore a small LEEP electrode was selected for performance of the LEEP so as to afford access to the endocervical canal for curettage. Abundant ECC noted and submitted as separate specimen. Moderate EMC specimen also obtained. Closure Type: not applicable Specimen(s): endometrial curettings and other (LEEP cone cut at 12:00, endocervical curettings) Estimated blood loss (mL): 25 Blood products transfused: none Procedure in detail: With the patient under satisfactory general anesthesia in the modified dorsal lithotomy position, the perineum and lower abdomen were prepped and draped in the usual manner for LEEP. A pre-surgical safety time-out was then taken in accordance with [facility] Main OR protocols. An insulated speculum was then inserted in the vagina and the cervix visualized. An insulated tenaculum was then applied to the anterior lip of the cervix and using a 10 x 15 mm LEEP electrode, a LEEP cone was obtained using 60 w of pure cut power. The specimen was cut at 12:00 p.m. and submitted in formalin. Access to the endocervical canal was easily achieved and sharp curettage of the canal accomplished. Abundant amounts of tissue were obtained from the endocervical canal and submitted as a separate specimen in formalin. Sharp curettage of the endometrial cavity which sounded to 7 cm was then accomplished with a separate endometrial curettage specimen submitted in formalin for pathologic evaluation. Electrocautery was then applied to the cone bed along with Monsel's solution to achieve complete hemostasis. The procedure was then terminated by removal of the speculum from the vagina. Patient was then awakened and transferred to the PACU for a period of observation and recovery after having tolerated the procedure well. Complications: none Post-operative Condition: stable Disposition: PACU Plan for aftercare: Routine PACU care and follow-up.
[2023-12-04 09:12] VITALS: BP 128/61; PULSE 54; RESP 15; TEMP 36.7; O2SAT 96
[2023-12-04] MEDS: TRAMADOL 50 MG TABLET 100 MG PO (09:27)
== END 2023-12-04 09:37 | disposition home or self-care (01) ==
PROVIDERS: Family Provider Family Medicine; PCP Family Medicine; Referring Provider Obstetrics & Gynecology; Visit Provider Obstetrics & Gynecology
PROC: 0UDB8ZZ Extraction of Endometrium, Via Natural or Artificial Opening Endoscopic (ICD-10-PCS; CPT 58558; principal; 2023-12-04 07:45)
DX: N88.8 Other specified noninflammatory disorders of cervix uteri (principal); N88.2 Stricture and stenosis of cervix uteri; N95.2 Postmenopausal atrophic vaginitis
CPT/HCPCS: 57522; 57505; A9270; J1100; J1885; J2405; J2704

== ENCOUNTER → 2023-12-31 07:15 | Outpatient (CLI) | payer OTHER, SELFPAY ==
[2023-11-25 16:04] VITALS: BMI 37.5
[2023-12-31 08:08] LABS: Add Manual Diff / Slide Review NO; Basophils Absolute Auto 0 /uL (0-100); Basophils Percent Auto 0.8 % (0-2); Eosinophils Absolute Auto 100 /uL (0-450); Eosinophils Percent Auto 2.4 % (2-4); Hematocrit 43.5 % (36-46); Hemoglobin 14.7 g/dL (12.0-16.0); Lymphocytes Absolute Auto 1100 /uL (1100-4500); Lymphocytes Percent Auto 22.3 % (25-40); Mean Corpuscular HGB Conc 33.8 % (30-36); Mean Corpuscular Hemoglobin 30.8 PG (26-34); Mean Corpuscular Volume 91.1 fL (80-100); Monocytes Absolute Auto 600 /uL (0-900); Monocytes Percent Auto 11.3 % (3-14); Neutrophils Absolute Auto 3100 /uL (1500-7000); Neutrophils Percent Auto 63.2 % (50-75); Platelet Count 221 X10^3/uL (150-400); Red Blood Cell Count 4.78 X10^6/uL (4.0-5.2); Red Cell Distribution Width 14.3 % (11.6-14.8)
[2023-12-31 08:39] LABS: Alanine Aminotransferase 51 IU/L (<35); Albumin 4.1 g/dL (3.5-5.0); Albumin Globulin Ratio 1.7 (1.0-2.8); Alkaline Phosphatase 101 U/L (38-126); Aspartate Aminotransferase 41 IU/L (14-36); BUN Creatinine Ratio 17.4 (6-22); Bilirubin Total 0.7 mg/dL (0.2-1.3); Blood Urea Nitrogen 12 mg/dL (7-17); Calcium 9.1 mg/dL (8.4-10.2); Carbon Dioxide 22 mmol/L (22-32); Chloride 109 mmol/L (98-107); Cholesterol 225 mg/dL (140-199); Estimated Glomerular Filt Rate > 60 mL/min (>60); Globulin 2.4 g/dL (1.7-4.1); Glucose 118 mg/dL (80-110); HDL Cholesterol 59 mg/dL (40-60); HEMOLYSIS < 15 (0-50); LDL Cholesterol Calculated 123 mg/dL (<100); Potassium 4.3 mmol/L (3.4-5.1); Sodium 138 mmol/L (137-145); Total Protein 6.5 g/dL (6.3-8.2); Triglycerides 216 mg/dL (35-150)
== END ==
PROVIDERS: Family Provider Family Medicine; PCP Family Medicine; Referring Provider Family Medicine; Visit Provider Family Medicine
DX: I10 Essential (primary) hypertension (principal); E78.5 Hyperlipidemia, unspecified; Z68.38 Body mass index [BMI] 38.0-38.9, adult
CPT/HCPCS: 36415; 80053; 80061; 84443; 85025

== ENCOUNTER → 2024-01-06 14:02 | Outpatient (CLI) | payer OTHER, SELFPAY ==
[2023-11-25 16:04] VITALS: BMI 37.5
--- NOTE | 2024-01-06 14:03 | DI.RAD.S_ITS ---
PROCEDURE: XR DEXA AXIAL SKELETON INDICATIONS: osteopenia COMPARISON: [facility], PARISA, XR DEXA AXIAL SKELETON, 06/29/2018, 15:35. FINDINGS: Lumbar Spine: Spine mineral density < 0.909 g/cm2, T score -1.3 Left Hip: Bone mineral density < 0.949 g/cm2, T score < 0.1, compared to -0.7 Left Femoral Neck: Bone mineral density 0.795 g/cm2, T score -0.5 , compared to -1.2 Right Hip: Bone mineral density 0.818 g/cm2, T score -1.0 , compared to -1.4 Right Femoral Neck: Bone mineral density 0.695 g/cm2, T score -4.4, compare through -1.8 Fracture Risk Calculation (when applicable): 10-year fracture risk of a major osteoporotic fracture 7.5% and of a hip fracture 0.7%. (T score greater or equal to -1.0 to: NORMAL) (T score from -1.1 to -2.4: OSTEOPENIA) (T score less than or equal to -2.5: OSTEOPOROSIS) IMPRESSION: There is osteopenia of the lumbar spine, left femoral neck and right hip. Follow-up guidelines as follows: Osteoporosis: Consider a repeat DEXA and Vertebral Fracture Assessment (VFA) exam in 2 years or sooner if medically necessary, to reassess this patient's status. Osteopenia: Consider a repeat DEXA in 2-3 years to reassess this patient's status, or if there is a new clinical indication. Normal: Consider a repeat DEXA in 5 years or sooner, or if there is a new clinical indication. All treatment decisions require clinical judgment and consideration of individual patient factors, including patient preferences, comorbidities, previous drug use, risk factors not captured in the FRAX model (e.g., frailty, falls, vitamin D deficiency, increased bone turnover, interval significant decline in bone density ) and possible under- or over-estimation of fracture risk by FRAX. In addition, the NOF Guide recommends that FDA-approved medical therapies be considered in postmenopausal women and men age >= 50 years with a: * Hip or vertebral (clinical or morphometric) fracture * T-score of <=-2.5 at the spine or hip * Ten-year fracture probability by FRAX of >= 3% for hip fracture or >=20% for major osteoporotic fracture. People with diagnosed cases of osteoporosis or at high risk for fracture should have regular bone mineral density tests. For patients eligible for Medicare, routine testing is allowed once every 2 years. The testing frequency can be increased to one year for patients who have rapidly progressing disease, those who are receiving or discontinuing medical therapy to restore bone mass, or have additional risk factors. Dictated by: Lamont Mehta M.D. on 01/07/2024 at 7:59 Approved by: Lamont Mehta M.D. on 01/07/2024 at 8:16
== END ==
LOC: RAD 14:02
PROVIDERS: Family Provider Family Medicine; PCP Family Medicine; Referring Provider Family Medicine; Visit Provider Family Medicine
DX: M85.89 Other specified disorders of bone density and structure, multiple sites (principal)
CPT/HCPCS: 77080

== ENCOUNTER → 2024-02-25 13:57 | Outpatient (CLI) | payer OTHER, SELFPAY ==
[2023-11-25 16:04] VITALS: BMI 37.5
[2024-02-25 14:27] LABS: Hematocrit 35.8 % (36-46); Hemoglobin 12.3 g/dL (12.0-16.0); Mean Corpuscular HGB Conc 34.4 % (30-36); Mean Corpuscular Hemoglobin 31.3 PG (26-34); Mean Corpuscular Volume 91.1 fL (80-100); Platelet Count 357 X10^3/uL (150-400); Red Blood Cell Count 3.93 X10^6/uL (4.0-5.2); Red Cell Distribution Width 14.7 % (11.6-14.8); White Blood Cell Count 6.9 X10^3/uL (4.5-11.0)
[2024-02-25 14:39] LABS: Hemoglobin A1C% w Est Avg Glu 5.5 % (4.0-6.0)
[2024-02-25 14:52] LABS: Alanine Aminotransferase 53 IU/L (<35); Albumin 4.5 g/dL (3.5-5.0); Albumin Globulin Ratio 1.7 (1.0-2.8); Alkaline Phosphatase 223 U/L (38-126); Aspartate Aminotransferase 54 IU/L (14-36); BUN Creatinine Ratio 19.3 (6-22); Bilirubin Total 0.6 mg/dL (0.2-1.3); Blood Urea Nitrogen 16 mg/dL (7-17); Calcium 9.5 mg/dL (8.4-10.2); Carbon Dioxide 26 mmol/L (22-32); Chloride 99 mmol/L (98-107); Cholesterol 206 mg/dL (140-199); Estimated Glomerular Filt Rate > 60 mL/min (>60); Globulin 2.7 g/dL (1.7-4.1); Glucose 129 mg/dL (80-110); HDL Cholesterol 60 mg/dL (40-60); HEMOLYSIS < 15 (0-50); LDL Cholesterol Calculated 112 mg/dL (<100); Potassium 3.8 mmol/L (3.4-5.1); Sodium 137 mmol/L (137-145); Total Protein 7.2 g/dL (6.3-8.2); Triglycerides 169 mg/dL (35-150)
== END ==
PROVIDERS: Family Provider Family Medicine; PCP Family Medicine; Referring Provider Family Medicine; Visit Provider Family Medicine
DX: E78.5 Hyperlipidemia, unspecified (principal); R73.01 Impaired fasting glucose; D62 Acute posthemorrhagic anemia; R74.01 Elevation of levels of liver transaminase levels; Z68.38 Body mass index [BMI] 38.0-38.9, adult
CPT/HCPCS: 36415; 80053; 80061; 83036; 85027

== ENCOUNTER → 2024-03-27 09:11 | Outpatient (CLI) | payer OTHER, SELFPAY ==
[2023-11-25 16:04] VITALS: BMI 37.5
--- NOTE | 2024-03-27 09:12 | DI.RAD.S_ITS ---
PROCEDURE: XR KNEE RT 3V INDICATIONS: Knee pain, h/o partial repair TECHNIQUE: Three views of the knee were acquired. COMPARISON: X-ray right knee 01/22/2022, prior report is not available. FINDINGS: Again noted is right knee medial compartment hemiarthroplasty unchanged without periprosthetic fracture or lucency. Moderate degenerative changes of the patellofemoral and lateral compartment again noted unchanged with joint space narrowing and osteophytes. No radiographic evidence of fracture, dislocation, knee joint effusion or high attenuation soft tissue foreign body. IMPRESSION: Degenerative changes as described above unchanged. If symptoms persist or worsen, MRI could be performed. Dictated by: Josr Renee M.D. on 03/29/2024 at 10:53 Approved by: Josr Renee M.D. on 03/29/2024 at 10:56
== END ==
PROVIDERS: Family Provider Family Medicine; PCP Family Medicine; Referring Provider Family Medicine; Visit Provider Family Medicine
DX: M25.561 Pain in right knee (principal)
CPT/HCPCS: 73562

== ENCOUNTER → 2024-05-14 16:08 | Outpatient (CLI) | payer OTHER, SELFPAY ==
[2023-11-25 16:04] VITALS: BMI 37.5
[2024-05-14 17:42] LABS: Hematocrit 29.7 % (36-46); Hemoglobin 10.5 g/dL (12.0-16.0); Mean Corpuscular HGB Conc 35.4 % (30-36); Mean Corpuscular Hemoglobin 30.7 PG (26-34); Mean Corpuscular Volume 86.8 fL (80-100); Platelet Count 147 X10^3/uL (150-400); Red Blood Cell Count 3.42 X10^6/uL (4.0-5.2); Red Cell Distribution Width 15.6 % (11.6-14.8); White Blood Cell Count 2.2 X10^3/uL (4.5-11.0)
[2024-05-14 18:07] LABS: Magnesium 1.9 mg/dL (1.6-2.3)
[2024-05-14 18:22] LABS: Add Manual Diff / Slide Review SLIDE REVIEW; RBC Morphology Normal Morphology
== END ==
PROVIDERS: Family Provider Family Medicine; PCP Family Medicine; Referring Provider Internal Medicine Hematology & Oncology; Visit Provider Internal Medicine Hematology & Oncology
DX: C53.9 Malignant neoplasm of cervix uteri, unspecified (principal)
CPT/HCPCS: 36415; 83735; 85025

== ENCOUNTER → 2024-06-03 13:32 | Outpatient (CLI) | payer OTHER, SELFPAY ==
[2023-11-25 16:04] VITALS: BMI 37.5
[2024-06-03 14:30] LABS: Add Manual Diff / Slide Review NO; Basophils Absolute Auto 100 /uL (0-100); Basophils Percent Auto 0.7 % (0-2); Eosinophils Absolute Auto 100 /uL (0-450); Eosinophils Percent Auto 1.3 % (2-4); Hematocrit 33.2 % (36-46); Hemoglobin 11.5 g/dL (12.0-16.0); Lymphocytes Absolute Auto 600 /uL (1100-4500); Lymphocytes Percent Auto 7.1 % (25-40); Mean Corpuscular HGB Conc 34.6 % (30-36); Mean Corpuscular Hemoglobin 31.5 PG (26-34); Mean Corpuscular Volume 91.1 fL (80-100); Monocytes Absolute Auto 800 /uL (0-900); Neutrophils Absolute Auto 6800 /uL (1500-7000); Neutrophils Percent Auto 80.9 % (50-75); Platelet Count 230 X10^3/uL (150-400); Red Blood Cell Count 3.65 X10^6/uL (4.0-5.2); Red Cell Distribution Width 21.5 % (11.6-14.8); White Blood Cell Count 8.4 X10^3/uL (4.5-11.0)
== END ==
PROVIDERS: Family Provider Family Medicine; PCP Family Medicine; Referring Provider Family Medicine; Visit Provider Family Medicine
DX: D64.81 Anemia due to antineoplastic chemotherapy (principal); T45.1X5A Adverse effect of antineoplastic and immunosuppressive drugs, initial encounter
CPT/HCPCS: 85025

== ENCOUNTER 2024-06-21 12:31 | Day surgery (SDC) | payer OTHER, SELFPAY ==
[2024-06-07 15:06] VITALS: BMI 37.5
[2024-06-21 12:53] VITALS: BP 148/67; PULSE 89; RESP 16; TEMP 36.2; O2SAT 98
--- NOTE | 2024-06-21 13:39 | PM.HP.1 ---
History of Present Illness History of Present Illness Date Patient Seen: 06/21/24 Time Patient Seen: 13:39 Chief complaint: Screening Colonoscopy Narrative: 63-year-old white female presents for subsequent screening colonoscopy. Previous colonoscopy 10 years ago did not have any abnormalities. [facility] Medical History (Updated 06/21/24 @ 13:41 by Jun Thomson MD) Colon cancer screening (~06/21/24) Malaise and fatigue Antineoplastic chemotherapy induced anemia Hearing loss Anemia associated with acute blood loss Transaminitis Weight gain Functional memory problem Degenerative disc disease at L5-S1 level Chest pain ADHD (attention deficit hyperactivity disorder), combined type Irritable bowel syndrome with alternating bowel habits Skin lesions Breast pain, left Lumbar radiculopathy, chronic Chronic thoracic back pain Facial eczema Cervical radiculopathy Body posture problem Seborrheic keratoses Actinic keratosis of right side of forehead Acute pain of left shoulder Greater trochanteric bursitis of left hip Lumbar region somatic dysfunction Thoracic region somatic dysfunction Iliotibial band syndrome of both sides Bilateral lower extremity edema Neurogenic thoracic outlet syndrome of both brachial plexuses Strain of gluteus medius of right lower extremity Right knee pain Left shoulder strain Prinzmetal angina Hyperlipidemia History of exertional chest pain Nonsustained paroxysmal supraventricular tachycardia Palpitations with regular cardiac rhythm Postmenopausal Insomnia Vasomotor flushing Thoracic region somatic dysfunction Hot flashes Rosacea Superficial laceration Segmental and somatic dysfunction of upper extremity Bilateral carpal tunnel syndrome Pelvic somatic dysfunction Segmental and somatic dysfunction of sacral region Segmental and somatic dysfunction of lumbar region Segmental and somatic dysfunction of rib cage Segmental and somatic dysfunction of abdomen and other regions Cervical somatic dysfunction Cranial somatic dysfunction Neck stiffness Bilateral hand numbness Chronic diarrhea BMI 38.0-38.9,adult Osteopenia (04/2016) Nocturnal hypoxia (Unknown) Migraines (Unknown) Surgical History History of loop electrical excision procedure (LEEP) History of loop electrical excision procedure (LEEP) History of appendectomy S/P ACL reconstruction (1987) Status post cholecystectomy Family History Brother Age: 70 Diabetes mellitus Mother Smoker Social History household members: spouse Smoking Status: Never smoker second hand exposure: No alcohol intake: current substance use type: does not use Meds Home Medications and Allergies Home Medications Medication Instructions Recorded Confirmed Type melatonin 10 mg capsule 25 mg PO BEDTIME 06/11/19 06/03/24 History nitroglycerin 0.4 mg sublingual 0.4 mg sublingual Q5M PRN chest 11/30/21 06/03/24 Rx tablet (Nitrostat) pain #10 tabs tacrolimus 0.1 % topical ointment 1 applic topical DAILY #30 grams 03/10/22 06/03/24 Rx clobetasol 0.05 % scalp solution 1 applic topical itch 01/02/23 06/03/24 History clobetasol 0.05 % topical cream 1 applic topical BID 01/02/23 06/03/24 History ketoconazole 2 % shampoo topical 01/02/23 06/03/24 History triamcinolone acetonide 0.1 % 1 applic topical BID PRN rash #30 02/21/23 06/03/24 Rx topical cream grams chlorthalidone 25 mg tablet 25 mg PO DAILY blood 08/05/23 06/03/24 Rx pressure/swelling #90 tabs cyclobenzaprine 10 mg tablet 10 mg PO 3XD PRN for muscle spasm 08/29/23 06/03/24 Rx #90 tabs gabapentin 100 mg capsule 200 mg PO BEDTIME 11/19/23 06/03/24 History ketoconazole 2 % topical cream 1 applic topical BID #60 grams 11/19/23 06/03/24 Rx rosuvastatin 40 mg tablet 40 mg PO DAILY #90 tabs 02/25/24 06/03/24 Rx zolmitriptan 5 mg tablet 5 mg PO .COMPLEX PRN migraine 02/25/24 06/03/24 Rx headache #12 tabs hydroxyzine HCl 10 mg tablet 20 mg (2 x 10 mg) PO BEDTIME #180 03/22/24 06/03/24 Rx tabs trazodone 50 mg tablet See Rx Instructions .Route 03/22/24 06/03/24 Rx .COMPLEX #180 tabs tramadol 50 mg tablet 50 mg PO BID PRN pain #60 tabs 04/20/24 06/03/24 Rx dextroamphetamine-amphetamine 5 mg 10 mg (2 x 5 mg) PO BID #120 tabs 05/14/24 06/03/24 Rx tablet magnesium oxide 240 mg PO BEDTIME 05/14/24 06/03/24 History meloxicam 15 mg tablet 15 mg PO DAILY #90 tabs 05/14/24 06/03/24 Rx rosuvastatin 20 mg tablet 40 mg PO DAILY 05/14/24 06/03/24 History DISABLED PARKING PERMIT #1 ea 05/31/24 06/03/24 Rx lidocaine 5 % topical patch 2 patch topical DAILY #180 ea 06/03/24 06/03/24 Rx nadolol 20 mg tablet 20 mg PO ONCE #90 tabs 06/03/24 06/03/24 Rx peg 3350-electrolytes 236 240 ml PO Q10M #4,000 mL 06/11/24 Rx gram-22.74 gram-6.74 gram-5.86 gram solution (Golytely) Allergies Allergy/AdvReac Type Severity Reaction Status Date / Time nickel [NICKEL] Allergy Severe SEVERE PAIN Verified 06/03/24 09:05 amoxicillin [AMOXICILLIN] Allergy Intermediate HIVES Verified 06/03/24 09:05 FROM HEAD TO TOE AND EVERY IN BETWEEN bupivacaine [From MARCAINE] Allergy Intermediate HIVES Verified 06/03/24 09:05 FROM HEAD TO TOE AND EVERYWHERE IN BETWEEN neomycin [NEOMYCIN] Allergy Intermediate HIVES Verified 06/03/24 09:05 FROM HEAD TO TOE AND EVERYWHERE IN BETWEEN oxycodone AdvReac Vomiting Verified 06/03/24 09:05 linalool AdvReac Intermediate Rash Uncoded 06/03/24 09:05 Review of Systems Review of Systems ROS: Yes All systems reviewed with the patient and are negative except as otherwise documented Exam Vital Signs (past 8 hours): - 06/21/24 12:53 Temperature 97.2 F L Pulse Rate 89 Respiratory Rate 16 Blood Pressure 148/67 H Pulse Oximetry 98 Oxygen Delivery Method Room Air Oxygen Delivery Method Room Air Narrative Exam Narrative: Gen: NAD, sitting comfortably in bed, appears well HEENT: Sclera are anicteric, head is normocephalic and atraumatic, trachea is midline. CV: RRR, no JVD Resp: clear to auscultation bilaterally, equal chest wall movement bilaterally Abd: soft, nontender, normoactive bowel sounds Ext: no edema, full range of motion Neuro: Cranial nerves II-XII grossly intact, no focal deficits Skin: No erythema or ecchymosis Assessment & Plan Assessment and plan (1) Colon cancer screening: Status: Acute Assessment & Plan narrative: Patient presents for colonoscopy Risks, benefits, alternatives to colonoscopy explained, including but not limited to bowel perforation or other serious complication requiring surgery at less than 1 in 5000 colonoscopies, abdominal pain, cramping or bleeding and less than 1% of colonoscopies, and the chances that we find a diagnosis that would require further intervention of about 2%. Patient agrees to proceed. Time-Based Coding :: [TOTAL MINUTES] spent with patient and on the chart (including review of chart, obtaining history, exam, reviewing outside data, placing orders, documenting exam and treatment plan, and counseling patient) on [DATE].
--- NOTE | 2024-06-21 14:06 | PM.OP.COLON ---
Operative Date/Time/Diagnoses Date of procedure: 06/21/24 Time of procedure: 14:06 Pre-op diagnosis: Colon screening Post-op diagnosis: same Procedure & Clinicians Study performed: Colonoscopy Same procedure as scheduled: Yes (:) Indications: Colon screening Surgeon: Jun Thomson Procedure Notes SCOAP/Timeout: Performed Procedure in detail: Time-out was performed. Mac was induced. Patient was placed in left lateral decubitus position. The perineum was inspected without any gross abnormality. Lubricated pediatric colonoscope was inserted and advanced to the cecum. The terminal ileum was intubated. The colonoscope was withdrawn slowly inspecting the circumference of the colon. Very small polyps may have been missed, prep quality was adequate. Retroflexed view of the rectum showed small, non prolapsed nonbleeding internal hemorrhoids. The scope was withdrawn the patient was taken to PACU in good condition. Scope withdrawal time: 6 Sedation minutes: 12 Findings: internal hemorrhoids Specimen(s): none sent Complications: none Post-procedure Recommendations: Colonoscopy in 10 years Follow up: as needed Disposition: PACU
[2024-06-21 14:09] VITALS: BP 119/63; PULSE 72; RESP 13; TEMP 35.4; O2SAT 98
[2024-06-21 14:14] VITALS: BP 119/63; PULSE 74; RESP 22; O2SAT 97
[2024-06-21 14:19] VITALS: BP 111/73; PULSE 73; RESP 13; O2SAT 98
[2024-06-21 14:22] VITALS: BP 111/73; PULSE 73; RESP 18; O2SAT 97
== END 2024-06-21 14:42 | disposition home or self-care (01) ==
PROVIDERS: Family Provider Family Medicine; PCP Family Medicine; Referring Provider Surgery; Visit Provider Surgery
PROC: 0DJD8ZZ Inspection of Lower Intestinal Tract, Via Natural or Artificial Opening Endoscopic (ICD-10-PCS; CPT 45378; principal; 2024-06-21 13:45)
DX: Z12.11 Encounter for screening for malignant neoplasm of colon (principal); K64.8 Other hemorrhoids; F90.2 Attention-deficit hyperactivity disorder, combined type; E78.5 Hyperlipidemia, unspecified; I10 Essential (primary) hypertension; G47.33 Obstructive sleep apnea (adult) (pediatric); Z85.41 Personal history of malignant neoplasm of cervix uteri
CPT/HCPCS: G0121; J2405; J2704

== ENCOUNTER → 2024-06-29 08:09 | Outpatient (CLI) | payer OTHER, SELFPAY ==
[2024-06-07 15:06] VITALS: BMI 37.5
--- NOTE | 2024-06-29 08:10 | DI.MG.S_ITS ---
BILATERAL DIGITAL SCREENING MAMMOGRAM 3D/2D WITH CAD: 06/29/2024 CLINICAL: Routine screening. Comparison is made to exams dated: 06/21/2023 mammogram, 11/20/2022 mammogram, 06/15/2022 mammogram, and 02/10/2021 mammogram - [facility]. There are scattered areas of fibroglandular density (category b / 25%-50% glandular tissue). Current study was also evaluated with a Computer Aided Detection (CAD) system. No significant masses, calcifications, or other findings are seen in either breast. There has been no significant interval change. IMPRESSION: NEGATIVE There is no mammographic evidence of malignancy. A 1 year screening mammogram is recommended. Based on the Tyrer Cuzick model (a risk assessment model) the patient's lifetime risk is 6.0% and her 10 year risk is 2.7%. According to the ACR, ACS, and NCCN guidelines, an annual breast MRI exam along with mammogram is recommended if the patient's lifetime risk is 20% or greater. This exam was interpreted at Station ID: [id number]. NOTE: For mammograms, a report in lay terms will be sent to the patient. Approximately 15% of breast malignancies will not be visualized mammographically. In the management of a palpable breast mass, a negative mammogram must not discourage biopsy of a clinically suspicious lesion. Electronically Signed By: Benja paniagua/pro:06/29/2024 09:08:22 letter sent: Normal Exam ACR BI-RADS Category 1: Negative
== END ==
PROVIDERS: Family Provider Family Medicine; PCP Family Medicine; Referring Provider Family Medicine; Visit Provider Family Medicine
DX: Z12.31 Encounter for screening mammogram for malignant neoplasm of breast (principal)
CPT/HCPCS: 77063; 77067

== ENCOUNTER → 2024-06-30 10:56 | Outpatient (CLI) | payer OTHER, SELFPAY ==
[2024-06-07 15:06] VITALS: BMI 37.5
[2024-06-30 13:45] LABS: Add Manual Diff / Slide Review NO; Basophils Absolute Auto 0 /uL (0-100); Basophils Percent Auto 0.4 % (0-2); Eosinophils Absolute Auto 300 /uL (0-450); Eosinophils Percent Auto 6.3 % (2-4); Hematocrit 35.9 % (36-46); Hemoglobin 12.2 g/dL (12.0-16.0); Lymphocytes Absolute Auto 600 /uL (1100-4500); Lymphocytes Percent Auto 10.5 % (25-40); Mean Corpuscular Hemoglobin 31.7 PG (26-34); Mean Corpuscular Volume 93.2 fL (80-100); Monocytes Absolute Auto 400 /uL (0-900); Monocytes Percent Auto 7.7 % (3-14); Neutrophils Absolute Auto 4100 /uL (1500-7000); Neutrophils Percent Auto 75.1 % (50-75); Platelet Count 140 X10^3/uL (150-400); Red Blood Cell Count 3.86 X10^6/uL (4.0-5.2); Red Cell Distribution Width 18.1 % (11.6-14.8); White Blood Cell Count 5.5 X10^3/uL (4.5-11.0)
== END ==
PROVIDERS: Family Provider Family Medicine; PCP Family Medicine; Referring Provider Family Medicine; Visit Provider Family Medicine
DX: D64.81 Anemia due to antineoplastic chemotherapy (principal); T45.1X5A Adverse effect of antineoplastic and immunosuppressive drugs, initial encounter
CPT/HCPCS: 36415; 85025

== ENCOUNTER → 2024-08-19 11:16 | Outpatient (CLI) | payer OTHER, SELFPAY ==
[2024-06-07 15:06] VITALS: BMI 37.5
[2024-08-19 12:39] LABS: Add Manual Diff / Slide Review NO; Basophils Absolute Auto 0 /uL (0-100); Basophils Percent Auto 0.5 % (0-2); Eosinophils Absolute Auto 100 /uL (0-450); Eosinophils Percent Auto 2.5 % (2-4); Hematocrit 39.6 % (36-46); Hemoglobin 13.5 g/dL (12.0-16.0); Lymphocytes Absolute Auto 600 /uL (1100-4500); Lymphocytes Percent Auto 11.8 % (25-40); Mean Corpuscular HGB Conc 34.1 % (30-36); Mean Corpuscular Hemoglobin 30.7 PG (26-34); Monocytes Absolute Auto 500 /uL (0-900); Monocytes Percent Auto 8.4 % (3-14); Neutrophils Absolute Auto 4200 /uL (1500-7000); Neutrophils Percent Auto 76.8 % (50-75); Platelet Count 193 X10^3/uL (150-400); Red Cell Distribution Width 14.1 % (11.6-14.8); White Blood Cell Count 5.5 X10^3/uL (4.5-11.0)
== END ==
PROVIDERS: Family Provider Family Medicine; PCP Family Medicine; Referring Provider Family Medicine; Visit Provider Family Medicine
DX: R53.83 Other fatigue (principal); T45.1X5A Adverse effect of antineoplastic and immunosuppressive drugs, initial encounter; D64.81 Anemia due to antineoplastic chemotherapy; R53.81 Other malaise; Z92.21 Personal history of antineoplastic chemotherapy
CPT/HCPCS: 36415; 85025

== ENCOUNTER → 2024-09-27 09:09 | Outpatient (CLI) | payer OTHER, SELFPAY ==
[2024-06-07 15:06] VITALS: BMI 37.5
--- NOTE | 2024-09-27 09:10 | DI.RAD.S_ITS ---
PROCEDURE: XR CERVICAL SPINE 4V OR 5V INDICATIONS: NECK PAIN TECHNIQUE: 5 views of the cervical spine acquired. COMPARISON: [facility], CR, XR CERVICAL SPINE 2V OR 3V, 06/21/2022, 15:34. FINDINGS: Bones: No fractures or dislocations to the T1 level. Moderate to severe degenerative changes at C4-C5 and C5-C6. Findings slightly worsened compared to 2022. Uncovertebral joint hypertrophy. Oblique images demonstrate no bony foraminal stenoses. Soft tissues: No prevertebral soft tissue swelling. Right-sided port partially visualized. IMPRESSION: Moderate to severe degenerative changes in the cervical spine most pronounced at C4-C5. Slightly worsened compared to 2022. Dictated by: Sathish Kohler M.D. on 09/27/2024 at 9:43 Approved by: Sathish Kohler M.D. on 09/27/2024 at 9:47
--- NOTE | 2024-09-27 09:10 | DI.RAD.S_ITS ---
PROCEDURE: XR LUMBAR SPINE MIN 4V INDICATIONS: BACK PAIN TECHNIQUE: 5 views of the lumbar spine were acquired, including bilateral oblique views. COMPARISON: Outside Facility, CT, CT CHEST ABD PEL W CON, 04/02/2024, 11:58. Outside Film, MR, MR LUMBAR SPINE WITHOUT CONTRAST, 04/02/2024, 19:02. [facility], CR, XR LUMBAR SPINE FLEXION EXTENSION, 11/26/2023, 7:32. [facility], CR, XR LUMBAR SPINE 2 OR 3 VIEWS, 02/13/2023, 15:22. [facility], CR, XR LUMBAR SPINE 2-3V, 06/21/2022, 15:34. FINDINGS: Bones: 5 nonrib-bearing vertebrae are present. There is normal bony alignment. Mild degenerative changes. Lower lumbar spine facet joint hypertrophy. Disc space loss at L5-S1 versus L5 sacralization. No vertebral body compression fractures. No suspicious bony lesions. Soft tissues: Overlying bowel gas pattern is normal. Cholecystectomy clips and clips in the pelvis. No suspicious soft tissue calcifications. Oblique images: No pars defects. IMPRESSION: No compression fracture. Mild degenerative changes. L5 sacralization versus L5-S1 disc space height loss. Dictated by: Sathish Kohler M.D. on 09/27/2024 at 9:48 Approved by: Sathish Kohler M.D. on 09/27/2024 at 9:53
== END ==
PROVIDERS: Family Provider Family Medicine; PCP Family Medicine; Referring Provider Physical Medicine & Rehabilitation; Visit Provider Physical Medicine & Rehabilitation
DX: M51.26 Other intervertebral disc displacement, lumbar region (principal); M51.17 Intervertebral disc disorders with radiculopathy, lumbosacral region; M47.812 Spondylosis without myelopathy or radiculopathy, cervical region; M54.2 Cervicalgia
CPT/HCPCS: 72050; 72110

== ENCOUNTER → 2024-11-02 07:46 | Outpatient (CLI) | payer OTHER, SELFPAY ==
[2024-06-07 15:06] VITALS: BMI 37.5
[2024-11-02 08:21] LABS: Add Manual Diff / Slide Review NO; Basophils Absolute Auto 0 /uL (0-100); Basophils Percent Auto 0.4 % (0-2); Eosinophils Absolute Auto 100 /uL (0-450); Eosinophils Percent Auto 2.8 % (2-4); Hematocrit 38.9 % (36-46); Hemoglobin 13.2 g/dL (12.0-16.0); Lymphocytes Absolute Auto 600 /uL (1100-4500); Lymphocytes Percent Auto 14.7 % (25-40); Mean Corpuscular HGB Conc 33.9 % (30-36); Mean Corpuscular Hemoglobin 30.6 PG (26-34); Mean Corpuscular Volume 90.4 fL (80-100); Monocytes Absolute Auto 400 /uL (0-900); Monocytes Percent Auto 11.1 % (3-14); Neutrophils Absolute Auto 2700 /uL (1500-7000); Platelet Count 151 X10^3/uL (150-400); Red Blood Cell Count 4.31 X10^6/uL (4.0-5.2); Red Cell Distribution Width 16.3 % (11.6-14.8); White Blood Cell Count 3.9 X10^3/uL (4.5-11.0)
[2024-11-02 08:40] LABS: Alanine Aminotransferase 30 IU/L (<35); Albumin 4.6 g/dL (3.5-5.0); Albumin Globulin Ratio 1.8 (1.0-2.8); Alkaline Phosphatase 102 U/L (38-126); Aspartate Aminotransferase 36 IU/L (14-36); BUN Creatinine Ratio 28.6 (6-22); Bilirubin Total 0.6 mg/dL (0.2-1.3); Blood Urea Nitrogen 26 mg/dL (7-17); Calcium 9.9 mg/dL (8.4-10.2); Carbon Dioxide 27 mmol/L (22-32); Chloride 101 mmol/L (98-107); Estimated Glomerular Filt Rate > 60 mL/min (>60); Globulin 2.6 g/dL (1.7-4.1); Glucose 125 mg/dL (70-99); HEMOLYSIS < 15 (0-50); Potassium 4.4 mmol/L (3.4-5.1); Sodium 137 mmol/L (137-145); Total Protein 7.2 g/dL (6.3-8.2)
--- NOTE | 2024-11-02 09:29 | EKG_ITS ---
[facility] [address] [place] [address] Test Date: 2024-11-02 Pat Name: Joan Drummond Department: Room: Gender: Female Quality Assurance Nurse: : 1960 Requested By: Order Number: [id number] Reading MD: Angelito Echeverria Measurements Intervals [place] Rate: 67 P: 40 ME: 212 QRS: -35 QRSD: 94 T: 38 QT: 432 QTc: 456 Interpretive Statements Sinus rhythm with 1st degree AV block Left axis deviation Electronically Signed On 11-02-2024 14:01:31 PDT by Angelito Echeverria
== END ==
PROVIDERS: Family Provider Family Medicine; PCP Family Medicine; Referring Provider Family Medicine; Visit Provider Family Medicine
DX: R74.01 Elevation of levels of liver transaminase levels; D64.81 Anemia due to antineoplastic chemotherapy; R53.83 Other fatigue; T45.1X5A Adverse effect of antineoplastic and immunosuppressive drugs, initial encounter; I47.19 Other supraventricular tachycardia
CPT/HCPCS: 36415; 80053; 85025; 93005

== ENCOUNTER → 2025-02-15 15:55 | Outpatient (CLI) | payer OTHER, SELFPAY ==
[2024-06-07 15:06] VITALS: BMI 37.5
--- NOTE | 2025-02-15 15:56 | DI.US.S_ITS ---
PROCEDURE: US EXTREMITY NONVASC LOWER RT INDICATIONS: eval cyst, knee pain, palpable lump TECHNIQUE: Real-time scanning was performed of the posterior right knee , with image documentation. COMPARISON: [facility], CR, XR KNEE 1 OR 2 VIEWS RIGHT, 01/06/2025, 8:43. FINDINGS: In the area of concern of the right posterior knee, is a 0.6 x 1.3 by 0.4 cm anechoic collection with adjacent fat hyperemia. This is located within the subcutaneous fat. Deeper in the knee, is a 2 by a 3 x 1 cm anechoic collection, which may represent a possible Tapia's cyst. IMPRESSION: Right posterior knee superficial 1.3 cm anechoic collection with surrounding fat hyperemia, correlate for history of penetrating trauma. No associated radiopaque retained foreign body seen on comparison radiographs from 01/06/2025. This may represent a developing area of inflammation with surrounding fat hyperemia. Recommend close interval follow-up, if the area increases in size recommend CT knee with contrast to evaluate for abscess. Possible Tapia's cyst along the posterior knee. Dictated by: Real aMrtin M.D. on 02/16/2025 at 9:01 Approved by: Real Martin M.D. on 02/16/2025 at 9:24
== END ==
LOC: US 15:56
PROVIDERS: Family Provider Family Medicine; PCP Family Medicine; Referring Provider Chiropractor; Visit Provider Chiropractor
DX: M25.861 Other specified joint disorders, right knee (principal)
CPT/HCPCS: 76882

== ENCOUNTER → 2025-04-23 08:07 | Outpatient (CLI) | payer OTHER, SELFPAY ==
[2025-04-19 16:01] VITALS: BMI 37.5
[2025-04-23 08:49] LABS: Add Manual Diff / Slide Review NO; Hematocrit 38.8 % (36-46); Hemoglobin 13.1 g/dL (12.0-16.0); Lymphocytes Absolute Auto 600 /uL (1100-4500); Mean Corpuscular HGB Conc 33.8 % (30-36); Mean Corpuscular Hemoglobin 29.3 PG (26-34); Mean Corpuscular Volume 86.6 fL (80-100); Platelet Count 165 X10^3/uL (150-400)
[2025-04-23 08:59] LABS: Hemoglobin A1C% w Est Avg Glu 5.7 % (4.0-6.0)
[2025-04-23 09:06] LABS: Alanine Aminotransferase 21 IU/L (<35); Albumin 4.3 g/dL (3.5-5.0); Albumin Globulin Ratio 1.6 (1.0-2.8); Alkaline Phosphatase 90 U/L (38-126); Blood Urea Nitrogen 17 mg/dL (7-17); Calcium 9.0 mg/dL (8.4-10.2); Carbon Dioxide 29 mmol/L (22-32); Chloride 98 mmol/L (98-107); Cholesterol 134 mg/dL (140-199); Estimated Glomerular Filt Rate > 60 mL/min (>60); Globulin 2.7 g/dL (1.7-4.1); Glucose 126 mg/dL (70-99); HDL Cholesterol 60 mg/dL (40-60); HEMOLYSIS < 15 (0-50); Potassium 3.7 mmol/L (3.4-5.1); Sodium 136 mmol/L (137-145); Total Protein 7.0 g/dL (6.3-8.2); Triglycerides 164 mg/dL (35-150)
== END ==
PROVIDERS: Family Provider Family Medicine; PCP Family Medicine; Referring Provider Family Medicine; Visit Provider Family Medicine
DX: R63.1 Polydipsia (principal); R73.01 Impaired fasting glucose; R79.9 Abnormal finding of blood chemistry, unspecified
CPT/HCPCS: 36415; 80053; 80061; 82043; 82570; 83036; 85025

== ENCOUNTER 2025-05-31 12:17 | Outpatient (CLI) | payer OTHER, SELFPAY ==
[2025-04-19 16:01] VITALS: BMI 37.5
[2025-05-31] VITALS (9 sets, daily range): BP systolic 108–129; BP diastolic 56–65; PULSE 52–66; RESP 12–20; TEMP 36.2; O2SAT 92–98
[2025-05-31] MEDS: MIDAZOLAM 2 MG/2 ML VIAL IV ×2 (13:45→13:55)
[2025-05-31] MEDS: LIDOCAINE 2% INJ MDV 20ML 5 ML INJ (13:51)
[2025-05-31] MEDS: LIDOCAINE 1% 20 ML INJ (13:56)
--- NOTE | 2025-05-31 14:18 | PM.PROC.IR.1 ---
Date/Time/Diagnoses Date of procedure: 05/31/25 Time of procedure: 14:18 Pre-procedure diagnosis: 1. FACET ARTHROPATHY Post-procedure diagnosis: same Procedure Notes Procedure: 1. BILATERAL- L4, L5 and S1 DIAGNOSTIC MB BLOCKS with SA Anesthetic Indications: Joan is referred by Dr. Rhodes for treatment of Bilateral Axial LBP. Physician: Andrew Gilliam Total Fluoroscopy time (seconds): 12 Total sedation minutes: 21 Complications: none Procedure in detail & Post-procedure care: DESCRIPTION OF PROCEDURE Fluoroscopically guided, contrast-controlled bilateral L4, L5 and S1 medial branch blocks with 0.5cc of 2% Lidocaine. Following review of allergy and review of potential side effects and complications, including, but not necessarily limited to, infection, allergic reaction, local tissue breakdown, nerve injury, paralysis, stroke and possible , the patient indicated that the patient understood and agreed to proceed. An informed consent document was signed by the patient, witnessed by a nurse, and placed in the patient's chart. After review of previous anaesthesic history and IV conscious sedation the patient was deemed safe to proceed with today's procedure with IV conscious sedation as ASA class II designation. Safety time-out was performed to confirm patient ID, procedure to be performed and site of procedure. IV sedation was accomplished with a combination of 4mg of Versed was administered by the RN after DO order, titrated to patient comfort during the course of the procedure while the patient remained responsive to all verbal commands In the prone position, following sterile prep and drape of the lumbar region, the right L4, L5 and S1 anatomical location of the medial branch of the dorsal ramus was identified fluoroscopically. Subsequently an anesthetic skin wheal using 1% lidocaine solution was initiated at each of the anatomical spots. Subsequently then a 22-gauge 3.5-inch spinal needle was atraumatically introduced and advanced under fluoroscopic guidance at each of the corresponding sites at the right L4, L5 and S1 MB. After negative aspiration, 0.2cc of Isovue 200 was injected, confirming placement without vascular or intrathecal uptake. Subsequently then 0.5cc of 2% Lidocaine solution was injected at each of the corresponding sites at the right L4, L5 and S1 medial branch locations. The identical procedure was replicated on the left. The patient tolerated the procedure well without signs or symptoms of complications prior to transfer to the recovery area continued monitoring without incident. Post-procedure, the patient was monitored initiating provocative activities to measure the amount of relief from block of the facetogenic pain. The patient reported a VAS of 7 prior to the procedure and a post-procedure VAS of 1. It has been a pleasure to assist in the diagnostic and therapeutic care of your patient. POST OP INSTRUCTIONS The patient was provided with a Pain Log to complete over the next several hours and subsequent days prior to the patient's follow up with the ordering physician. If the patient has centralized traffic control operator relief to the solution applied, then they may be a candidate for medial branch rhizotomy. The patient is aware, was provided, once again, with a Pain Log and will follow up with the referring physician for review and clinical correlation
== END 2025-05-31 14:35 | disposition home or self-care (01) ==
LOC: RAD 12:18
PROVIDERS: Family Provider Family Medicine; PCP Family Medicine; Referring Provider Family Medicine; Visit Provider Physical Medicine & Rehabilitation
DX: M47.816 Spondylosis without myelopathy or radiculopathy, lumbar region (principal); M47.817 Spondylosis without myelopathy or radiculopathy, lumbosacral region
CPT/HCPCS: 64493; 64494; 99152; J2250